=== PATIENT | female | born 1975 | race African-American/Black ===

== ENCOUNTER 2016-11-17 14:30 | Inpatient (IN) | payer OTHER ==
[2016-11-17] VITALS (8 sets, daily range): BP systolic 80–98; BP diastolic 42–55; BMI 27.3
[~2016-11-17] VITALS: Ht 160 cm; Wt 74.8 kg
--- NOTE | ~2016-11-17 | CN ---
PATIENT NAME:SHARON BELTRE MEDICAL RECORD: [id number] : 71 LOCATION:[facility]CV[facility] ADMIT DATE: 11/17/16 ACCOUNT: [id number] CONSULTING PHYSICIAN: TRACIE TROY MD REFERRING PHYSICIAN: RIO SY MD DATE OF CONSULTATION: 11/18/2016 Cardiology Consultation ADMITTING DIAGNOSES: 1. Chest pain. 2. Coronary artery disease. 3. Previous percutaneous transluminal coronary angioplasty stent. 4. Diabetic ketoacidosis. 5. Insulin-dependent diabetes. HISTORY OF PRESENT ILLNESS: Mrs. Beltre presents with diabetic ketoacidosis. She is well having chest pain; however, her chest pain is not like her previous angina. Her chest pain is only present when she coughs. She has no ST-T changes on her EKG. Troponin is mildly elevated at 0.239. Creatinine is normal at 1.1, hemoglobin is mildly depressed at 11.4. She has a history of a recent GI bleed for which she was treated at [facility]. She has not had any further bleeding. PHYSICAL EXAMINATION: GENERAL APPEARANCE: Well-nourished, well-developed, appears stated age. Level of distress, comfortable. PSYCHIATRIC: Mental status, alert, normal affect. Orientation, oriented to time, place and person. EYES: Lids and conjunctiva, noninjected. No discharge, no pallor. ENT: Lips, teeth, gums, normal dentition. Oropharynx, no cyanosis, no pallor. NECK: Carotid arteries, bilateral normal upstroke, no bruits, no thrills. JUGULAR VEINS: No jugular venous pressure or distention. CERVICAL LYMPH NODES: Nontender, nonenlarged. THYROID: Not enlarged. Nontender. No nodules. LUNGS: Respiratory effort, unlabored. CHEST: Normal curvature. No thoracic deformity. No chest wall tenderness. Percussion, resonant. Auscultation, clear. No wheezes, no rales, no rhonchi. CARDIOVASCULAR: Precordial exam, nondisplaced. No heaves or pericardial thrills. Rate and rhythm, regular. Heart sounds, normal S1, normal S2. No S3, no gallop, no rub. Systolic murmur, not heard. Diastolic murmur, not heard. EXTREMITIES: No cyanosis, no edema. Peripheral pulses, full and equal in all extremities, except as noted. No bruits appreciated. ABDOMEN: Soft, nondistended. Normal aorta. No bruit. Nontender. No masses. Liver, nontender, no hepatomegaly. Spleen, nontender, no splenomegaly. MUSCULOSKELETAL: No joint tenderness. No joint swelling. No erythema. NEUROLOGICAL: Normal gait, normal strength, normal tone. SKIN: Warm and dry. OVERALL IMPRESSION: Mildly elevated troponin with chest pain. The chest pain is musculoskeletal in nature. Due to a recent gastrointestinal bleed, we would not undertake repeat coronary angiography or percutaneous coronary intervention. She is stable from the standpoint of bleeding. We would not reintroduce dual antiplatelet therapy at this time. Her EKG is with no ST-T abnormalities. At this time, no other cardiac workup or treatment is necessary. CONSULT REPORT [id number] SHARON BELTRE TRANSINT:[id number] Voice Confirmation ID: [id number] DOCUMENT ID: [id number] TRACIE TROY MD CC: [id number] DICTATION DATE: 11/18/16939 KINDERGARTEN PARAPROFESSIONAL: 11/18/16 1347 ADM IN [place] [id number] [place] [id number]
[2016-11-17 15:49] LABS: BASOPHILS 0.2 % (0-2); EOSINOPHILS 0.9 % (0-7); HEMATOCRIT 35.4 % (36.0-48.0); HEMOGLOBIN 12.1 g/dL (12-16); LYMPHOCYTES 34.6 % (15-50); MCH 27.9 pg (26.0-34.0); MCHC 34.2 g/dL (31.0-37.0); MCV 81.8 fL (80.0-100.0); MEAN PLATELET VOLUME 10.7 fL (7.4-10.4); MONOCYTES 10.6 % (2-11); NEUTROPHILS 53.7 % (40-80); PLATELET COUNT 316 10x3/uL (130-400); RBC 4.33 10x6/uL (4.00-5.40); RDW 14.4 % (11.5-14.5); WBC 5.4 10x3/uL (4.8-10.8)
[2016-11-17 16:26] LABS: ALBUMIN 3.8 g/dL (3.4-5.0); BILIRUBIN - TOTAL 0.44 mg/dL (0.2-1.3); CALCIUM 9.2 mg/dL (8.5-10.1); CARBON DIOXIDE 25.5 mmol/L (21.0-32.0); CREATININE - SERUM 1.4 mg/dL (0.6-1.3); POTASSIUM - SERUM 3.5 mmol/L (3.5-5.1)
[2016-11-17 16:32] LABS: TROPONIN-I 0.404 ng/mL (0.000-0.060)
--- NOTE | 2016-11-17 18:36 | NUR ---
Received patient from ER via stretcher. Patient awoken and was able to slide from stretcher to bed. Patient is lethargic. Oriented to person, place and situation, reoriented to time. ID band, allery band and fall risk band applied, right hand PIV dated. Connected to CM, sinus tach, SBP 90s. Call light within reach.
--- NOTE | 2016-11-17 19:00 | NUR ---
Received patient resting in bed with eyes closed, assessment completed per flowsheet. Patient AO x4, grimacing and complaining of pain in chest and "lump" in abdomen. Eyes PERRLA @ 4mm with brisk response, sclera is white. S1/S2 noted Sinus Tach on telemetry with HR 102, rhythmic and regular. Breathing is even and unlabored on room air with O2 sat 96%, lung sounds clear bilateral upper and mid with diminished lower. Abdomen is soft and flat with bowel sounds active x4, generalized tenderness to palpation. Full ROM all extremities with all pulses weakly palpable, cap refill < 3 sec. 22g PIV noted R hand, NS @ 75ml/hr and Insulin drip @ 5ml/hr initiated. Patient c/o chest pain 9/10, acute sharp aching pain with PRN medication given. No further needs at this time, all VSS and will continue to monitor.
--- NOTE | 2016-11-17 19:24 | NUR ---
Spoke to received orders, informed of patient consult and current condition. Spoke to , ordered for EKG at this time. Informed of patients current condition. Report given to Daron OSWALD.
--- NOTE | 2016-11-17 20:40 | NUR ---
Spoke to Dr Kearns, new orders received. Insulin drip D/C, change to High resistance Humalog scale. 500ml saline bolus given for hypotension. Lovenox 1mg subcutaneous ordered Q12 hrs. Orders read back and confirmed.
--- NOTE | 2016-11-17 23:00 | NUR ---
Reassessment completed per floweet, patient resting in bed with eyes closed. S1/S2 noted Sinus Tach on telemetry with HR 103, rhythmic and regular. Breathing is even and unlabored on room air with O2 sat 96%. All pulses weakly palpable with cap refill < 3 sec. patient states pain 7/10 in chest and abdomen, PRN medication given and will reasses. No further needs at this time, all VSS and will continue to monitor.
--- NOTE | 2016-11-17 23:45 | NUR ---
Patient BS 386, treated per [facility] High Resistance scale. Will recheck in 3 hours per orders.
[2016-11-18] VITALS (21 sets, daily range): BP systolic 95–183; BP diastolic 44–111; Ht 160 cm; Wt 74.8 kg
--- NOTE | 2016-11-18 01:00 | NUR ---
Patient c/o headache, PRN medication provided and BS rechecked. Patient BS 247. Will continue to monitor.
--- NOTE | 2016-11-18 03:00 | NUR ---
Reassessment completed per flowsheet, patient resting in bed with eyes open talking to family on the phone. Patient AO x4, calm and cooperative. States her sugar "so high because she's afraid she'll kill herself, so she hasn't been taking her insulin". Educated patient about insulin usage and checking blood sugar, but more education is needed. S1/S2 noted NSR on telemetry with HR 99, rhythmic and regular. Breathing is even and unlabored on room air with O2 sat 96%, lung sounds clear bilateral upper with crackles noted mid and diminished lower. All pulses palpable with cap refill < 3 sec, skin is warm/dry to touch. Patient c/o "slight headache" and chest discomfort, will provide PRN medication when patient requests. No further needs at this time, all VSS and will continue to monitor.
--- NOTE | 2016-11-18 05:00 | NUR ---
Patient assisted to bathroom, concentrated yellow urine noted. Denies pain or other needs at this time, all VSS and will continue to monitor.
[2016-11-18 06:55] LABS: BASOPHILS 0.1 % (0-2); EOSINOPHILS 0.8 % (0-7); HEMATOCRIT 33.4 % (36.0-48.0); HEMOGLOBIN 11.4 g/dL (12-16); IMMATURE GRANULOCYTES 0.1 % (0-5); LYMPHOCYTES 27.8 % (15-50); MCH 28.2 pg (26.0-34.0); MCHC 34.1 g/dL (31.0-37.0); MCV 82.7 fL (80.0-100.0); MEAN PLATELET VOLUME 10.4 fL (7.4-10.4); MONOCYTES 7.3 % (2-11); NEUTROPHILS 63.9 % (40-80); PLATELET COUNT 265 10x3/uL (130-400); RBC 4.04 10x6/uL (4.00-5.40); RDW 14.7 % (11.5-14.5)
[2016-11-18 07:38] LABS: ANION GAP 11.6 mmol/L (8-16); CALCIUM 8.4 mg/dL (8.5-10.1); CARBON DIOXIDE 26.4 mmol/L (21.0-32.0); CREATININE - SERUM 1.1 mg/dL (0.6-1.3)
[2016-11-18 07:51] LABS: TROPONIN-I 0.239 ng/mL (0.000-0.060)
--- NOTE | 2016-11-18 08:05 | NUR ---
SPOKE WITH PT ABOUT HER HOME INSULIN REGIMEN. STATES SHE TAKES 20 UNITS OF LEVIMIR TWICE DAILY AND A SLIDING SCALE THAT AVERAGES 10-15 UNITS EACH TIME. STATES SHE CHECKS HER FSBS 6-8 TIMES DAILY. C/O OF "CHEST PAIN" IN HER LUNGS WHEN SHE COUGHS. ENCOURAGED COUGHING AND DEEP BREATHING. STATES SHE HAS HAD A "KNOT ON THE LEFT SIDE" OF HER FACE AND HAS "BAD TEETH".
--- NOTE | 2016-11-18 09:02 | NUR ---
C/O OF PAIN. REQUESTING PAIN MEDS. STATES PAIN IS "THE SAME THIS MORNING" AND HURTS WHEN SHE COUGHS. NO CHANGES IN HEAD OF PRECISION TARGETING OR VITAL SIGNS.
--- NOTE | 2016-11-18 09:40 | NUR ---
HOT PACK REQUESTED AND PROVIDED.
--- NOTE | 2016-11-18 10:16 | NUR ---
DELROY DIETITIAN AT BEDSIDE.
[2016-11-18] MEDS ORDERED: HYDROCODONE-APA1 TAB PO (11:39)
[2016-11-18] MEDS ORDERED: NITROQUICK0.4 MG SL (11:39)
[2016-11-18] MEDS ORDERED: LEVEMIR100 U/M1 SC (11:40)
[2016-11-18] MEDS ORDERED: GLUCOPHAGE500 MG PO (11:40)
[2016-11-18] MEDS ORDERED: NEURONTIN 300300 MG PO (11:41)
[2016-11-18] MEDS ORDERED: NORVASC5 MG PO (11:41)
[2016-11-18] MEDS ORDERED: RANEXA500 MG PO (11:41)
[2016-11-18] MEDS ORDERED: BRILINTA90 MG PO (11:41)
[2016-11-18] MEDS ORDERED: LISINOPRIL5 MG PO (11:42)
[2016-11-18] MEDS ORDERED: ISOSORBIDE MON120 M1 PO (11:42)
[2016-11-18] MEDS ORDERED: COREG6.25 MG PO (11:43)
[2016-11-18] MEDS ORDERED: ISOSORBIDE MONO30 M1 PO (11:43)
[2016-11-18] MEDS ORDERED: PROTONIX40 MG PO (11:44)
[2016-11-18] MEDS ORDERED: LIPITOR80 MG PO (11:44)
--- NOTE | 2016-11-18 12:10 | NUR ---
VISITORS AT BEDSIDE. MEDICATIONS PER MAR.
--- NOTE | 2016-11-18 14:55 | NUR ---
CALLED NURSE-STATED CHEST HURT NOT ABLE TO SPECIFY CAUSE -08/17-MORPHINE 1MG IVP GIVEN-N/S AT 30ML/H-FAMILY APPROACHED DESK ASKING WHAT IS GOING ON WITH --RETURNED TO ROOM WITH FAMILY AND OBTAINED PT PERMISSION--PT STATED TO FAMILY BEING TESTED FOR PNUEMONIA-
--- NOTE | 2016-11-18 14:59 | NUR ---
FAMILY AT BEDSIDE. PERMISSION FROM PT TO SPEAK WITH FAMILY GIVEN. ALL QUESTIONS ANSWERED. FAMILY STATES "DID YOU SEE THE DOCTOR WHO YOU GOT KICKED OUT FROM?" PT STATES "YES I SAW HIM TODAY. I SWEAR HE WAS DRUNK". FAMILY APOLOGIZES AND STATES "HE WAS NOT DRUNK. WE ARE SO SORRY SHE SAID THAT" NO FURTHER QUESTIONS OR CONCERNS.
--- NOTE | 2016-11-18 19:00 | NUR ---
RECIEVED REPORT, INITIAL ASSESSMENT COMPLETE, PLEASE SEE FLOW SHEETS FOR DETAILS. A&O X4. C/O PAIN 8/10 IN HEAD AND CHEST, WILL GIVE PAIN MEDS PER ORDERS. MOVES SELF AROUND IN BED. CONCERNED ABOUT RESULTS OF CT THIS EVENING, INFORMED HER IT COULD BE IN THE MORNING THAT SHE GETS HER RESULTS BUT IF THEY CAME IN SOONER I WOULD LET HER KNOW. ASKING FOR A SNACK, WILL GIVE AN APPROPROATE SNACK PER DIET ORDERS. PIV TO RIGHT HAND CDI, NS INFUSING AT 25ML/HR. WILL CPOC.
--- NOTE | 2016-11-18 21:00 | NUR ---
TOLERATED MEDS WELL, ASKED FOR PAIN MED, WILL GIVE PER ORDERS.
--- NOTE | 2016-11-18 21:14 | NUR ---
PROVIDED PAIN MED, PT WAS UP TO RR, WILL CPOC.
--- NOTE | 2016-11-18 21:39 | NUR ---
AFTER PATIENT GOT BACK FROM RR, INFORMED ME THAT HER IV WAS LEAKING, CHECKED ON IV AND WAS ABLE TO FLOAT BACK INTO VEIN ALL THE WAY, IV IS PATENT, NEW DRESSING APPLIED. ALSO PROVIDED PERSONAL HYGIENE SUPPLIES, PT WAS VERY THANKFUL FOR THESE.
--- NOTE | 2016-11-18 22:51 | NUR ---
PT RESTING IN BED, NO S&S OF ACUTE DISTRESS NOTED. BED LOW AND LOCKED, CALL LIGHT IN REACH. WILL CPOC.
--- NOTE | 2016-11-19 01:00 | NUR ---
PROVIDED Chaitanya PEREA AND AYDEN PER PT REQUEST. C/O PAIN, GAVE PAIN MEDS PER ORDERS. BED LOW AND LOCKED, CALL LIGHT IN REACH. WILL CPOC.
[2016-11-19 03:00] VITALS: BP 118/79
--- NOTE | 2016-11-19 03:10 | NUR ---
SLEEPING, NO S&S OF DISTRESS NOTED. WILL CPOC.
[2016-11-19 04:25] LABS: BASOPHILS 0.2 % (0-2); EOSINOPHILS 1.9 % (0-7); HEMATOCRIT 31.5 % (36.0-48.0); HEMOGLOBIN 10.3 g/dL (12-16); MCH 27.7 pg (26.0-34.0); MCHC 32.7 g/dL (31.0-37.0); MEAN PLATELET VOLUME 10.3 fL (7.4-10.4); NEUTROPHILS 49.9 % (40-80); PLATELET COUNT 244 10x3/uL (130-400); RBC 3.72 10x6/uL (4.00-5.40); RDW 14.9 % (11.5-14.5)
[2016-11-19 04:33] LABS: MCV 84.7 fL (80.0-100.0); WBC 5.9 10x3/uL (4.8-10.8)
--- NOTE | 2016-11-19 04:37 | NUR ---
PAGING STOCK REPLENISHER RENAL MD AFTER ALL LABS RECIEVED.
[2016-11-19 04:40] LABS: ANION GAP 10.4 mmol/L (8-16); CALCIUM 8.1 mg/dL (8.5-10.1); CARBON DIOXIDE 26.8 mmol/L (21.0-32.0); CREATININE - SERUM 1.1 mg/dL (0.6-1.3); POTASSIUM - SERUM 3.2 mmol/L (3.5-5.1)
--- NOTE | 2016-11-19 05:00 | NUR ---
RESTING, BED LOW AND LOCKED, CALL LIGHT IN REACH. WILL CPOC.
--- NOTE | 2016-11-19 06:05 | NUR ---
REQUESTED PAIN MEDS, THESE WERE PROVIDED PER ORDERS.
[2016-11-19 07:00] VITALS: BP 141/91
--- NOTE | 2016-11-19 07:53 | NUR ---
PT AWAKE IN BED AT THIS TIME. DENIES ANY NEEDS. NOTED POTASSIUM LEVEL IS 3.2 PT IS ON ELECTROLYTE PROTOCOL, WILL REPLACE POTASSIUM PER ORDERS. NO ACUTE DISTRESS NOTED. WILL CONTINUE PLAN OF CARE.
[2016-11-19] MEDS ORDERED: HYDROCODONE-APA1 TAB PO (08:23)
[2016-11-19] MEDS ORDERED: FLUTICASONE PRO16 GM NASAL (08:25)
[2016-11-19] MEDS ORDERED: INSULINSYR&NEEDLES SC (08:26)
--- NOTE | 2016-11-19 09:22 | NUR ---
LYING IN BED RESTING AT THIS TIME. NO ACUTE DISTRESS NOTED. RESPIRATIONS STEADY AND UNLABORED. PT ABLE TO STATE NEEDS AND AWAKENS EASILY WHEN SPOKEN TO. WILL CONTINUE PLAN OF CARE.
--- NOTE | 2016-11-19 09:34 | NUR ---
NOTED ORDER FOR PT TO BE DISCHARGED HOME. CONTACTING CASE MANAGEMENT TO NOTIFY WELL TO SEE IF CAN GET REFERRAL TO ENDOCRINOLOGY, DR CARIAS. SPOKE WITH CASE MANAGEMENT AND STATED REFERRAL ORDER AND PATIENT INFORMATION WILL BE FAXED TO SE CARIAS'S OFFICE MONDAY AND TO HAVE PT CALL DR CARIAS'S OFFICE. ALSO NOTED FOR PT TO CALL PCP MONDAY TO SET UP APPOINTMENT IN 1 WEEK. WILL ALSO GIVE A COPY OF HIGH RESISTANCE SLIDING SCALE FOR PT TO USE ACHS. PT TO BE ON ADA DIET. PT TO FOLLOW UP WITH CARDIOLOGY PER CARDIOLOGY RECCOMENDATIONS. WILL NOTIFY PT WITH DISCHARGE TEACHINGS. WILL CONTINUE PLAN OF CARE.
--- NOTE | 2016-11-19 10:43 | NUR ---
DISCHARGE PAPERWORK SIGNED BY PT. PT DENIES ANY QUESTIONS OR CONCERNS. PT GIVEN HARD SCRIPTS, INFORMATION REGARDING UPCOMING APPOINTMENTS AND STATES UNDERSTANDING TO CONTACT DR. GAYLE TO MAKE AN APPOINTMENT IN A WEEK AND STATES UNDERSTANDING TO CONTACT DELIVERER FOOD DR CARIAS MONDAY AND THAT CASE MANAGEMENT WILL FAX PT INFORMATION TO OFFICE. PT ALSO GIVEN COPY OF HIGH RESISTANCE SLIDING SCALE INFORMATION PER PHYSICIAN ORDER. PT STATED DR TROY STATED HIS OFFICE WILL CONTACT HER TO MAKE AN APPOINTMENT. PT DENIES ANY QUESTIONS OR CONCERNS. WILL CONTINUE PLAN OF CARE.
[2016-11-19 11:00] VITALS: BP 148/94
--- NOTE | 2016-11-19 11:33 | NUR ---
IV TO RIGHT HAND DC AT THIS TIME, CATHETER TIP INTACT. PTS DAUGHTER HERE AT THIS TIME TO TAKE PT HOME. WILL DISCHARGE SHORTLY.
--- NOTE | 2016-11-19 11:41 | NUR ---
PT DISCHARGED HOME AT THIS TIME. NO ACUTE DISTRESS NOTED. NOTED PT REFUSED ALLOWING STAFF TO CHECK BLOOD SUGAR LEVEL TO TREAT VIA SLIDING SCALE STATING HER BLOOD SUGAR WAS 117 EARLIER WHEN CHECKED AND SHE WAS READY TO GO HOME. PT RECIEVED ALL DISCHARGE PAPERWORK AND DENIES ANY QUESTIONS OR CONCERNS. LEFT WITH ALL PERSONAL ITEMS, DISCHARGE PAPERWORK, HARD SCRIPTS, UPCOMING APPOINTMENT INFORMATION, AND ALL TEACHING INFORMATION. PT DENIES ANY FURTHER QUESTIONS OR CONCERNS AND STATES UNDERSTANDING TO ALL TEACHINGS, INFORMATION REGARDING UPCOMING APPOINTMENTS, WELL DISCHARGE INFORMATION. LEFT VIA PERSONAL VEHICLE WITH DAUGHTER. NO FURTHER ACTIONS.
== END 2016-11-19 11:45 | disposition home or self-care (01) | DRG 313 ==
LOC: D.ER 14:30 → D.CVICU 17:20
PROVIDERS: Emergency Medicine; Internal Medicine Interventional Cardiology; ADMIT Family Medicine
DX: R07.9 Chest pain, unspecified (principal); E10.10 Type 1 diabetes mellitus with ketoacidosis without coma; Z79.4 Long term (current) use of insulin; E11.40 Type 2 diabetes mellitus with diabetic neuropathy, unspecified; I25.10 Atherosclerotic heart disease of native coronary artery without angina pectoris; Z95.1 Presence of aortocoronary bypass graft; Z95.5 Presence of coronary angioplasty implant and graft; R79.89 Other specified abnormal findings of blood chemistry; J32.9 Chronic sinusitis, unspecified

== ENCOUNTER 2018-04-03 03:56 | Inpatient (IN) | payer MEDICAID ==
[2018-04-03] VITALS (27 sets, daily range): BP systolic 109–234; BP diastolic 57–101; BMI 26.9
[~2018-04-03] VITALS: Ht 160 cm; Wt 71.0 kg
--- NOTE | ~2018-04-03 | MORECARE ---
CASE MANAGEMENT DISCHARGE SUMMARY PATIENT: SHARON APONTE UNIT: [id number] ADM DATE: 04/03/18 AGE: 42 : [birth year] SEX: F ROOM/BED: D.CV02 AUTHOR: KRISTOPHER,DOC PHYSICIAN: REFERRING PHYSICIAN: LAURIE RIVERO MD DATE OF SERVICE: 04/05/18 Discharge Plan Patient Name: SHARON APONTE Facility: [facility]:[place] : 1975 Planned Disposition: Home Anticipated Discharge Date: Discharge Date: Expected LOS: Initial Reviewer: [email or web address] Initial Review Date: 04/05/2018 Generated: 04/05/18 2:17 pm Comments DCP- Discharge Planning Updated by [email or web address]: Neelam Henley on 04/05/18 12:[address] Patient Name: SHARON APONTE Admission Status: ER Accout number: [id number] Admission Date: 04-03-2018 : 1975 Admission Diagnosis: Attending: LAURIE HERNANDEZ Current LOS: 2 Anticipated DC Date: Planned Disposition: Home Primary Insurance: MEDICAID [place] Discharge Planning Comments: CM met with patient at bedside. Patient plans to return home with her daughter. She states her daughter will transfer her home upon discharge via private vehicle. Patient denies any discharge needs. Patient requested information on cardiac rehab. CM called and left message with Denise at [facility]. CM will continue to follow and assist with discharge planning / needs. Slps: Neelam Henley DCPIA - Discharge Planning Initial Assessment Updated by [email or web address]: Neelam Henley on 04/05/18 1:06 pm * Is the patient Alert and Oriented? Yes * How many steps to enter\exit or inside your home? 10 * PCP [facility] * Pharmacy [facility] * Preadmission Environment Home with Family * ADLs Independent * Equipment Cane * List name and contact numbers for known caregivers / representatives who currently or will assist patient after discharge: CORINA APONTE -DAUGHTER - [phone] * Verbal permission to speak to the caregivers and representatives has been obtained from the patient. N/A * Community resources currently utilized None * Additional services required to return to the preadmission environment? No * Can the patient safely return to the preadmission environment? Yes * Has this patient been hospitalized within the prior 30 days at any hospital? No Last DP export: 04/05/18 12:10 Patient Name: SHARON APONTE Page 39837 at 1317 All edits/amendments must be made on the electronic document DICTATION DATE: 04/05/181315 SAMPLE TAILOR: EMILY 04/05/181315 RPT#: [id number] DC DATE: STATUS: ADM IN [facility] [address] [place] [address] END OF REPORT
--- NOTE | ~2018-04-03 | MORECARE ---
CASE MANAGEMENT DISCHARGE SUMMARY PATIENT: SHARON APONTE UNIT: [id number] ADM DATE: 04/03/18 AGE: 42 : 71 SEX: F ROOM/BED: D.CV02 AUTHOR: KRISTOPHER,DOC PHYSICIAN: REFERRING PHYSICIAN: LAURIE RIVERO MD DATE OF SERVICE: 04/06/18 Discharge Plan Patient Name: SHARON APONTE Facility: [facility]:[place] : 1975 Planned Disposition: Home Anticipated Discharge Date: Discharge Date: 04/05/2018 Expected LOS: Initial Reviewer: [email or web address] Initial Review Date: 04/05/2018 Generated: 04/06/18 7:51 pm Comments DCP- Discharge Planning Updated by [email or web address]: Neelam Henley on 04/05/18 12:[address] Patient Name: SHARON APONTE Admission Status: ER Accout number: [id number] Admission Date: 04-03-2018 : 1975 Admission Diagnosis: Attending: LAURIE HERNANDEZ Current LOS: 2 Anticipated DC Date: Planned Disposition: Home Primary Insurance: MEDICAID [place] Discharge Planning Comments: CM met with patient at bedside. Patient plans to return home with her daughter. She states her daughter will transfer her home upon discharge via private vehicle. Patient denies any discharge needs. Patient requested information on cardiac rehab. CM called and left message with Denise at [facility]. CM will continue to follow and assist with discharge planning / needs. Freelance [address] Stenographer: Neelam Henley DCPIA - Discharge Planning Initial Assessment Updated by [email or web address]: Neelam Henley on 04/05/18 1:06 pm * Is the patient Alert and Oriented? Yes * How many steps to enter\exit or inside your home? 10 * PCP [facility] * Pharmacy [facility] * Preadmission Environment Home with Family * ADLs Independent * Equipment Cane * List name and contact numbers for known caregivers / representatives who currently or will assist patient after discharge: CORINA APONTE -DAUGHTER - [phone] * Verbal permission to speak to the caregivers and representatives has been obtained from the patient. N/A * Community resources currently utilized None * Additional services required to return to the preadmission environment? No * Can the patient safely return to the preadmission environment? Yes * Has this patient been hospitalized within the prior 30 days at any hospital? No Last DP export: 04/05/18 12:17 Patient Name: SHARON APONTE Page 26601 at 1851 All edits/amendments must be made on the electronic document DICTATION DATE: 04/06/181849 TURKEY PINNER: EMILY 04/06/181849 RPT#: [id number] DC DATE:04/05/18 STATUS: DIS IN [facility] [address] [place] [address] END OF REPORT
--- NOTE | ~2018-04-03 | HEMODYNAMI ---
PATIENT:SHARON APONTE MEDICAL RECORD: [id number] : 71 LOCATION:[facility] D.CV02 ADMISSION DATE: 04/03/18 Generatedon:04/05/20188:16 Patient name: SHARON APONTE Patient #: [id number] SSN: : 1975 Date of study: 04/05/2018 Page: Of Hemodynamic Procedure Report Patient Data Patient Demographics Procedure consent was obtained First Name: SHARON Gender: Female Last Name: FADI : 1975 Patient #: [id number] Age: 42 year(s) Race: Black Additional ID: [id number] Contact details Address: [address] [place] [address] State: [place] City: [place] Zip code: [address] Admission Admission Data Admission Date: 04/03/2018 Admission Time: 7:12 Room #: [facility] Procedure Procedure Types Cath Procedure Diagnostic Procedure LHC LHC w/Coronaries w/Grafts Procedure Description Procedure Date Procedure Date: 04/05/2018 Procedure Start Time: 7:36 Procedure End Time: 8:12 Procedure Staff Name Function Erlin Carlos MD Performing Physician Mau Martínez RT Monitor Houston Davis RT Monitor Cathy Valdes RN Nurse Pastora Rebolledo RT Scrub Procedure Data Cath Procedure Fluoroscopy Diagnostic fluoroscopy Total fluoroscopy Time: 5.7 time: 5.7 min min Diagnostic fluoroscopy Total fluoroscopy dose: 507 dose: 507 mGy mGy Contrast Material Contrast Material Type Amount (ml) Visipaque 270 0 Isovue 300 88 Entry Location Entry Primary Successful Side Size Upsize Upsize Entry Closure Succes sful Closure Location (Fr) 1 (Fr) 2 (Fr) Remarks Device Remarks Femoral Right 5 Fr Exoseal artery Diagnostic catheters Device Type Used For End Catheter Placement MULTIPACK JL 4.0 5Fr Procedure catheter DIAGNOSTIC AR MOD 5Fr Right Coronary Catheter ([id number]) Angiography DIAGNOSTIC LCB 5Fr SVG Angiography catheter ([id number]) DIAGNOSTIC IM 5Fr SVG Angiography catheter ([id number]) MULTIPACK Pigtail 5 Fr Procedure catheter Procedure Complications No complications Procedure Medications Medication Administration Route Dosage 0.9% NaCl I.V. 100 ml/hr Oxygen etCO2 Nasal cannula 2 l/min Lidocaine 2% added to field 20 Heparin Flush Bag added to field 2 bags (1000units/500ml NS) Versed I.V. 2 mg Fentanyl I.V. 100 mcg Versed I.V. 2 mg Fentanyl I.V. 50 mcg Versed I.V. 2 mg Fentanyl I.V. 50 mcg Hemodynamics Rest Heart Rate: 85 (bpm) Pressure Samples Time Site Value (mmHg) Purpose Heart Use Rate(bpm) 7:59 AO 89/68(78) Snapshot 98 8:03 LV 128/3,12 Snapshot 101 8:07 AO 116/66(85) Pullback 98 8:07 LV 114/-2,7 Pullback 98 Gradients Valve Time Site 1 Site 2 Mean SEP/DFP Peak To Heart Use (mmHg) (sec/min) Peak Rate (mmHg) (bpm) Aortic 8:03 LV AO 99 Aortic 8:07 LV AO 0 9 0 98 114/-2,7 116/66(85) Calculations Valve P-P Mean Valve Index Valve Source Name Gradient Area Flow (cm2) Aortic 0 0 0 0 Snapshots Pre Cath Intra NCS Post Cath Vital Signs Time Heart Resp SPO2 etCO2 NIBP (mmHg) Rhythm Pain Sedation Rate (ipm) (%) (mmHg) Status Level (bpm) 7:24:10 68 19 96 33.5 221/113(160) NSR 0 (11) 10(A) , No pain 7:28:34 93 13 97 36.4 143/95(119) NSR 0 (11) 10(A) , No pain 7:32:47 90 12 98 35.6 118/78(95) NSR 0 (11) 10(A) , No pain 7:36:54 96 12 99 41.6 122/78(86) NSR 0 (11) 10(A) , No pain 7:40:58 98 16 98 44.6 105/78(102) NSR 0 (11) 10(A) , No pain 7:45:02 102 14 97 23.7 95/78(91) NSR 0 (11) 9(A) , No pain 7:49:05 103 12 96 14.1 109/67(85) NSR 0 (11) 9(A) , No pain 7:53:15 102 14 98 30.4 127/64(85) NSR 0 (11) 9(A) , No pain 7:57:25 104 13 97 11.1 104/67(101) NSR 0 (11) 9(A) , No pain 7:59:44 103 13 96 11.8 111/69(108) NSR 0 (11) 9(A) , No pain 8:03:52 96 13 98 28.1 111/65(85) NSR 0 (11) 9(A) , No pain 8:07:58 97 13 98 30 101/66(94) NSR 0 (11) 10(A) , No pain 8:12:43 100 3 97 31.1 94/65(88) NSR 0 (11) 10(A) , No pain Medications Time Medication Route Dose Verified Delivered Reason Notes Effe ctiveness by by 7:23:35 0.9% NaCl I.V. 100 Erlin Cathy used for ml/hr Terrance Valdes creative specialist 7:23:42 Oxygen etCO2 2 Erlin Cathy used for Nasal l/min Terrance Valdes procedure cannula RN 7:23:49 Lidocaine 2% added 20ml Erlin Erlin for local to vial Terrance Carlos MD anesthetic field 7:23:53 Heparin Flush added 2 Erlin Erlin used for Bag to bags Terrance Carlos MD procedure (1000units/500ml field NS) 7:31:38 Versed I.V. 2 mg Erlin Cathy for Terrance Valdes sedation RN 7:31:44 Fentanyl I.V. 100 Erlin Cathy for mcg Terrance Valdes sedation RN 7:36:41 Versed I.V. 2 mg Erlin Cathy for Terrance Valdes sedation RN 7:36:56 Fentanyl I.V. 50 Erlin Cathy for mcg Terrance Valdes sedation RN 7:40:36 Versed I.V. 2 mg Erlin Cathy for Terrance Valdes sedation RN 7:40:40 Fentanyl I.V. 50 Erlin Cathy for mcg Terrance Valdes sedation computer information systems instructor Log Time Note 7:00:58 Cathy Valdes RN sent for patient. Start room use. 7:16:06 Time tracking: Regular hours (M-F 7:00 - 5:00) 7:16:10 Plan of Care:Hemodynamics will remain stable., Cardiac rhythm will remain stable., Comfort level will be maintained., Respiratory function will remain adequate., Patient/ family verbilizes understanding of procedure., Procedure tolerated without complication., Recovers from procedure without complications.. 7:16:32 Patient received from CVICU to CCL 1 Alert and oriented. Tansferred to table in Supine position. 7:16:34 Warm blankets applied, and chanel hugger turned on for patient comfort. 7:16:34 Correct patient and procedure confirmed by team. 7:16:36 Signed procedure consent form obtained from patient. 7:16:43 ECG and BP/O2 sat monitors applied to patient. 7:21:42 Vital chart was started 7:23:35 0.9% NaCl 100 ml/hr I.V. was administered by Cathy Valdes RN; used for procedure; 7:23:42 Oxygen 2 l/min etCO2 Nasal cannula was administered by Cathy Valdes RN; used for procedure; 7:23:49 Lidocaine 2% 20ml vial added to field was administered by Erlin Carlos MD; for local anesthetic; 7:23:53 Heparin Flush Bag (1000units/500ml NS) 2 bags added to field was administered by Erlin Carlos MD; used for procedure; 7:28:54 Baseline sample Acquired. 7:29:57 Rhythm: sinus rhythm 7:29:58 Full Disclosure recording started 7:30:03 H&P Date Dictated: 04/05/2018 Within 30 days and on chart.. 7:30:04 Pre-procedure instructions explained to patient. 7:30:05 Pre-op teaching completed and patient verbalized understanding. 7:30:08 Family unavailable. 7:30:09 Patient NPO since Midnight. 7:30:10 Is the patient allergic to Iodine/contrast media? Yes. 7:30:12 Was the patient premedicated? Yes 7:30:12 Is patient on blood thinner?No 7:30:15 Patient diabetic? Yes. 7:30:16 If diabetic: On Metformin? Yes 7:30:27 Last dose unkown. 7:30:32 Previous problem with sedation/anesthesia? No ? 7:30:35 Snore? No 7:30:36 Sleep apnea? No 7:30:38 Deviated septum? No 7:30:39 Opens mouth fully? Yes 7:30:40 Sticks out tongue? Yes 7:30:47 Airway obstruction? Yes Asthma, COPD 7:30:51 Dentures? No ? 7:30:53 Pre procedure: right dorsailis pedis pulse 1+ Palpable, but thready & weak; easily obliterated 7:30:55 Patient pain scale 0/10 ?. 7:31:01 IV patent on arrival in right wrist with 0.9% NaCl at O. 7:31:04 Lab results completed and on chart. 7:31:08 Right groin area was prepped with chlora-prep and draped in sterile fashion 7:31:10 Alarms reviewed by R. N. 7:31:10 Sharps counted by scrub and verified by R.N. 7:31:12 --------ALL STOP TIME OUT------ 7:31:14 Final Timeout: patient, procedure, and site verified with staff and physician. All members of the team are in agreement. 7:31:17 Right groin site verified by team. 7:31:20 Physical assessment completed. ASA score P 2 - A patient with mild systemic disease as per Erlin Carlos MD. 7:31:24 Sedation plan: IV Moderate Sedation Medication:Versed, Fentanyl 7:31:38 Versed 2 mg I.V. was administered by Cathy Valdes RN; for sedation; 7:31:44 Fentanyl 100 mcg I.V. was administered by Cathy Valdes RN; for sedation; 7:33:05 Use device set Femoral Dx 7:33:06 ACIST Syringe (09177) opened to sterile field. 7:33:07 Bag Decanter (2002) opened to sterile field. 7:33:07 Medline Cath Pack ([id number]) opened to sterile field. 7:33:07 DIAGNOSTIC WIRE .035 260cm J wire (747126) opened to sterile field. 7:33:09 ACIST Hand Control (29935) opened to sterile field. 7:33:09 ACIST Manifold (99619) opened to sterile field. 7:33:10 DIAGNOSTIC Multipack 5Fr catheter set (UV9205) opened to sterile field. 7:33:11 Tegaderm 4 x 4 (1626W) opened to sterile field. 7:33:13 SHEATH 5FR [place] (ILL563) opened to sterile field. 7:33:16 Procedure started. 7:33:23 Zero performed for pressure channel P1 7:36:41 Versed 2 mg I.V. was administered by Cathy Valdes RN; for sedation; 7:36:46 Local anesthetic to right femoral artery with Lidocaine 2% by Erlin Carlos MD.INITIAL ACCESS ONLY 7:36:55 Access obtained with 4Fr micropunture. 7:36:56 Fentanyl 50 mcg I.V. was administered by Cathy Valdes RN; for sedation; 7:40:36 Versed 2 mg I.V. was administered by Cathy Valdes RN; for sedation; 7:40:40 Fentanyl 50 mcg I.V. was administered by Cathy Valdes RN; for sedation; 7:41:31 MICROPUNCTURE 4FR Cook ([id number]) opened to sterile field. 7:47:06 A MULTIPACK JL 4.0 5Fr catheter was advanced over the wire and used for Procedure. 7:47:53 A 5 Fr sheath was inserted into the Right Femoral artery 7:48:39 LCA angiography performed. 7:49:39 Catheter exchanged over wire. 7:50:35 A DIAGNOSTIC AR MOD 5Fr Catheter ([id number]) was advanced over the wire and used for Right Coronary Angiography. 7:50:49 RCA angiography performed. 7:52:49 SVG to RCA angiography performed. 7:53:47 Catheter exchanged over wire. 7:55:21 A DIAGNOSTIC LCB 5Fr catheter ([id number]) was advanced over the wire and used for SVG Angiography. 7:55:33 SVG to Circ angiography performed. 7:57:44 Catheter exchanged over wire. 7:58:16 A DIAGNOSTIC IM 5Fr catheter (480263M) was advanced over the wire and used for SVG Angiography. 8:02:07 ZARAGOZA to LAD angiography performed. 8:02:37 Catheter exchanged over wire. 8:02:42 A MULTIPACK Pigtail 5 Fr catheter was advanced over the wire and used for Procedure. 8:03:22 LV angiography performed. 8:04:08 LV gram done using SALVADOR 8:04:14 EF : 55 % 8:04:41 LV hemodynamics recorded. 8:04:45 Injector settings: Ml/sec: 10, Volume: 20, 8:07:21 Catheter exchanged over wire. 8:08:19 Sheath removed intact; hemostasis achieved with Exoseal to the Right Femoral artery. 8:08:21 Procedure ended.(Physican Out) 8:08:38 Fluoroscopy time 05.70 minutes. 8:08:48 Fluoroscopy dose: 507 mGy 8:08:48 Flurop Dose total: 507 8:09:56 Contrast amount:Visipaque 270 0ml. 8:09:58 Contrast amount:Isovue 300 88ml. 8:10:00 Sharps counted by scrub and verified by R.N. 8:10:01 Insertion/operative site no bleeding no hematoma. 8:10:04 Post-op/insertion site Right Femoral artery dressed using a 4 x 4 and Tegaderm. 8:10:07 Post right femoral artery:stable 8:10:35 Post Procedure Pulses reassessed and unchanged 8:10:38 Post procedure: right dorsailis pedis pulse 1+ Palpable, but thready & weak; easily obliterated. 8:10:41 Post procedure rhythm: sinus rhythm 8:10:43 Post procedure instruction explained to patient.Patient verbalizes understanding. 8:10:59 Procedure type changed to Cath procedure, Diagnostic procedure, LHC, LHC w/Coronaries w/Grafts 8:11:03 Procedure and supply charges have been captured, reviewed, submitted and are correct. 8:11:15 EXOSEAL 5Fr (EX500) opened to sterile field. 8:11:50 Procedure Complication : No complications 8:11:54 Vital chart was stopped 8:11:55 See physician's report for complete and final results. 8:11:57 Report given to CVICU. 8:12:01 Patient transfered to CVICU with Bed. 8:12:06 Procedure ended. 8:12:06 Full Disclosure recording stopped 8:12:13 End room use (Document Last) Device Usage Item Name Manufacture Quantity Catalog Number Hospital Part Current Min imal Lot# / Charge Number Stock Stock Serial# Code ACIST Syringe Acist 1 99618 614186 731081 104272 20 (17258) Wiziva Inc Bag Decanter Microtek 1 148951 88673 133912 5 () Medical Inc. Medline Cath Medline 1 [id number] 964956 66668 157468 5 Pack ([id number]) DIAGNOSTIC [facility] [place] 1 351431 644417 826503 468126 30 WIRE .035 260cm J wire (580757) ACIST Hand Acist 1 40260 079429 731967 479777 5 Control Medical (84003) Systems Inc ACIST Acist 1 69244 021257 478191 108028 5 Manifold Medical (00576) Systems Inc DIAGNOSTIC Cardinal 1 [id number] 763951 81218 433123 30 Multipack 5Fr Health catheter set (AE2117) Tegaderm 4 x 3M 1 1626W 945631 726802 491443 5 4 (1626W) SHEATH 5FR Terumo 1 YWK191 768352 102697 832773 5 [place] (NHZ956) DIAGNOSTIC [place] 1 [id number] 606394 370958 72968 5 IMT 5Fr Scientific Catheter ([id number]) MICROPUNCTURE [facility] 1 U14887 965022 270366 216553 5 4FR Cook ([id number]) MULTIPACK JL Cardinal 1 868031 5 4.0 5Fr Health catheter DIAGNOSTIC AR Cardinal 1 [id number] 850870 049415 702107 15 MOD 5Fr Health Catheter (363107T) DIAGNOSTIC Cardinal 1 [id number] 887122 479136 121444 5 LCB 5Fr Health catheter (800726H) DIAGNOSTIC IM Cardinal 1 [id number] 581971 079413 895595 5 5Fr catheter Health (511007M) MULTIPACK Cardinal 1 794879 5 Pigtail 5 Fr Health catheter EXOSEAL 5Fr Cardinal 1 EX500 955073 997916 067934 10 (EX500) Health Signature Audit [place] Stage Time Signature Unsigned Intra-Procedure 04/05/2018 Mau Martínez RT(R) 8:15:58 AM Signatures Monitor : Mau Martínez RT Signature : Date : Time : Monitor : Houston Davis RT Signature : Date : Time : [address] [address]
--- NOTE | ~2018-04-03 | MORECARE ---
CASE MANAGEMENT DISCHARGE SUMMARY PATIENT: SHARON APONTE UNIT: [id number] ADM DATE: 04/03/18 AGE: 42 : [birth year] SEX: F ROOM/BED: D.[facility] AUTHOR: MARISA SUMMERS PHYSICIAN: REFERRING PHYSICIAN: LAURIE RIVERO MD DATE OF SERVICE: 04/05/18 Discharge Plan Patient Name: SHARON APONTE [facility] [facility] 1975 Planned Disposition: Home Anticipated Discharge Date: Discharge Date: Expected LOS: Initial Reviewer: [email or web address] Initial Review Date: 04/05/2018 Generated: 04/05/18 2:02 pm Patient Name: SHARON APONTE Page 15138 at 1302 All edits/amendments must be made on the electronic document DICTATION DATE: 04/05/18 1301 PROGRAM DEVELOPMENT SPECIALIST: EMILY 04/05/18 1301 RPT#: [id number] DC DATE: STATUS: ADM IN [facility] [address] [place] [address] END OF REPORT
--- NOTE | ~2018-04-03 | MORECARE ---
CASE MANAGEMENT DISCHARGE SUMMARY PATIENT: SHARON APONTE UNIT: [id number] ADM DATE: 04/03/18 AGE: 42 : 71 SEX: F ROOM/BED: D[facility] AUTHOR: MARISA SUMMERS PHYSICIAN: REFERRING PHYSICIAN: LAURIE RIVERO MD DATE OF SERVICE: 04/05/18 Discharge Plan Patient Name: SHARON APONTE [facility] [facility] 1975 Planned Disposition: Home Anticipated Discharge Date: Discharge Date: Expected LOS: Initial Reviewer: [email or web address] Initial Review Date: 04/05/2018 Generated: 04/05/18 2:10 pm DCPIA - Discharge Planning Initial Assessment Updated by [email or web address]: Neelam Henley on 04/05/18 1:06 pm * Is the patient Alert and Oriented? Yes * How many steps to enter\exit or inside your home? 10 * PCP MARY MCNAIR APN [facility] * Pharmacy [facility] * Preadmission Environment Home with Family * ADLs Independent * Equipment Cane * List name and contact numbers for known caregivers / representatives who currently or will assist patient after discharge: CORINA APONTE -DAUGHTER - [phone] * Verbal permission to speak to the caregivers and representatives has been obtained from the patient. N/A * Community resources currently utilized None * Additional services required to return to the preadmission environment? No * Can the patient safely return to the preadmission environment? Yes * Has this patient been hospitalized within the prior 30 days at any hospital? No Last DP export: 04/05/18 12:02 Patient Name: SHARON APONTE Page 86214 at 1310 All edits/amendments must be made on the electronic document DICTATION DATE: 04/05/18 1309 MOTOR VEHICLE TECHNICIAN: EMILY 04/05/18 1309 RPT#: [id number] DC DATE: STATUS: ADM IN [facility] [address] [place] [address] END OF REPORT
[~2018-04-03 03:56] MED LIST: BRILINTA90 MG PO; COREG6.25 MG PO; FLUTICASONE PRO16 GM NASAL; GLUCOPHAGE500 MG PO; HYDROCODONE-APA1 TAB PO; INSULINSYR&NEEDLES SC; ISOSORBIDE MON120 M1 PO; ISOSORBIDE MONO30 M1 PO; LEVEMIR100 U/M1 SC; LIPITOR80 MG PO; LISINOPRIL5 MG PO; NEURONTIN 300300 MG PO; NITROQUICK0.4 MG SL; NORVASC5 MG PO; PROTONIX40 MG PO; RANEXA500 MG PO
[2018-04-03 04:41] LABS: HEMATOCRIT 34.5 % (36.0-48.0); HEMOGLOBIN 11.2 g/dL (12-16); MCH 26.5 pg (26.0-34.0); MCHC 32.5 g/dL (31.0-37.0); MCV 81.8 fL (80.0-100.0); RBC 4.22 10x6/uL (4.00-5.40); WBC 5.4 10x3/uL (4.8-10.8)
[2018-04-03 04:42] LABS: PLATELET COUNT 308 10x3/uL (130-400)
[2018-04-03 04:51] LABS: APTT 25.8 SECONDS (22.8-39.4); INR 1.01 (0.85-1.17); PROTIME 12.8 SECONDS (11.6-15.0)
[2018-04-03 04:52] LABS: D-DIMER-QUANTITATIVE 1.28 ug/mLFEU (0.20-0.54)
[2018-04-03 04:56] LABS: ANION GAP 13.6 mmol/L (8-16); BILIRUBIN - TOTAL 0.15 mg/dL (0.2-1.3); CALCIUM 8.6 mg/dL (8.5-10.1); CARBON DIOXIDE 24.9 mmol/L (21.0-32.0); CREATININE - SERUM 0.9 mg/dL (0.6-1.3); POTASSIUM - SERUM 3.5 mmol/L (3.5-5.1); PROTEIN - SERUM 7.3 g/dL (6.4-8.2)
[2018-04-03 05:08] LABS: EOSINOPHILS 2 % (0-7); LYMPHOCYTES 49 % (15-50); MONOCYTES 3 % (2-11); NEUTROPHILS 46 % (40-80); PLATELET ESTIMATE NORMAL
[2018-04-03 05:10] LABS: MAGNESIUM - SERUM 1.5 mg/dL (1.8-2.4)
[2018-04-03 05:19] LABS: TROPONIN-I 2.819 ng/mL (0.000-0.060)
[2018-04-03 06:14] LABS: UDS - AMPHET NEGATIVE QUAL (NEGATIVE); UDS - BARB POSITIVE QUAL (NEGATIVE); UDS - BENZO NEGATIVE QUAL (NEGATIVE); UDS - COCAINE NEGATIVE QUAL (NEGATIVE); UDS - OPIATE POSITIVE QUAL (NEGATIVE); UDS - PCP NEGATIVE QUAL (NEGATIVE); UDS - THC POSITIVE QUAL (NEGATIVE)
[2018-04-03 06:16] LABS: APPEARANCE HAZY (CLEAR); BILIRUBIN NEGATIVE (NEGATIVE); COLOR YELLOW (YELLOW); GLUCOSE 1000 mg/dL (NEGATIVE); KETONE NEGATIVE (NEGATIVE); NITRITE NEGATIVE (NEGATIVE); PROTEIN NEGATIVE (NEGATIVE); SPECIFIC GRAVITY 1.015 (1.005-1.020); UROBILINOGEN NORMAL (NORMAL)
[2018-04-03 06:17] LABS: EPITHELIAL CELLS 0-5 /hpf (0-5); WHITE CELLS - URINE 0-5 /hpf (0-5)
[2018-04-03 08:05] LABS: CKMB 2.3 U/L (0.0-3.6); CREATINE KINASE 127 UL (21-215); TROPONIN-I 3.486 ng/mL (0.000-0.060)
[2018-04-03 10:26] LABS: HEMATOCRIT 34.3 % (36.0-48.0); HEMOGLOBIN 11.2 g/dL (12-16); MCH 26.7 pg (26.0-34.0); MCHC 32.7 g/dL (31.0-37.0); MCV 81.9 fL (80.0-100.0); MEAN PLATELET VOLUME 9.8 fL (7.4-10.4); RBC 4.19 10x6/uL (4.00-5.40); RDW 13.9 % (11.5-14.5); WBC 5.5 10x3/uL (4.8-10.8)
[2018-04-03] MEDS ORDERED: PLAVIX75 MG PO (10:28)
[2018-04-03 10:47] LABS: APTT 27.3 SECONDS (22.8-39.4); INR 1.04 (0.85-1.17); PROTIME 13.1 SECONDS (11.6-15.0)
[2018-04-03 11:38] LABS: BASOPHILS 0.4 % (0-2); EOSINOPHILS 1.8 % (0-7); HEMATOCRIT 34.2 % (36.0-48.0); HEMOGLOBIN 11.2 g/dL (12-16); LYMPHOCYTES 51.3 % (15-50); MCHC 32.7 g/dL (31.0-37.0); MCV 82.4 fL (80.0-100.0); MEAN PLATELET VOLUME 10.5 fL (7.4-10.4); MONOCYTES 8.6 % (2-11); NEUTROPHILS 37.9 % (40-80); PLATELET COUNT 353 10x3/uL (130-400); RBC 4.15 10x6/uL (4.00-5.40); RDW 14.1 % (11.5-14.5); WBC 5.6 10x3/uL (4.8-10.8)
[2018-04-03 11:42] LABS: ANION GAP 15.3 mmol/L (8-16); CALCIUM 9.1 mg/dL (8.5-10.1); CARBON DIOXIDE 26.3 mmol/L (21.0-32.0); CREATININE - SERUM 1.1 mg/dL (0.6-1.3); POTASSIUM - SERUM 3.6 mmol/L (3.5-5.1)
[2018-04-03 14:39] LABS: CREATINE KINASE 108 UL (21-215)
[2018-04-03 14:41] LABS: TROPONIN-I 2.928 ng/mL (0.000-0.060)
[2018-04-03 19:22] LABS: CKMB 2.2 U/L (0.0-3.6); CREATINE KINASE 129 UL (21-215)
[2018-04-03 19:27] LABS: TROPONIN-I 2.861 ng/mL (0.000-0.060)
[2018-04-04] VITALS (23 sets, daily range): BP systolic 93–159; BP diastolic 61–91; Ht 160 cm; Wt 71.0 kg
[2018-04-04 00:11] LABS: HEMATOCRIT 35.5 % (36.0-48.0); HEMOGLOBIN 11.8 g/dL (12-16); MCH 27.2 pg (26.0-34.0); MCHC 33.2 g/dL (31.0-37.0); MCV 81.8 fL (80.0-100.0); MEAN PLATELET VOLUME 9.9 fL (7.4-10.4); RBC 4.34 10x6/uL (4.00-5.40); RDW 13.2 % (11.5-14.5); WBC 6.2 10x3/uL (4.8-10.8)
[2018-04-04 06:09] LABS: BASOPHILS 0.2 % (0-2); EOSINOPHILS 1.8 % (0-7); HEMATOCRIT 37.6 % (36.0-48.0); HEMOGLOBIN 12.2 g/dL (12-16); IMMATURE GRANULOCYTES 0.3 % (0-5); LYMPHOCYTES 48.3 % (15-50); MCHC 32.4 g/dL (31.0-37.0); MCV 83.2 fL (80.0-100.0); MEAN PLATELET VOLUME 9.9 fL (7.4-10.4); MONOCYTES 7.1 % (2-11); NEUTROPHILS 42.3 % (40-80); PLATELET COUNT 322 10x3/uL (130-400); RBC 4.52 10x6/uL (4.00-5.40); WBC 6.1 10x3/uL (4.8-10.8)
[2018-04-04 07:45] LABS: ANION GAP 15.6 mmol/L (8-16); CALCIUM 8.9 mg/dL (8.5-10.1); CARBON DIOXIDE 26.9 mmol/L (21.0-32.0); MAGNESIUM - SERUM 1.6 mg/dL (1.8-2.4); POTASSIUM - SERUM 3.5 mmol/L (3.5-5.1)
[2018-04-04 15:16] LABS: APPEARANCE CLOUDY (CLEAR); COLOR YELLOW (YELLOW); NITRITE NEGATIVE (NEGATIVE); PROTEIN TRACE mg/dL (NEGATIVE)
[2018-04-04 15:17] LABS: BILIRUBIN NEGATIVE (NEGATIVE); GLUCOSE 250 mg/dL (NEGATIVE); KETONE NEGATIVE (NEGATIVE); UROBILINOGEN NORMAL (NORMAL)
[2018-04-04 15:18] LABS: AMORPHOUS SEDIMENT <1+ /lpf (NONE SEEN); BACTERIA MANY /hpf (NONE SEEN); EPITHELIAL CELLS 0-5 /hpf (0-5); HYALINE CAST 0-5 /lpf (NONE SEEN); MUCUS <1+ /lpf (NONE SEEN); RED CELLS - URINE 25-50 /hpf (0-5)
[2018-04-05] VITALS (11 sets, daily range): BP systolic 88–154; BP diastolic 63–91
[2018-04-05 00:42] LABS: HEMATOCRIT 34.5 % (36.0-48.0); HEMOGLOBIN 11.4 g/dL (12-16); MCH 26.8 pg (26.0-34.0); MCV 81.2 fL (80.0-100.0); MEAN PLATELET VOLUME 10.2 fL (7.4-10.4); RBC 4.25 10x6/uL (4.00-5.40); RDW 13.7 % (11.5-14.5); WBC 5.8 10x3/uL (4.8-10.8)
[2018-04-05 04:40] LABS: BASOPHILS 0 % (0-2); EOSINOPHILS 0 % (0-7); HEMATOCRIT 35.1 % (36.0-48.0); HEMOGLOBIN 11.8 g/dL (12-16); IMMATURE GRANULOCYTES 0.1 % (0-5); LYMPHOCYTES 18.5 % (15-50); MCH 27.1 pg (26.0-34.0); MCHC 33.6 g/dL (31.0-37.0); MCV 80.7 fL (80.0-100.0); MEAN PLATELET VOLUME 10.6 fL (7.4-10.4); NEUTROPHILS 80.4 % (40-80); PLATELET COUNT 337 10x3/uL (130-400); RBC 4.35 10x6/uL (4.00-5.40); RDW 13.6 % (11.5-14.5); WBC 6.8 10x3/uL (4.8-10.8)
[2018-04-05 04:53] LABS: ANION GAP 14.1 mmol/L (8-16); CALCIUM 9.3 mg/dL (8.5-10.1); CARBON DIOXIDE 26.7 mmol/L (21.0-32.0); CREATININE - SERUM 1.1 mg/dL (0.6-1.3); POTASSIUM - SERUM 3.8 mmol/L (3.5-5.1)
[2018-04-05] MEDS ORDERED: LEVAQUIN250 MG PO (10:36)
== END 2018-04-05 13:53 | disposition home or self-care (01) | DRG 281 ==
LOC: D.ER 03:56 → D.CVICU 07:12 → D.EDHOLD 07:12 → D.CVICU 08:13
PROVIDERS: Family Medicine; Internal Medicine Cardiovascular Disease
PROC: B2131ZZ Fluoroscopy of Multiple Coronary Artery Bypass Grafts using Low Osmolar Contrast (ICD-10-PCS; principal; 2018-04-05 07:00)
PROC: B2151ZZ Fluoroscopy of Left Heart using Low Osmolar Contrast (ICD-10-PCS; 2018-04-05 07:00)
DX: I97.190 Other postprocedural cardiac functional disturbances following cardiac surgery (principal); I21.4 Non-ST elevation (NSTEMI) myocardial infarction; N39.0 Urinary tract infection, site not specified; I16.9 Hypertensive crisis, unspecified; T82.857A Stenosis of other cardiac prosthetic devices, implants and grafts, initial encounter; E10.65 Type 1 diabetes mellitus with hyperglycemia; G89.29 Other chronic pain; R31.9 Hematuria, unspecified; Z95.1 Presence of aortocoronary bypass graft; I10 Essential (primary) hypertension; J45.909 Unspecified asthma, uncomplicated; I25.10 Atherosclerotic heart disease of native coronary artery without angina pectoris

== ENCOUNTER → 2018-05-01 16:44 | Outpatient (CLI) | payer MEDICAID ==
[2018-04-04 12:16] VITALS: BMI 26.9
[~2018-05-01 16:44] MED LIST changes: +KEPPRA250 MG PO; +LEVAQUIN250 MG PO; +LEVAQUIN750 MG PO; +PLAVIX75 MG PO; +TAMIFLU75 MG PO; +ZITHROMAX250 MG PO
== END | disposition home or self-care (01) ==
LOC: D.MAMMO 14:30
DX: Z12.31 Encounter for screening mammogram for malignant neoplasm of breast (principal)

== ENCOUNTER 2018-05-08 05:50 | Inpatient (IN) | payer MEDICAID ==
[~2018-05-08] VITALS: Ht 160 cm; Wt 66.2 kg
[~2018-05-08 05:50] MED LIST changes: -KEPPRA250 MG PO; -LEVAQUIN750 MG PO; -TAMIFLU75 MG PO; -ZITHROMAX250 MG PO
[2018-05-08 07:00] VITALS: BP 126/66
[2018-05-08 07:03] LABS: ALBUMIN 3.1 g/dL (3.4-5.0); ALKALINE PHOSPHATASE 106 U/L (46-116); ALT (SGPT) 15 U/L (10-68); BILIRUBIN - TOTAL 0.22 mg/dL (0.2-1.3); CALC OSMOLALITY 275 mosm/kg (275-300); CALCIUM 8.6 mg/dL (8.5-10.1); CARBON DIOXIDE 25.8 mmol/L (21.0-32.0); CHLORIDE - SERUM 100 mmol/L (98-107); CREATININE - SERUM 1.1 mg/dL (0.6-1.3); GLUCOSE 197 mg/dL (74-106); POTASSIUM - SERUM 3.5 mmol/L (3.5-5.1); PROTEIN - SERUM 7.2 g/dL (6.4-8.2); SODIUM 136 mmol/L (136-145); UREA NITROGEN 10 mg/dL (7-18); eGFR NON AFRICAN AMERICAN 57 mL/min (90-120)
[2018-05-08 07:14] LABS: CREATINE KINASE 52 UL (21-215); PRO BNP 4187 pg/mL (0-125); TROPONIN-I < 0.017 ng/mL (0.000-0.060)
--- NOTE | 2018-05-08 07:21 | NUR ---
REPORT GIVEN TO DAREK HERRING
[2018-05-08 07:48] LABS: BASOPHILS 0.2 % (0-2); EOSINOPHILS 0.8 % (0-7); HEMOGLOBIN 10.1 g/dL (12-16); IMMATURE GRANULOCYTES 0.2 % (0-5); LYMPHOCYTES 11.9 % (15-50); MCH 26.4 pg (26.0-34.0); MCHC 31.6 g/dL (31.0-37.0); MCV 83.8 fL (80.0-100.0); MEAN PLATELET VOLUME 9.6 fL (7.4-10.4); MONOCYTES 11.1 % (2-11); NEUTROPHILS 75.8 % (40-80); PLATELET COUNT 243 10x3/uL (130-400); RBC 3.82 10x6/uL (4.00-5.40); RDW 13.9 % (11.5-14.5); WBC 5.2 10x3/uL (4.8-10.8)
[2018-05-08 09:18] LABS: APPEARANCE SL CLDY (CLEAR); BACTERIA FEW /hpf (NONE SEEN); BILIRUBIN NEGATIVE (NEGATIVE); COLOR YELLOW (YELLOW); EPITHELIAL CELLS 0-5 /hpf (0-5); GLUCOSE 50 mg/dL (NEGATIVE); KETONE NEGATIVE (NEGATIVE); NITRITE NEGATIVE (NEGATIVE); PROTEIN TRACE mg/dL (NEGATIVE); RED CELLS - URINE 0-5 /hpf (0-5); UROBILINOGEN NORMAL (NORMAL); WHITE CELLS - URINE 25-50 /hpf (0-5)
[2018-05-08 09:19] LABS: GRANULAR CAST RARE /lpf (NONE SEEN)
[2018-05-08 10:00] VITALS: BP 97/41
--- NOTE | 2018-05-08 10:14 | NUR ---
PT STABLE, RESTING IN ROOM, PT REQUESTING PAIN MEDICATION. RATES PAIN 8/10. DENIES OTHER NEEDS, WILL CONTINUE TO MONITOR.
--- NOTE | 2018-05-08 10:54 | NUR ---
NEW IV START AT THIS TIME. 20 GA LEFT UPPER ARM. MEDICATIONS RESTARTED AT THIS TIME.
--- NOTE | 2018-05-08 12:11 | NUR ---
PT STABLE, CALL LIGHT WITHIN REACH, LUNCH TRAY PROVIDED, DENIES NEEDS, WILL CONTINUE TO MONITOR.
[2018-05-08 12:12] VITALS: BP 100/61
--- NOTE | 2018-05-08 13:27 | NUR ---
FSBS [address] FOR SCAN AT THIS TIME.
[2018-05-08 13:31] VITALS: BP 137/86
[2018-05-08 13:52] LABS: % SATURATION 6 % (15-55); IRON 19 ug/dl (35-150); TOTAL IRON BIND CAPACITY 290 ug/dl (260-445); UNSAT IRON BIND CAPACITY 271 ug/dl (150-375)
--- NOTE | 2018-05-08 15:20 | NUR ---
ARRIVE TO ROOM VIA STRETCHER FROM ER. ALERT AND ORIENTED X4. AMBULATES TO BED FROM STRETCHER. GAIT STEADY. LT UPPER ARM IV INFUSING LEVAQUIN. UNABLE TO PROVIDE PCP INFORMATION OTHER THAN "IT'S A NEW CLINIC IN [place]." REFUSE SCDs. MED REC COMPLETE. PATIENT STATES, "I THINK THERE IS MORE BUT I'M NOT SURE. I DON'T HAVE A LIST." DENIES ANY NEEDS. CONTINUE ADMISSION PROCESS. SINUS RHYTHM ON TELEMETRY.
[2018-05-08] MEDS ORDERED: KEPPRA250 MG PO (15:35)
[2018-05-08 15:52] VITALS: BP 119/74; BMI 23.0
[2018-05-08 16:02] LABS: UDS - AMPHET NEGATIVE QUAL (NEGATIVE); UDS - BARB NEGATIVE QUAL (NEGATIVE); UDS - BENZO NEGATIVE QUAL (NEGATIVE); UDS - COCAINE NEGATIVE QUAL (NEGATIVE); UDS - OPIATE POSITIVE QUAL (NEGATIVE); UDS - PCP NEGATIVE QUAL (NEGATIVE); UDS - THC POSITIVE QUAL (NEGATIVE)
--- NOTE | 2018-05-08 19:49 | NUR ---
RESUMING PATIENT CARE. PATIENT IS ALERT AND ORIENTED, RESTING COMFORTABLY IN BED. RESPIRATIONS ARE EVEN AND UNLABORED. NO S/S OF DISTRESS. NO C/O PAIN. CALL LIGHT WITHIN REACH. WILL CPOC.
[2018-05-08 21:03] VITALS: BP 100/50
[2018-05-09 00:31] VITALS: BP 107/57
[2018-05-09 06:10] LABS: HEMATOCRIT 32.7 % (36.0-48.0); HEMOGLOBIN 10.4 g/dL (12-16); MCH 26.4 pg (26.0-34.0); MCHC 31.8 g/dL (31.0-37.0); MEAN PLATELET VOLUME 10.2 fL (7.4-10.4); PLATELET COUNT 232 10x3/uL (130-400); RBC 3.94 10x6/uL (4.00-5.40); RDW 13.9 % (11.5-14.5)
[2018-05-09 06:17] VITALS: BP 92/50
[2018-05-09 06:19] LABS: ANION GAP 12.7 mmol/L (8-16); CALCIUM 8.1 mg/dL (8.5-10.1); CARBON DIOXIDE 27.6 mmol/L (21.0-32.0); CREATININE - SERUM 1.3 mg/dL (0.6-1.3); POTASSIUM - SERUM 3.3 mmol/L (3.5-5.1)
[2018-05-09 06:34] LABS: WBC 2.3 10x3/uL (4.8-10.8)
--- NOTE | 2018-05-09 07:54 | NUR ---
ROUNDING DONE WITH PATIENT BEING IN DROPLET ISOLATION FOR FLU. NIGHT NURSE WAS UNABLE TO GET IV ACCESS. I CALLED AND SPOKE WITH KAROL GALEAS RN VASCULAR ACCESS NURSE AND SHE WILL ATTEMPT. ON HEART MONITOR SHOWING SR, HR 84. ON EP, K+ IS 3.3. IN REPORT, PATIENT DOES NOT WANT TO TAKE ORAL K+.
[2018-05-09 08:01] LABS: ANISOCYTOSIS OCC; EOSINOPHILS 3 % (0-7); HYPOCHROMASIA OCC; LYMPHOCYTES 25 % (15-50); MONOCYTES 16 % (2-11); NEUTROPHILS 55 % (40-80); PLATELET ESTIMATE NORMAL
--- NOTE | 2018-05-09 08:27 | NUR ---
IV TO RIGHT HAND PER KAROL GALEAS RN WITH 22 G. IV FLUIDS RESTARTED AT 25 CC/HR. PATIENT IS COMPLAINING THAT IT HURTS. SHE REFUSES TO HAVE ANY FLUIDS THAN THOUGH THERE AND SO I TOLD HER THAT SHE NEEDED TO DRINK PLENTY OF FLUIDS TODAY. WILL CALL THE DOCTOR TO SEE IF WE CAN SWITCH TO ORAL MEDS.
[2018-05-09 08:35] VITALS: BP 102/60
[2018-05-09 09:19] LABS: FOLATE (FOLIC ACID) - SERUM 12.4 ng/mL (>3.0)
--- NOTE | 2018-05-09 09:31 | NUR ---
I CALLED AND TALKED TO PARUL STATON APN TO SEE ABOUT SWITCHING HER IV ANTI. TO ORAL. I CALLED MARLI IN PHARMACY TO LET HIM KNOW THE CHANGE.
--- NOTE | 2018-05-09 10:26 | NUR ---
PER PARUL STATON APN MAKING ROUNDS, PATIENT HAS FLU LIKE SYMPTOMS, NOT THE FLU SO SHE CAN BE OUT OF ISOLATION.
--- NOTE | 2018-05-09 10:48 | NUR ---
ZOFRAN GIVEN FOR NAUSEA DISCOMFORT. PATIENT IS WANTING PAIN MEDICATION BUT IT IS NOT TIME FOR IT. WILL CONTINUE TO MONITOR.
--- NOTE | 2018-05-09 10:57 | NUR ---
TO NM VIA WHEELCHIAR.
--- NOTE | 2018-05-09 12:23 | NUR ---
PATIENT TO STATE THAT SHE IS HAVING CHEST PAIN. VSS 110/68, SR 75 ON MONITOR. NO CHANGES. THERE IS NO NITRO IN OMNICELL. I TALKED TO ALISSON IN PHARMACY.
--- NOTE | 2018-05-09 12:38 | NUR ---
PATIENT TO STATE THAT PATIENT IS FEELING MUCH BETTER NOW FROM THE CHEST PAIN.
--- NOTE | 2018-05-09 13:42 | NUR ---
7514-UX-RROT OF POTASSIUM IS 3.8.
[2018-05-09 13:57] VITALS: Ht 160 cm; Wt 66.2 kg
[2018-05-09 15:51] VITALS: BP 107/62
[2018-05-09] MEDS ORDERED: LEVAQUIN750 MG PO (16:13)
[2018-05-09] MEDS ORDERED: ZITHROMAX250 MG PO (16:13)
[2018-05-09] MEDS ORDERED: TAMIFLU75 MG PO (16:13)
--- NOTE | 2018-05-09 17:00 | NUR ---
PATIENT HAS HER SLOTS FILLED ALREADY UNTIL THE FIRST OF THE MONTH. SHE IS GOING TO HAVE TO SPEND THE NIGHT PER ASHKAN WITH CM. THIS IS RELAYED TO THE PATIENT.
--- NOTE | 2018-05-09 18:01 | MORECARE ---
CASE MANAGEMENT DISCHARGE SUMMARY PATIENT: SHARON BELTRE UNIT: [id number] ADM DATE: 05/08/18 AGE: 42 : 71 SEX: F ROOM/BED: D.2130 AUTHOR: MARISA SUMMERS PHYSICIAN: REFERRING PHYSICIAN: HARSHA ROSENBAUM MD DATE OF SERVICE: 05/09/18 Discharge Plan Patient Name: SHARON BELTRE [facility] [facility] 1975 Planned Disposition: Home Anticipated Discharge Date: 05/10/18 Discharge Date: Expected LOS: 2 Initial Reviewer: [email or web address] Initial Review Date: 05/09/2018 Generated: 05/09/18 7:00 pm DCPIA - Discharge Planning Initial Assessment Updated by [email or web address]: Elo Delgado on 05/09/18 6:01 pm * Is the patient Alert and Oriented? Yes * How many steps to enter\exit or inside your home? 10 * PCP Betzaida Mendez * Pharmacy [facility] * Preadmission Environment Home with Family * ADLs Independent * Equipment Cane Glucometer * List name and contact numbers for known caregivers / representatives who currently or will assist patient after discharge: Angelica Beltre, daughter, * Verbal permission to speak to the caregivers and representatives has been obtained from the patient. N/A * Community resources currently utilized None * Additional services required to return to the preadmission environment? No * Can the patient safely return to the preadmission environment? Yes * Has this patient been hospitalized within the prior 30 days at any hospital? Yes Patient Name: SHARON BELTRE Page 03267 at 1801 All edits/amendments must be made on the electronic document DICTATION DATE: 05/09/18 1800 PROOFREADER: EMILY 05/09/18 1800 RPT#: [id number] DC DATE: STATUS: ADM IN [facility] [address] [place] [address] END OF REPORT
--- NOTE | 2018-05-09 18:20 | MORECARE ---
CASE MANAGEMENT DISCHARGE SUMMARY PATIENT: SHARON BELTRE UNIT: [id number] ADM DATE: 05/08/18 AGE: 42 : 71 SEX: F ROOM/BED: D.2130 AUTHOR: KRISTOPHERDOC PHYSICIAN: REFERRING PHYSICIAN: HARSHA COTO MD DATE OF SERVICE: 05/09/18 Discharge Plan Patient Name: SHARON BELTRE [facility] [facility] 1975 Planned Disposition: Home Anticipated Discharge Date: 05/10/18 Discharge Date: Expected LOS: 2 Initial Reviewer: [email or web address] Initial Review Date: 05/09/2018 Generated: 05/09/18 7:20 pm Comments DCP- Discharge Planning Updated by [email or web address]: Elo Delgado on 05/09/18 5:[address] Patient Name: SHARON BELTRE Admission Status: ER Accout number: [id number] Admission Date: 05-08-2018 : 1975 Admission Diagnosis: Attending: HARSHA COTO Current LOS: 1 Anticipated DC Date: 05-10-2018 Planned Disposition: Home Primary Insurance: MEDICAID [place] Discharge Planning Comments: CM notified that patient is ready for discharge. CM met with patient about discharge plans / needs. Patient states she can not afford her new medications. States she has 18 home meds and only 6 Medicaid slots. States she was recently approved for disability and will be able to get her medications filled through her Medicare ([employer]?). CM was not able to procure antibiotics through the community pharmacy at this late hour because the pharmacy is closed. Informed patient of this, but patient states she has already called her daughter to come pick her up and doesn't know if her daughter will be able to pick her up tomorrow. CM obtained written prescriptions from Dr. Coto for Tamiflu, Zithromax, and Levaquin. Instructed patient that if her family could take the written prescriptions to [facility] tomorrow, CM will have arranged for those medications to be charged to the hospital. Patient verbalized understanding. Patient requested CM to obtain more Nitro tablets for her. CM explained that pharmacy is showing that patient has already gotten 180 nitro tablets filled this month. Patient's nurse present in room during interview asked patient why she takes Nitro so often. Patient states she takes it for shortness of breath. CM and nurse explained to patient that is not the indicated reason to take Nitro. Patient verbalized understanding. CM informed Dr. Coto of this. CM will continue to follow and assist as needed with discharge planning / needs. Land Surveying Survey Worker: Elo Delgado DCPIA - Discharge Planning Initial Assessment Updated by [email or web address]: Elo Delgado on 05/09/18 6:01 pm * Is the patient Alert and Oriented? Yes * How many steps to enter\exit or inside your home? 10 * PCP Betzaida Mendez * Pharmacy [facility] * Preadmission Environment Home with Family * ADLs Independent * Equipment Cane Glucometer * List name and contact numbers for known caregivers / representatives who currently or will assist patient after discharge: Angelica Beltre, daughter, * Verbal permission to speak to the caregivers and representatives has been obtained from the patient. N/A * Community resources currently utilized None * Additional services required to return to the preadmission environment? No * Can the patient safely return to the preadmission environment? Yes * Has this patient been hospitalized within the prior 30 days at any hospital? Yes Last DP export: 05/09/18 5:00 p Patient Name: SHARON BELTRE Page [id number] at 1820 All edits/amendments must be made on the electronic document DICTATION DATE: 05/09/181819 STATE EPIDEMIOLOGIST: EMILY 05/09/181819 RPT#: [id number] DC DATE: STATUS: ADM IN [facility] [address] [place] [address] END OF REPORT
--- NOTE | 2018-05-09 18:41 | NUR ---
VERBAL AND WRITTEN DISCHARGE INSTRCUTIONS GIVEN TO PATIENT. PER PRINCESS WILLOUGHBY RN I AM TO GIVE ANOTHER TAMIFLU NOW UPON DISCHARGE. PATIENT ASKED IF ANYTHING ELSE WAS DUE, I.E. INSULIN. I TOLD HER THAT I HAD ALREADY GIVEN IT TO HER. SALINE LOCK REMOVED WITH CATH TIP INTACT. DISCHARGED HOME WITH WRITTEN SCRIPTS FOR ZITHROMAX, TAMIFLU, AND LEVAQUIN.
--- NOTE | 2018-05-10 08:09 | MORECARE ---
CASE MANAGEMENT DISCHARGE SUMMARY PATIENT: SHARON BELTRE UNIT: [id number] ADM DATE: 05/08/18 AGE: 42 : 71 SEX: F ROOM/BED: D.2130 AUTHOR: KRISTOPHER,DOC PHYSICIAN: REFERRING PHYSICIAN: HARSHA COTO MD DATE OF SERVICE: 05/10/18 Discharge Plan Patient Name: SHARON BELTRE Facility[facility] : 1975 Planned Disposition: Home Anticipated Discharge Date: 05/10/18 Discharge Date: 05/09/2018 Expected LOS: 2 Initial Reviewer: [email or web address] Initial Review Date: 05/09/2018 Generated: 05/10/18 9:09 am Comments DCP- Discharge Planning Updated by [email or web address]: Elo Delgado on 05/09/18 5:[address] Patient Name: SHARON BELTRE Admission Status: ER Accout number: [id number] Admission Date: 05-08-2018 : 1975 Admission Diagnosis: Attending: HARSHA COTO Current LOS: 1 Anticipated DC Date: 05-10-2018 Planned Disposition: Home Primary Insurance: MEDICAID [place] Discharge Planning Comments: CM notified that patient is ready for discharge. CM met with patient about discharge plans / needs. Patient states she can not afford her new medications. States she has 18 home meds and only 6 Medicaid slots. States she was recently approved for disability and will be able to get her medications filled through her Medicare ([employer]?). CM was not able to procure antibiotics through the community pharmacy at this late hour because the pharmacy is closed. Informed patient of this, but patient states she has already called her daughter to come pick her up and doesn't know if her daughter will be able to pick her up tomorrow. CM obtained written prescriptions from Dr. Coto for Tamiflu, Zithromax, and Levaquin. Instructed patient that if her family could take the written prescriptions to [facility] tomorrow, CM will have arranged for those medications to be charged to the hospital. Patient verbalized understanding. Patient requested CM to obtain more Nitro tablets for her. CM explained that pharmacy is showing that patient has already gotten 180 nitro tablets filled this month. Patient's nurse present in room during interview asked patient why she takes Nitro so often. Patient states she takes it for shortness of breath. CM and nurse explained to patient that is not the indicated reason to take Nitro. Patient verbalized understanding. CM informed Dr. Coto of this. CM will continue to follow and assist as needed with discharge planning / needs. Industrial Analyst: Elo Delgado DCPIA - Discharge Planning Initial Assessment Updated by [email or web address]: Elo Delgado on 05/09/18 6:01 pm * Is the patient Alert and Oriented? Yes * How many steps to enter\exit or inside your home? 10 * PCP Betzaida Mendez * Pharmacy [facility] * Preadmission Environment Home with Family * ADLs Independent * Equipment Cane Glucometer * List name and contact numbers for known caregivers / representatives who currently or will assist patient after discharge: Angelica Beltre, daughter, * Verbal permission to speak to the caregivers and representatives has been obtained from the patient. N/A * Community resources currently utilized None * Additional services required to return to the preadmission environment? No * Can the patient safely return to the preadmission environment? Yes * Has this patient been hospitalized within the prior 30 days at any hospital? Yes Last DP export: 05/09/18 5:20 p Patient Name: SHARON BELTRE Page 61614 at 0809 All edits/amendments must be made on the electronic document DICTATION DATE: 05/10/18807 RACE AND SPORTS BOOK WRITER: EMILY 05/10/18807 RPT#: [id number] DC DATE:05/09/18 STATUS: DIS IN [facility] [address] [place] [address] END OF REPORT
--- NOTE | 2018-05-11 12:11 | EC ---
PATIENT:SHARON APONTE DATE OF SERVICE: 05/08/18 SEX: F MEDICAL RECORD: [id number] DATE OF : [birth year] LOCATION:D. D.213 AGE OF PATIENT: 42 ADMISSION DATE: 05/08/18 REFERRING PHYSICIAN: INTERPRETING PHYSICIAN: TRACIE ELLINGTON MD ECHOCARDIOGRAM REPORT ECHO CHARGES 5 ECHO LIMITED Date: 05/08/18 1 DOPPLER ECHO COLOR FLOW CLINICAL DIAGNOSIS: CHF ECHOCARDIOGRAPHIC MEASUREMENTS (adult normal given) AC root (d.<3.7cm) cm LV Septum d (<1.2 cm> cm Valve Excursion cm LV Septum (systole) cm Left Atria (s.<4.0cm> cm LVPW d(<1.2cm) cm RV (d.<2.3cm) cm LVPW (sytole) cm LV diastole(<5.6CM) cm MV E-F(>70mm/sec) cm LV systole cm LVOT Diameter cm MV exc.(>10mm) cm Est.ejection fraction (50-75%) % DOPPLER: LVIT cm/sec A cm/sec E cm/sec LA cm/sec RVSP 32.0 mmHg LVOT cm/sec AOP1/2T m/s Asc. Ao cm/sec RVOT cm/sec RA cm/sec PA cm/sec AV Gradient Peak mmHg AV Mean mmHg AV Area cm MV Gradient Peak mmHg MV Mean mmHg MV Area cm COMMENTS: Leaf Conditioner Helper: Bonilla NOE Residential Energy Auditor: Vikki Ellington TAPE# PACS Pericardial Effusion N DATE OF SERVICE: 05/09/2018 ECHOCARDIOGRAM DATE OF SERVICE: 05/09/2018 FINDINGS: 1. Left ventricular chamber size is within normal limits. Left ventricular systolic function is normal. Overall ejection fraction estimated at 55% to 60%. 2. Left atrium, right atrium, and right ventricle chamber sizes are within ECHOCARDIOGRAM REPORT [id number] SHARON APONTE normal limits. 3. Valvular structures have normal structure and motion. 4. Doppler interrogation reveals only mild tricuspid regurgitation, no other valvular insufficiency or stenosis. 5. No evidence of pericardial effusion or left ventricular thrombus. TRANSINT:[id number] Voice Confirmation ID: [id number] DOCUMENT ID: [id number] TRACIE ELLINGTON MD at 1211 CC: [id number] DICTATION DATE: 05/09/18 1149 TRENCH DIGGING MACHINE OPERATOR: 05/09/18 1217 DIS IN 05/09/18 [facility] [address] [place] [address]
== END 2018-05-09 18:42 | disposition home or self-care (01) | DRG 865 ==
LOC: D.ER 05:50 → D.EDHOLD 09:02 → D.M2 09:02
PROVIDERS: Emergency Medicine; Family Medicine; ADMIT Internal Medicine Nephrology
DX: B34.9 Viral infection, unspecified (principal); I50.31 Acute diastolic (congestive) heart failure; J44.1 Chronic obstructive pulmonary disease with (acute) exacerbation; I25.110 Atherosclerotic heart disease of native coronary artery with unstable angina pectoris; A59.9 Trichomoniasis, unspecified; D50.9 Iron deficiency anemia, unspecified; E11.9 Type 2 diabetes mellitus without complications; I25.10 Atherosclerotic heart disease of native coronary artery without angina pectoris; G40.909 Epilepsy, unspecified, not intractable, without status epilepticus; F41.9 Anxiety disorder, unspecified; F32.9 Major depressive disorder, single episode, unspecified; E78.5 Hyperlipidemia, unspecified; A59.01 Trichomonal vulvovaginitis; Z86.73 Personal history of transient ischemic attack (TIA), and cerebral infarction without residual deficits; Z87.891 Personal history of nicotine dependence; I11.0 Hypertensive heart disease with heart failure

== ENCOUNTER 2018-12-04 21:03 | Inpatient (IN) | payer MEDICAID ==
[~2018-12-04] VITALS: Ht 160 cm; Wt 69.1 kg
--- NOTE | ~2018-12-04 | HEMODYNAMI ---
PATIENT:SHARON APONTE MEDICAL RECORD: [id number] : 71 LOCATION:[place] [address] ADMISSION DATE: 12/04/18 Generatedon:12/05/201811:53 Patient name: SHARON APONTE Patient #: [id number] SSN: [id number] : 1975 Date of study: 12/05/2018 Page: Of Hemodynamic Procedure Report Patient Data Patient Demographics Procedure consent was obtained First Name: SHARON Gender: Female Last Name: FADI : 1975 Patient #: [id number] Age: 42 year(s) Race: Black SSN: [id number] Additional ID: [id number] Contact details Address: [place] [address] State: [place] City: [place] Zip code: [address] Past Medical History Allergies Allergen Reaction Date Comments Reported Other allergy 12/05/2018 CONTRAST- ORAL AND IV. PCN Admission Admission Data Admission Date: 12/04/2018 Admission Time: 23:14 Room #: .[facility] Insurance Payor: Medicaid [facility] #: [id number] Height (in.): 62.99 BSA: 1.74 (m2) Height (cm.): 160 BMI: 27.73 (kg/m2) Weight (lbs.): 156.53 Weight (kg.): 71 Lab Results Lab Result Date: 12/05/2018 Lab Result Time: 0:00 Biochemistry Name Units Result Min Max BUN mg/dl 14 --(--*-)-- 7 18 Creatinine mg/dl 1.3 --(---*)-- 0.6 1.3 eGFR ml/min 57 *-(----)-- 90 120 AM CBC Name Units Result Min Max Hematocrit % 30.8 *-(----)-- 42 54 Hemoglobin g/dl 9.8 *-(----)-- 13.5 17.5 Procedure Procedure Types Cath Procedure Diagnostic Procedure LHC LHC w/Coronaries w/Grafts Sedation Charges Moderate Sedation up to 30 minutes PCI Procedure Coronary Stent Coronary Stent Initial Peripheral Cath Diagnostic Procedure Mail Machine Operator Peripheral Procedures Hkurl-Ynykivo-Scp-Off Peripheral vascular Intervention Stent Stent Iliac w/plasty Initial Stent w/plasty-Iliac Additional Procedure Description Procedure Date Procedure Date: 12/05/2018 Procedure Start Time: 10:57 Procedure End Time: 11:48 Procedure Staff Name Function Rickey Ellington MD Performing Physician Pastora Rebolledo RT Monitor Haydee Mello RT Scrub [place] Davis RT Scrub Rj Dahl RN Nurse Procedure Data Cath Procedure Fluoroscopy Diagnostic fluoroscopy Total fluoroscopy Time: time: 15.6 min 15.6 min Diagnostic fluoroscopy Total fluoroscopy dose: 533 dose: 533 mGy mGy Contrast Material Contrast Material Type Amount (ml) Isovue 300 266 Entry Location Entry Primary Successful Side Size Upsize Upsize Entry Closure Succes sful Closure Location (Fr) 1 (Fr) 2 (Fr) Remarks Device Remarks Femoral Right 5 Fr 6 Fr Exoseal artery Long Femoral Left 6 Fr Exoseal artery Long Estimated blood loss: 10 ml Diagnostic catheters Device Type Used For End Catheter Placement MULTIPACK Pigtail 5 Fr Procedure catheter MULTIPACK JL 4.0 5Fr Procedure catheter MULTIPACK 3DRC 5Fr Procedure catheter DIAGNOSTIC AR2 MOD 5 Fr Procedure catheter ([id number]) Procedure Complications No complications Procedure Medications Medication Administration Route Dosage 0.9% NaCl I.V. 100 ml/hr Oxygen etCO2 Nasal cannula 2 l/min Heparin Flush Bag added to field 2 bags (1000units/500ml NS) Lidocaine 2% added to field 20 Versed I.V. 0.5 mg Fentanyl I.V. 25 mcg Versed I.V. 1 mg Fentanyl I.V. 25 mcg Versed I.V. 1 mg Fentanyl I.V. 50 mcg Versed I.V. 1 mg Fentanyl I.V. 50 mcg Fentanyl I.V. 50 mcg Versed I.V. 1 mg Heparin Bolus I.V. 5000 units Plavix P.O. 600 mg Hemodynamics Rest BSA: 1.74 (m2) HGB: 9.8 (g/dl) O2 Consumption: Estimated: 175.3 (ml/min) O2 Cons umption indexed: Estimated:100.75 (ml/min/m) Heart Rate: 72 (bpm) Snapshots Pre Cath Intra NCS Post Cath Vital Signs Time Heart Resp SPO2 etCO2 NIBP (mmHg) Rhythm Pain Sedation Rate (ipm) (%) (mmHg) Status Level (bpm) 10:33:03 65 15 99 0 182/110(164) NSR 0 (11) 10(A) , No pain 10:37:23 59 18 99 41.4 169/100(144) NSR 0 (11) 10(A) , No pain 10:41:39 68 18 99 44.4 163/97(136) NSR 0 (11) 10(A) , No pain 10:45:53 69 15 97 42.9 149/94(127) NSR 0 (11) 10(A) , No pain 10:50:03 71 15 98 44.4 148/91(114) NSR 0 (11) 10(A) , No pain 10:54:13 69 15 98 46.6 165/91(129) NSR 0 (11) 10(A) , No pain 10:58:27 71 16 100 38.4 168/99(146) NSR 0 (11) 10(A) , No pain 11:02:43 75 11 98 39.1 181/119(165) NSR 0 (11) 10(A) , No pain 11:06:57 83 12 94 42.1 123/96(117) NSR 0 (11) 9(A) , No pain 11:10:56 88 12 90 42.1 135/96(117) NSR 0 (11) 9(A) , No pain 11:15:00 94 17 94 41.4 135/92(103) NSR 0 (11) 9(A) , No pain 11:19:08 86 17 96 46.6 123/80(103) NSR 0 (11) 9(A) , No pain 11:23:12 83 16 96 45.1 126/81(99) NSR 0 (11) 9(A) , No pain 11:27:18 84 16 96 47.4 125/77(107) NSR 0 (11) 9(A) , No pain 11:31:21 79 16 97 46.6 135/84(98) NSR 0 (11) 9(A) , No pain 11:35:25 82 17 98 46.6 130/91(113) NSR 0 (11) 9(A) , No pain 11:39:26 80 18 97 46.6 148/95(128) NSR 0 (11) 9(A) , No pain 11:43:34 94 16 98 47.4 158/101(126) NSR 0 (11) 9(A) , No pain 11:47:46 80 13 97 45.8 143/92(128) NSR 0 (11) 10(A) , No pain Medications Time Medication Route Dose Verified Delivered Reason Notes Effectiveness by by 10:38:58 0.9% NaCl I.V. 100 Rj Rj Per physician ml/hr Hesham Dahl RN RN 10:39:23 Oxygen etCO2 2 Rj Rj for low 02 sats Nasal l/min Hesham Dahl cannula RN RN 10:39:34 Heparin Flush added 2 Rj Rj used for Bag to bags Hesham Dahl procedure (1000units/500ml RN RN NS) 10:39:46 Lidocaine 2% added 20ml Rj Rj for local to vial Hesham Dahl anesthetic RN RN 10:51:54 Versed I.V. 0.5 Rj Rj for sedation mg Hesham Dahl RN RN 10:52:04 Fentanyl I.V. 25 Rj Rj for sedation mcg Hesham Dahl RN RN 10:58:29 Versed I.V. 1 mg Rj Rj for sedation Hesham Dahl RN RN 10:58:35 Fentanyl I.V. 25 Rj Rj for sedation mcg Hesham Dahl RN RN 10:59:37 Versed I.V. 1 mg Rj Rj for sedation Hesham Dahl RN RN 10:59:45 Fentanyl I.V. 50 Rj Rj for sedation mcg Hesham Dahl RN RN 11:02:06 Versed I.V. 1 mg Rj Rj for sedation Hesham Dahl RN RN 11:02:11 Fentanyl I.V. 50 Rj Rj for sedation mcg Hesham Dahl RN RN 11:02:39 Fentanyl I.V. 50 Rj Rj for sedation mcg Hesham Dahl RN RN 11:14:44 Versed I.V. 1 mg Rj Rj for sedation Hesham Dahl RN RN 11:14:56 Heparin Bolus I.V. 5000 Rj Rj for units Hesham Dahl anticoagulation RN RN 11:49:48 Plavix P.O. 600 Rj De La Rosa for mg Hesham Dahl antiplatelet RN RN therapy Procedure Log Time Note 9:53:51 Signed procedure consent form obtained from patient. 9:53:54 Procedure Status Urgent Heart Cath (IP). 9:53:55 Time tracking: Regular hours (M-F 7:00 - 5:00) 9:53:59 Plan of Care:Hemodynamics will remain stable., Cardiac rhythm will remain stable., Comfort level will be maintained., Respiratory function will remain adequate., Patient/ family verbilizes understanding of procedure., Procedure tolerated without complication., Recovers from procedure without complications.. 9:55:12 Lab Result : BUN 14 mg/dl 9:55:12 Lab Result : Creatinine 1.3 mg/dl 9:55:12 Lab Result : eGFR AM 57 ml/min 9:55:12 Lab Result : Hemoglobin 9.8 g/dl 9:55:12 Lab Result : Hematocrit 30.8 % 9:55:21 Patient Weight : 156.53 lbs 9:55:25 Patient Height : 62.99 inches 9:55:47 Insurance Payor : Medicaid 10:11:48 Rj Dahl RN sent for patient. Start room use. 10:23:44 Patient received from Med II to CCL 3 Alert and oriented. Tansferred to table in Supine position. 10:23:45 Warm blankets applied, and chanel hugger turned on for patient comfort. 10:23:45 Correct patient and procedure confirmed by team. 10:23:46 ECG and BP/O2 sat monitors applied to patient. 10:31:56 Vital chart was started 10:31:59 Baseline sample Acquired. 10:32:03 Rhythm: sinus rhythm 10:32:05 Full Disclosure recording started 10:32:06 Pre-procedure instructions explained to patient. 10:32:06 Pre-op teaching completed and patient verbalized understanding. 10:32:08 Family in patients room. 10:32:09 Patient NPO since Midnight. 10:32:27 Patient allergic to Other allergyCONTRAST- ORAL AND IV. PCN 10:32:29 Is patient on blood thinner?Yes 10:32:39 UNKNOWN LAST DOSE 10:32:41 Patient diabetic? Yes. 10:32:42 If diabetic: On Metformin? Yes 10:32:45 If on Metformin: Last Dose? 12/04/2018 10:32:49 Previous problem with sedation/anesthesia? No ? 10:32:49 Snore? Yes 10:32:50 Sleep apnea? No 10:32:51 Deviated septum? Yes 10:32:52 Opens mouth fully? Yes 10:32:53 Sticks out tongue? Yes 10:32:56 Airway obstruction? No ? 10:32:58 Dentures? No ? 10:33:00 Pre procedure: right dorsailis pedis pulse 1+ Palpable, but thready & weak; easily obliterated 10:33:10 IV patent on arrival in left IJ with 0.9% NaCl at [facility]. 10:33:13 Lab results completed and on chart. 10:33:17 Right groin area was prepped with chlora-prep and draped in sterile fashion 10:33:19 Alarms reviewed by R. N. 10:33:19 Sharps counted by scrub and verified by R.N. 10:33:26 Is the patient allergic to Iodine/contrast media? Yes. 10:33:27 Was the patient premedicated? Yes 10:38:58 0.9% NaCl 100 ml/hr I.V. was administered by Rj Dahl RN; Per physician; 10:39:23 Oxygen 2 l/min etCO2 Nasal cannula was administered by Rj Dahl RN; for low 02 sats; 10:39:34 Heparin Flush Bag (1000units/500ml NS) 2 bags added to field was administered by Rj Dahl RN; used for procedure; 10:39:46 Lidocaine 2% 20ml vial added to field was administered by Rj Dahl RN; for local anesthetic; 10:39:47 Use device set Femoral Dx 10:39:48 ACIST Syringe (32977) opened to sterile field. 10:39:48 Bag Decanter (2001S) opened to sterile field. 10:39:49 ACIST Hand Control (10236) opened to sterile field. 10:39:50 ACIST Manifold (36913) opened to sterile field. 10:39:51 Tegaderm 4 x 4 (1626W) opened to sterile field. 10:39:53 Medline Cath Pack ([id number]) opened to sterile field. 10:39:54 DIAGNOSTIC Multipack 5Fr catheter set (SU4420) opened to sterile field. 10:39:54 SHEATH 5FR [place] (MDR396) opened to sterile field. 10:39:55 EMERALD Guide Wire (384-844) opened to sterile field. 10:48:34 --------ALL STOP TIME OUT------ 10:48:35 Final Timeout: patient, procedure, and site verified with staff and physician. All members of the team are in agreement. 10:48:36 Right groin site verified by team. 10:48:39 Fire Safety Assessment: A--An alcohol-based skin anteseptic being used preoperatively., C--Open oxygen or nitrous oxide is being used., D--An ESU, laser, or fiber-optic light is being used. 10:48:51 3a) 45-59 Moderately reduced kidney function. 10:49:04 Maximum allowable contrast dose (3.7 X eGFR X 0.75)150 ml. 10:49:06 Physical assessment completed. ASA score P 3 - A patient with severe systemic disease as per Rickey Ellington MD. 10:49:09 Sedation plan: IV Moderate Sedation Medication:Versed, Fentanyl 10:49:15 Timer 1 started at 10:36 AM, stopped at 10:49 AM, duration 00:12:48 sec. 10:49:42 Zero performed for pressure channel P1 10:51:54 Versed 0.5 mg I.V. was administered by Rj Dahl RN; for sedation; 10:52:04 Fentanyl 25 mcg I.V. was administered by jR Dahl RN; for sedation; 10:57:25 Procedure started. 10:57:41 Local anesthetic to right femoral artery with Lidocaine 2% by Rickey Ellington MD.INITIAL ACCESS ONLY 10:58:29 Versed 1 mg I.V. was administered by Rj Dahl RN; for sedation; 10:58:35 Fentanyl 25 mcg I.V. was administered by Rj Dahl RN; for sedation; 10:59:37 Versed 1 mg I.V. was administered by Rj Dahl RN; for sedation; 10:59:45 Fentanyl 50 mcg I.V. was administered by Rj Dahl RN; for sedation; 11:02:06 Versed 1 mg I.V. was administered by Rj Dahl RN; for sedation; 11:02:11 Fentanyl 50 mcg I.V. was administered by Rj Dahl RN; for sedation; 11:02:39 Fentanyl 50 mcg I.V. was administered by Rj Dahl RN; for sedation; 11:04:05 A 5 Fr sheath was inserted into the Right Femoral artery 11:04:20 A MULTIPACK Pigtail 5 Fr catheter was advanced over the wire and used for Procedure. 11:05:48 GLIDE WIRE MERIT Angled 260cm ([id number]) opened to sterile field. 11:06:05 GLIDE WIRE USED TO ADVANCED CATHETER 11:06:45 LV gram done using SALVADOR 11:06:47 Injector settings: Ml/sec: 10, Volume: 20, 11:07:04 EF : 55 % 11:09:14 Abdominal angiogram w/ runoff was performed. 11:09:48 Left leg runoff performed. 11:10:09 Right leg runoff performed. 11:12:39 Catheter exchanged over wire. 11:13:14 SHEATH 6FR Brite Tip 35cm ([id number]) opened to sterile field. 11:13:18 INFLATOR Merit BasixCompak (VW2221) opened to sterile field. 11:13:23 SHEATH 6FR [place] (JRI820) opened to sterile field. 11:14:44 Versed 1 mg I.V. was administered by Rj Dahl RN; for sedation; 11:14:56 Heparin Bolus 5000 units I.V. was administered by Rj Dahl RN; for anticoagulation; 11:16:34 SHEATH 6FR Brite Tip 35cm ([id number]) opened to sterile field. 11:16:42 EMERALD Guide Wire (890-163) opened to sterile field. 11:16:55 Local anesthetic to left femerol artery with Lidocaine 2% by Rickey Ellington MD.ADDITIONAL ACCESS 11:18:03 A 6 Fr Long sheath was inserted into the Left Femoral artery 11:18:10 SHEATH 6FR [place] (CCV637) opened to sterile field. 11:19:10 Sheath upsized to a 6 Fr Long. 11:20:32 Procedure type changed to Cath procedure, Diagnostic procedure, LHC, LHC w/Coronaries w/Grafts, Sedation Charges, Moderate Sedation up to 30 minutes, PCI procedure, Coronary Stent, Coronary Stent Initial, Peripheral Cath Diagnostic Procedure, Mail Machine Operator Peripheral Procedures, Yrgvc-Oooeqwt-Nxq-Off, Peripheral vascular Intervention, Stent, Stent Iliac w/plasty Initial, Stent w/plasty-Iliac Additional 11:21:11 Place stent Inflation Number: 1 A SHEELA 6 x 18 x 135 stent ([id number]) was prepped and advanced across the Proximal Common Iliac, Right . The stent was deployed at 11 MARY for 0:00 (min:sec) . 11:21:51 Place stent Inflation Number: 1 A SHEELA 6 x 18 x 135 stent ([id number]) was prepped and advanced across the Proximal Common Iliac, Left . The stent was deployed at 11 MARY for 0:00 (min:sec) . 11:22:47 Inflation number: 2 The stent balloon was then re-inflated across the Proximal Common Iliac, Right to 15 MARY for 0:10 (min:sec) . 11:23:33 RIGHT Stent catheter was removed intact over wire. 11:23:37 LEFT Stent catheter was removed intact over wire. 11:24:59 LONG SHEATH ON THE RIGHT EXCHANGED FOR A SHORT 6F SHEATH 11:25:41 A MULTIPACK JL 4.0 5Fr catheter was advanced over the wire and used for Procedure. 11:26:22 LCA angiography performed. 11:27:07 Catheter exchanged over wire. 11:27:44 A MULTIPACK 3DRC 5Fr catheter was advanced over the wire and used for Procedure. 11:28:22 ZARAGOZA to LAD angiography performed. 11:29:03 Catheter exchanged over wire. 11:29:08 A DIAGNOSTIC AR2 MOD 5 Fr catheter ([id number]) was advanced over the wire and used for Procedure. 11:29:52 SVG to Circ occluded. 11:30:54 RCA angiography performed. 11:32:39 SVG to RCA angiography performed. 11:32:42 Catheter exchanged over wire. 11:33:01 CHOICE PT Extra Support 182cm wire ([id number]) opened to sterile field. 11:33:30 GUIDE 6FR AR 2.0 SH catheter ([id number]) opened to sterile field. 11:33:36 6 Fr AR 2 SH guide catheter was inserted over the wire 11:34:00 CHOICE ES 182 wire advanced. 11:34:17 Pre PCI Site: [place] [facility] has 90% stenosis. 11:36:38 WIRE REMOVED 11:36:43 Guide catheter removed. 11:36:54 GUIDE 6FR AR 1.0 catheter (LN8TH79) opened to sterile field. 11:37:03 6 Fr AR 1 guide catheter was inserted over the wire 11:39:07 Guide Catheter removed. unable to cannulate vessel. 11:39:28 GUIDE 6FR HS I catheter (LA6HSI) opened to sterile field. 11:39:41 6 Fr HS 1 guide catheter was inserted over the wire 11:40:57 ACT drawn and resulted at 281 seconds. (normal therapeutic range 180-240 seconds). 11:41:21 CHOICE ES 182 wire advanced. 11:41:38 Wire advanced across lesion. 11:42:37 Place stent Inflation Number: 1 A MAXI RX 2.5 x 15 stent ([id number]) was prepped and advanced across the 1st RPL 90. The stent was deployed at 13 MARY for 0:00 (min:sec) 0. 11:42:55 Stent catheter was removed intact over wire. 11:42:55 Wire removed. 11:42:56 Guide catheter removed. 11:43:28 LONG SHEATH ON THE LEFT EXCHANGED FOR A SHORT 6F 11:43:49 EXOSEAL 6Fr (EX600) opened to sterile field. 11:43:50 EXOSEAL 6Fr (EX600) opened to sterile field. 11:44:43 Sheath removed intact; hemostasis achieved with Exoseal to the Right Femoral artery. 11:44:50 Sheath removed intact; hemostasis achieved with Exoseal to the Left Femoral artery. 11:44:54 Procedure ended.(Physican Out) 11:46:04 Contrast amount:Isovue 300 266ml. 11:46:06 Maximum allowable dose exceeded? Yes. 11:46:10 Fluoroscopy time 15.60 minutes. 11:46:23 Fluoroscopy dose: 533 mGy 11:46:23 Flurop Dose total: 533 11:46:44 Post-op/insertion site Right Femoral artery dressed using a 4 x 4 and Tegaderm. 11:46:47 Post-op/insertion site Left Femoral artery dressed using a 4 x 4 and Tegaderm. 11:46:50 Post-procedure physical assessment completed. ASA score P 3 - A patient with severe systemic disease as per Rickey Ellington MD. 11:46:52 Post procedure rhythm: sinus rhythm 11:46:55 Estimated blood loss: 10 ml 11:46:56 Post procedure instruction explained to patient.Patient verbalizes understanding. 11:46:56 Patient needs reinforcement of post procedure teaching. 11:48:13 Procedure and supply charges have been captured, reviewed, submitted and are correct. 11:48:15 Procedure Complication : No complications 11:48:17 Vital chart was stopped 11:48:17 See physician's report for complete and final results. 11:48:20 Report given to PCU. 11:48:22 Patient transfered to PCU with Bed. 11:48:24 Procedure ended. 11:48:24 Full Disclosure recording stopped 11:48:30 End room use (Document Last) 11:49:48 Plavix 600 mg P.O. was administered by Rj Dahl RN; for antiplatelet therapy; Intervention Summary Intervention Notes Time ActionType Lesion and Equipment Used Action# Pressure Duration Attributes 11:21:11 Place stent Proximal SHEELA 6 x 18 1 11 00:00 Common x 135 stent Iliac, ([id number]) Right 11:21:51 Place stent Proximal SHEELA 6 x 18 1 11 00:00 Common x 135 stent Iliac, Left ([id number]) 11:22:47 Reinflate Proximal SHEELA 6 x 18 2 15 00:10 stent Common x 135 stent balloon Iliac, ([id number]) Right 11:42:37 Place stent 1st RPL MAXI RX 2.5 x 1 13 00:00 15 stent ([id number]) Device Usage Item Name Manufacture Quantity Catalog Number Hospital Part Current Minimal Lot# / Charge Number Stock Stock Serial# Code ACIST Syringe Acist 1 89498 771257 775093 [id number] 20 (19847) Medical [employer] Inc Bag Decanter Microtek 1 2001S 804430 58364 601699 5 (2001S) Medical Inc. ACIST Hand Acist 1 05400 155209 092042 894750 5 Control (73929) [employer] Systems Inc ACIST Manifold Acist 1 81498 002273 656434 592774 5 (09471) Medical Systems Inc Tegaderm 4 x 4 3M 1 1626W 781602 521232 792246 5 (1626W) Medline Cath Medline 1 [id number] 997157 68992 476310 5 Pack ([id number]) DIAGNOSTIC Cardinal 1 VJ0110 387307 88249 400059 30 Multipack 5Fr Health catheter set (NH2537) SHEATH 5FR Terumo 1 BYK515 679518 683087 359068 5 [place] (UHO668) EMERALD Guide Cardinal 2 502-455 014210 751722 870409 5 Wire (502-455) Health MULTIPACK Cardinal 1 026034 5 Pigtail 5 Fr Health catheter GLIDE WIRE Merit 1 [id number] 753331 787692 478235 5 MERIT Angled Medical 260cm ([id number]) SHEATH 6FR Cardinal 2 [id number] 671935 705218 545772 1 Brite Tip 35cm Health (037225X) INFLATOR Merit Merit 1 LS2518 962470 118745 022609 15 BasixCompak Medical (EI3755) SHEATH 6FR Terumo 2 KBZ850 841669 280928 944433 40 [place] (BXP859) SHEELA 6 x 18 Cardinal 2 [id number] 700597 34050 072640 5 x 135 stent [facility] ([id number]) MULTIPACK JL Cardinal 1 431710 5 4.0 5Fr Health catheter MULTIPACK 3DRC Cardinal 1 316406 5 5Fr catheter [facility] DIAGNOSTIC AR2 Cardinal 1 [id number] 935478 231686 520050 20 MOD 5 Fr Health catheter (648265Q) CHOICE PT Extra Currie 1 [id number] 716565 017697 235393 5 Support 182cm Scientific wire ([id number]) GUIDE 6FR AR Medtronic 1 [id number] 049148 41066 374446 1 2.0 SH catheter ([id number]) GUIDE 6FR AR Medtronic 1 [id number] 973118 92630 926344 1 1.0 catheter (XL7UG99) GUIDE 6FR HS I Medtronic 1 LA6HSI 237087 13079 783293 1 catheter (LA6HSI) MAXI RX 2.5 x Medtronic 1 [id number] 541576 1634173 129872 5 [id number] 15 stent ([id number]) EXOSEAL 6Fr Cardinal 2 EX600 431992 278754 681317 10 (EX600) Health Signature Audit [facility] Stage Time Signature Unsigned Intra-Procedure 12/05/2018 Pastora Rebolledo 11:52:56 AM RT(R) Signatures Performing Physician : Signature : Rickey Tauth MD Date : Time : Monitor : Pastora Reoblledo RT Signature : Date : Time : Nurse : Rj Lorigan RN Signature : Date : Time : [place] [address] [place] [address]
[2018-12-04 20:00] VITALS: BP 114/63
[~2018-12-04 21:03] MED LIST changes: +KEPPRA250 MG PO; +LEVAQUIN750 MG PO; +TAMIFLU75 MG PO; +ZITHROMAX250 MG PO
[2018-12-04 21:45] LABS: BASOPHILS 0.3 % (0-2); EOSINOPHILS 1.9 % (0-7); HEMATOCRIT 30.9 % (36.0-48.0); HEMOGLOBIN 10.1 g/dL (12-16); IMMATURE GRANULOCYTES 0.3 % (0-5); LYMPHOCYTES 40.2 % (15-50); MCH 26.6 pg (26.0-34.0); MCHC 32.7 g/dL (31.0-37.0); MCV 81.5 fL (80.0-100.0); MONOCYTES 12.8 % (2-11); NEUTROPHILS 44.5 % (40-80); PLATELET COUNT 204 10x3/uL (130-400); RBC 3.79 10x6/uL (4.00-5.40); RDW 14.9 % (11.5-14.5); WBC 3.8 10x3/uL (4.8-10.8)
[2018-12-04 21:56] VITALS: BP 197/102
[2018-12-04 22:03] LABS: APTT 25.2 SECONDS (22.8-39.4); INR 0.96 (0.85-1.17); PROTIME 12.3 SECONDS (11.6-15.0)
[2018-12-04 22:12] LABS: ALBUMIN 3.1 g/dL (3.4-5.0); ALKALINE PHOSPHATASE 125 U/L (46-116); ALT (SGPT) 22 U/L (10-68); BILIRUBIN - TOTAL 0.17 mg/dL (0.2-1.3); CALC OSMOLALITY 287 mosm/kg (275-300); CALCIUM 8.6 mg/dL (8.5-10.1); CARBON DIOXIDE 27.7 mmol/L (21.0-32.0); CHLORIDE - SERUM 103 mmol/L (98-107); CREATININE - SERUM 1.4 mg/dL (0.6-1.3); GLUCOSE 273 mg/dL (74-106); POTASSIUM - SERUM 3.9 mmol/L (3.5-5.1); SODIUM 139 mmol/L (136-145); UREA NITROGEN 13 mg/dL (7-18); eGFR NON AFRICAN AMERICAN 43 mL/min (90-120)
[2018-12-04 22:21] LABS: CKMB 0.2 U/L (0.0-3.6); CREATINE KINASE 72 UL (21-215); MAGNESIUM - SERUM 1.6 mg/dL (1.8-2.4)
[2018-12-04 22:23] LABS: TROPONIN-I < 0.017 ng/mL (0.000-0.060)
[2018-12-04 22:36] VITALS: BP 155/77
[2018-12-04 23:42] VITALS: BP 140/77
[2018-12-05 02:47] VITALS: BP 132/66; BMI 27.8
[2018-12-05 04:00] VITALS: BP 132/66
[2018-12-05 06:28] LABS: BASOPHILS 0.5 % (0-2); EOSINOPHILS 2.6 % (0-7); HEMATOCRIT 30.8 % (36.0-48.0); HEMOGLOBIN 9.8 g/dL (12-16); IMMATURE GRANULOCYTES 0.2 % (0-5); LYMPHOCYTES 47.5 % (15-50); MCH 26.1 pg (26.0-34.0); MCHC 31.8 g/dL (31.0-37.0); MCV 82.1 fL (80.0-100.0); MEAN PLATELET VOLUME 10.5 fL (7.4-10.4); MONOCYTES 11.1 % (2-11); NEUTROPHILS 38.1 % (40-80); PLATELET COUNT 215 10x3/uL (130-400); RBC 3.75 10x6/uL (4.00-5.40); RDW 15.1 % (11.5-14.5); WBC 4.3 10x3/uL (4.8-10.8)
[2018-12-05 06:56] LABS: ALBUMIN 2.9 g/dL (3.4-5.0); ALKALINE PHOSPHATASE 120 U/L (46-116); ALT (SGPT) 23 U/L (10-68); BILIRUBIN - TOTAL 0.19 mg/dL (0.2-1.3); CALC OSMOLALITY 286 mosm/kg (275-300); CALCIUM 8.5 mg/dL (8.5-10.1); CARBON DIOXIDE 29.6 mmol/L (21.0-32.0); CHLORIDE - SERUM 105 mmol/L (98-107); CKMB 0.4 U/L (0.0-3.6); CREATINE KINASE 59 UL (21-215); CREATININE - SERUM 1.3 mg/dL (0.6-1.3); POTASSIUM - SERUM 4.3 mmol/L (3.5-5.1); PROTEIN - SERUM 6.9 g/dL (6.4-8.2); SODIUM 141 mmol/L (136-145); TROPONIN-I < 0.017 ng/mL (0.000-0.060); UREA NITROGEN 14 mg/dL (7-18); eGFR NON AFRICAN AMERICAN 47 mL/min (90-120)
[2018-12-05 06:58] LABS: GLUCOSE 187 mg/dL (74-106)
[2018-12-05 08:47] VITALS: BP 134/85
[2018-12-05 08:53] VITALS: BP 129/73
[2018-12-05 14:18] VITALS: Ht 160 cm; Wt 69.1 kg
[2018-12-05 16:27] VITALS: BP 172/96
[2018-12-05 22:41] VITALS: BP 205/126
[2018-12-06] VITALS: BP 184/89
[2018-12-06 04:00] VITALS: BP 113/50
--- NOTE | 2018-12-06 08:22 | HP ---
PATIENT: SHARON BELTRE MEDICAL RECORD: [id number] ACCOUNT: [id number] LOCATION:[address] : 71 ADMISSION DATE: 12/05/18 PCP: No PCP HISTORY AND PHYSICAL EXAMINATION DIAGNOSES: 1. Unstable angina. 2. Coronary artery disease. 3. Previous percutaneous transluminal coronary angioplasty stent. 4. Diabetes. 5. Hypertension. 6. Hyperlipidemia. 7. Family history of premature coronary artery disease. 8. Smoking history. HISTORY OF PRESENT ILLNESS: Mrs. Beltre presents with 1-month of increasing anginal discomfort; however, over the past week this has developed into class IV unstable anginal symptomatology. She has a history of coronary artery disease. She has a cardiac catheterization in [address] [facility]. She had 3-vessel coronary artery disease. She states she only had 1-vessel stented. It is unclear why the other vessels were not addressed at that time, she did not ever have total resolution of her anginal symptomatology. She has had a dramatic worsening of that as above just recently. She does have hypertension, on multiple medications; hyperlipidemia; non-insulin dependent diabetes. Her heart rates in the 70s. Her systolic blood pressures in the 110-120 range. She is on a calcium channel bib, nitrate, DEJAH inhibitor and beta bib and continues to have progression of her angina class IV symptomatology. PHYSICAL EXAMINATION: CONSTITUTIONAL/GENERAL APPEARANCE: Well nourished, well developed, appears stated age. EYES: Lids and conjunctivae noninjected. No discharge. No pallor. ENT: Lips within normal limit. No cyanosis. No pallor. NECK: Carotid arteries, bilateral normal upstroke. No bruits. No thrills. No jugular venous pressure or distention. CERVICAL LYMPH NODES: Nontender. Nonenlarged. THYROID: Not enlarged. No nodules. CARDIOVASCULAR: Precordial exam, nondisplaced. No heaves or pericardial thrills. Rate and rhythm, regular. Heart sounds, normal S1, normal S2. No S3, no gallop, no rub. Systolic murmur, not heard. Diastolic murmur, not heard. RESPIRATORY: Respiratory effort, unlabored. Normal curvature. No thoracic deformity. No chest wall tenderness. Percussion, resonant. Auscultation, clear. No wheezes, no rales, no rhonchi. ABDOMEN: Soft, nondistended, nontender. No abdominal pain, no vomiting and normal appetite. MUSCULOSKELETAL: No joint tenderness, normal gait, normal tone. SKIN: Warm and dry. OVERALL IMPRESSION: Unstable angina class IV despite maximal medical therapy. At this time, most likely she has hemodynamically significant coronary artery disease. We will proceed with coronary angiography. She initially stated that SHE HAS AN ALLERGY TO IODINATED CONTRAST. It is the stressor that was used for the chemical stress test. It is not IV contrast. She had no problem with cardiac catheterization, only had problems with the stress test, most likely this is a Lexiscan that she had a reaction to. HISTORY AND PHYSICAL [id number] SHARON BELTRE TRANSINT:[id number] Voice Confirmation ID: [id number] DOCUMENT ID: [id number] TRACIE TROY MD at 0822 CC: [id number] DICTATION DATE: 12/05/18928 CASKET ASSEMBLER: 12/05/18 0943 ADM IN [place] [id number] [place] [address]
[2018-12-06 09:55] VITALS: BP 129/82
--- NOTE | 2018-12-06 17:25 | MORECARE ---
CASE MANAGEMENT DISCHARGE SUMMARY PATIENT: SHARON APONTE UNIT: [id number] ADM DATE: 12/05/18 AGE: 42 : 71 SEX: F ROOM/BED: D.5232 AUTHOR: MARISA SUMMERS PHYSICIAN: REFERRING PHYSICIAN: TRACIE TROY MD DATE OF SERVICE: 12/06/18 Discharge Plan Patient Name: SHARON APONTE [facility] : 1975 Planned Disposition: Home Anticipated Discharge Date: 12/06/18 Discharge Date: 12/06/2018 Expected LOS: 1 Initial Reviewer: [email or web address] Initial Review Date: 12/06/2018 Generated: 12/06/18 6:25 pm Patient Name: SHARON APONTE Page 57345 at 2806 All edits/amendments must be made on the electronic document DICTATION DATE: 12/06/181724 AEROBICS INSTRUCTOR: EMILY 12/06/181724 RPT#: [id number] DC DATE:12/06/18 STATUS: DIS IN [facility] [address] [place] [address] END OF REPORT
--- NOTE | 2018-12-06 17:32 | MORECARE ---
CASE MANAGEMENT DISCHARGE SUMMARY PATIENT: SHARON APONTE UNIT: [id number] ADM DATE: 12/05/18 AGE: 42 : 71 SEX: F ROOM/BED: D.7972 AUTHOR: KRISOTPHER,DOC PHYSICIAN: REFERRING PHYSICIAN: TRACIE TROY MD DATE OF SERVICE: 12/06/18 Discharge Plan Patient Name: SHARON APONTE Facility: [facility]:[place] : 1975 Planned Disposition: Home Anticipated Discharge Date: 12/06/18 Discharge Date: 12/06/2018 Expected LOS: 1 Initial Reviewer: [email or web address] Initial Review Date: 12/06/2018 Generated: 12/06/18 6:32 pm Comments DCP- Discharge Planning Updated by [email or web address]: Kuldeep Duke on 12/06/18 4:[address] Patient Name: SHARON APONTE Admission Status: ER Accout number: [id number] Admission Date: 12-05-2018 : 1975 Admission Diagnosis: Attending: RASHID TROY Current LOS: 1 Anticipated DC Date: 12-06-2018 Planned Disposition: Home Primary Insurance: MEDICAID [place] Discharge Planning Comments: CM MET WITH PT IN ROOM TO DISCUSS DISCHARGE PLANNING AND NEEDS. PT REPORTS LIVING AT HOME INDEPENDENTLY WITH HER ADULT DAUGHTER. PT CURRENTLY HAS NO HOME OF HER OWN BUT HAS ASSITANCE OF FAMILY. PT HAS CANE AND GLUCOMETER WITH NO MEDICAL EQUIPMENT PROVIDER PREFERENCE. PT HAS NO OUTSIDE SERVICES ASSISTING IN THE HOME. CM DISCUSSED AVAILABILITY OF HOME HEALTH, REHAB SERVICES AND MEDICAL EQUIPMENT. PT DENIES DISCHARGE NEEDS, REPORTS HER DAUGHTER WILL PICK HER UP FOR DISCHARGE TO HER DAUGHTER'S HOME IN [place]. Continuous Mining Machine Coal Miner: Kuldeep Duke DCPIA - Discharge Planning Initial Assessment Updated by [email or web address]: Kuldeep Duke on 12/06/18 5:28 pm * Is the patient Alert and Oriented? Yes * How many steps to enter\exit or inside your home? 10 * PCP MARKIE COOK IN [place] * Pharmacy [facility] * Preadmission Environment Home with Family * ADLs Independent * Equipment Cane Glucometer * Other Equipment NO MEDICAL EQUIPMENT PROVIDER PREFERENCE * List name and contact numbers for known caregivers / representatives who currently or will assist patient after discharge: CORINA APONTE DTR, * Verbal permission to speak to the caregivers and representatives has been obtained from the patient. N/A * Community resources currently utilized None * Please name any agencies selected above. NONE * Additional services required to return to the preadmission environment? No * Can the patient safely return to the preadmission environment? Yes * Has this patient been hospitalized within the prior 30 days at any hospital? No Last DP export: 12/06/18 4:25 p Patient Name: SHARON APONTE Page 68234 at 1732 All edits/amendments must be made on the electronic document DICTATION DATE: 12/06/181730 STAMPS OR COINS SALESPERSON: EMILY 12/06/181730 RPT#: [id number] PA DATE:12/06/18 STATUS: DIS IN [facility] [address] [place] [address] END OF REPORT
--- NOTE | 2018-12-07 10:47 | OP ---
PATIENT NAME: SHARON APONTE MEDICAL RECORD: [id number] :71 LOCATION:D.M2 D.2122 ADMISSION DATE:12/05/18 SURGEON: TRACIE TROY MD DATE OF OPERATION: 12/05/2018 PROCEDURES: 1. PTCA stent LAD. 2. Left heart catheterization. 3. Selective coronary angiography. 4. ZARAGOZA angiography. 5. Vein graft angiography. 6. Left ventriculogram. INDICATION: Unstable angina. PROCEDURE IN DETAIL: After informed consent was obtained and after a detailed description of risks, benefits as well as alternative therapies, the patient elected to proceed with angiogram and angioplasty. The right femoral area had a preexisting sheath from peripheral intervention. All catheters exchanged through this sheath. FINDINGS: Left ventriculogram was performed in standard 30-degree SALVADOR view, reveals preserved cardiac wall motion, ejection fraction 50%. SELECTIVE CORONARY ANGIOGRAPHY: 1. Left main showed no significant angiographic disease. 2. Left anterior descending has total occlusion in the proximal vessel. 3. Left circumflex has total occlusion in the proximal vessel. 4. The right coronary has multiple areas of high-grade stenosis throughout the mid vessel. There is a relatively large PLV system that has 90% to 95% stenosis at the ostium. This is nongrafted. 5. Vein graft to the PDA is patent. The distal PDA is patent. 6. ZARAGOZA to the LAD is patent. Distal LAD is widely patent. 7. Closed vein graft most likely to the circumflex is present. PTCA STENT OF THE RCA PLV: Stent used was a 2.5 x 15 mm [place]. Result was 0% residual stenosis. OVERALL IMPRESSION: Successful PTCA stent of the RCA PLV that is nongrafted going from 90% to 95% initial stenosis to 0% residual. TRANSINT:[id number] Voice Confirmation ID: [id number] DOCUMENT ID: [id number] TRACIE TROY MD at 1047 CC: [id number] DICTATION DATE: 12/05/18 1225 DISH MAKER: 12/05/18 1243 DIS IN 12/06/18 [place] [address]
--- NOTE | 2018-12-07 10:47 | OP ---
PATIENT NAME: SHARON APONTE MEDICAL RECORD: [id number] :71 LOCATION:D.M2 D.2122 ADMISSION DATE:12/05/18 SURGEON: TRACIE TROY MD DATE OF OPERATION: 12/05/2018 PROCEDURES: 1. HEMMER CHAINSTITCH stent, bilateral iliacs. 2. Aortofemoral runoff. 3. Abdominal aortography. INDICATION: Peripheral vascular disease, inability to gain access for coronary intervention. PROCEDURE IN DETAIL: After informed consent was obtained and after a detailed description of risks, benefits as well as alternative therapies, the patient elected to proceed with angiogram and angioplasty. Both femoral areas were prepped and draped in normal sterile fashion. Both femoral arteries were cannulated via modified Seldinger technique with placement of 6-Belizean sheath. All catheters exchanged through this sheath. FINDINGS: Abdominal aortography was performed. The catheter was pulled down for aortofemoral runoff. Abdominal aortography reveals no significant abdominal aortic disease, no dissection or aneurysm formation. RIGHT LEG: A. Iliac: The common iliac has a 90+ percent stenosis at the ostium. The remainder of the iliac system has kknf-hn-hmhdbdqk irregularities. B. Femoral system: The common superficial and deep femoral have moderate irregularities, but no flow-limiting stenosis. C. Popliteal and infrapopliteal vessels are widely patent with good 3-vessel runoff to the foot. LEFT LEG: A. Iliac: The common iliac has a 90+ percent stenosis at the ostium. The remainder of the iliac system has afgk-no-zylfsdtf irregularities. B. Femoral system: The common superficial and deep femoral have moderate irregularities, but no flow-limiting stenosis. C. Popliteal and infrapopliteal vessels are widely patent with good 3-vessel runoff to the foot. HEMMER CHAINSTITCH STENT OF BOTH ILIACS: We were able to traverse this area of stenosis with a 6 x 18 Cordis Lucinda stent bilaterally with inflations to 15 atmospheres bilaterally. Result was 0% residual stenosis. OVERALL IMPRESSION: Successful percutaneous transluminal angioplasty stent of both iliacs going from 90+ percent initial stenosis to 0% residual. TRANSINT:[id number] Voice Confirmation ID: [id number] DOCUMENT ID: [id number] OPERATIVE REPORT [id number] SHARON APONTE TRACIE TROY MD at 1047 CC: [id number] DICTATION DATE: 12/05/18 1225 CUFF STITCHER: 12/05/18 1238 DIS IN 12/06/18 [facility] [address] [place], [facility]
--- NOTE | 2018-12-25 10:37 | DS ---
PATIENT:SHARON BELTRE :71 MEDICAL RECORD: [id number] DISCHARGE SUMMARY ADMISSION DATE: 12/05/18 DISCHARGE DATE: 12/06/18 DISCHARGE DIAGNOSES: 1. Unstable angina. 2. Coronary artery disease. 3. Status post coronary artery bypass graft surgery. 4. Status post previous percutaneous transluminal coronary angioplasty stent. 5. Insulin-dependent diabetes. 6. Hypertension. HOSPITAL COURSE: Mrs. Beltre presents with unstable anginal symptomatology, found to have significant disease of the RCA to a non-grafted PLV, underwent successful PTCA stent of this territory, marked improvement in her anginal symptomatology. Discharged home with the addition of Plavix to her medical regimen. She will follow up with [facility] in 3[facility]4 weeks. TRANSINT:[id number] Voice Confirmation ID: [id number] DOCUMENT ID: [id number] TRACIE TROY MD at 1037 CC: [id number] DICTATION DATE: 12/06/18829 COOK 3 PASTRY: 12/07/18 0005 DIS IN 12/06/18 [place] [address] [place] [address]
== END 2018-12-06 11:47 | disposition home or self-care (01) | DRG 247 ==
LOC: D.ER 21:03 → D.M2 23:14 → OBSVTIME 23:14 → D.M2 23:14
PROVIDERS: Family Medicine; ADMIT Internal Medicine Interventional Cardiology; ATTEND Internal Medicine Interventional Cardiology
PROC: 047L3ZZ Dilation of Left Femoral Artery, Percutaneous Approach (ICD-10-PCS; 2018-12-05)
PROC: 047K3ZZ Dilation of Right Femoral Artery, Percutaneous Approach (ICD-10-PCS; 2018-12-05)
PROC: 047N3ZZ Dilation of Left Popliteal Artery, Percutaneous Approach (ICD-10-PCS; 2018-12-05)
PROC: 047M3ZZ Dilation of Right Popliteal Artery, Percutaneous Approach (ICD-10-PCS; 2018-12-05)
PROC: 4A023N7 Measurement of Cardiac Sampling and Pressure, Left Heart, Percutaneous Approach (ICD-10-PCS; 2018-12-05)
PROC: B2111ZZ Fluoroscopy of Multiple Coronary Arteries using Low Osmolar Contrast (ICD-10-PCS; 2018-12-05)
PROC: B2151ZZ Fluoroscopy of Left Heart using Low Osmolar Contrast (ICD-10-PCS; 2018-12-05)
PROC: B2181ZZ Fluoroscopy of Left Internal Mammary Bypass Graft using Low Osmolar Contrast (ICD-10-PCS; 2018-12-05)
PROC: B2121ZZ Fluoroscopy of Single Coronary Artery Bypass Graft using Low Osmolar Contrast (ICD-10-PCS; 2018-12-05)
PROC: 027034Z Dilation of Coronary Artery, One Artery with Drug-eluting Intraluminal Device, Percutaneous Approach (ICD-10-PCS; principal; 2018-12-05 10:11)
PROC: 047D3ZZ Dilation of Left Common Iliac Artery, Percutaneous Approach (ICD-10-PCS; 2018-12-05 10:11)
PROC: 047C3ZZ Dilation of Right Common Iliac Artery, Percutaneous Approach (ICD-10-PCS; 2018-12-05 10:11)
DX: I25.110 Atherosclerotic heart disease of native coronary artery with unstable angina pectoris (principal); I10 Essential (primary) hypertension; E78.5 Hyperlipidemia, unspecified; E11.51 Type 2 diabetes mellitus with diabetic peripheral angiopathy without gangrene; Z87.891 Personal history of nicotine dependence

== ENCOUNTER 2018-12-06 13:08 | Emergency (ER) | payer MEDICAID ==
[~2018-12-06] VITALS: Ht 160 cm; Wt 70.0 kg
[2018-12-06 13:16] VITALS: Ht 160 cm; Wt 70.0 kg
[2018-12-06 14:09] LABS: APTT 23.6 SECONDS (22.8-39.4); INR 0.99 (0.85-1.17); PROTIME 12.6 SECONDS (11.6-15.0)
[2018-12-06 14:13] LABS: ALBUMIN 3.4 g/dL (3.4-5.0); ALKALINE PHOSPHATASE 128 U/L (46-116); ALT (SGPT) 34 U/L (10-68); CALC OSMOLALITY 283 mosm/kg (275-300); CALCIUM 8.9 mg/dL (8.5-10.1); CARBON DIOXIDE 26.2 mmol/L (21.0-32.0); CHLORIDE - SERUM 98 mmol/L (98-107); CREATININE - SERUM 1.4 mg/dL (0.6-1.3); GLUCOSE 304 mg/dL (74-106); POTASSIUM - SERUM 4.1 mmol/L (3.5-5.1); SODIUM 135 mmol/L (136-145); UREA NITROGEN 21 mg/dL (7-18); eGFR NON AFRICAN AMERICAN 43 mL/min (90-120)
[2018-12-06 14:14] LABS: BASOPHILS 0.1 % (0-2); EOSINOPHILS 0 % (0-7); HEMATOCRIT 29.7 % (36.0-48.0); IMMATURE GRANULOCYTES 0.1 % (0-5); LYMPHOCYTES 25.7 % (15-50); MCH 27.2 pg (26.0-34.0); MCHC 33.7 g/dL (31.0-37.0); MCV 80.7 fL (80.0-100.0); MEAN PLATELET VOLUME 10.4 fL (7.4-10.4); MONOCYTES 8.6 % (2-11); NEUTROPHILS 65.5 % (40-80); PLATELET COUNT 227 10x3/uL (130-400); RBC 3.68 10x6/uL (4.00-5.40); RDW 14.6 % (11.5-14.5)
[2018-12-06 14:25] LABS: CREATINE KINASE 94 UL (21-215); MAGNESIUM - SERUM 1.7 mg/dL (1.8-2.4); TROPONIN-I < 0.017 ng/mL (0.000-0.060)
[2018-12-06 14:34] VITALS: BP 150/86
[2018-12-06 14:37] LABS: WBC 7.1 10x3/uL (4.8-10.8)
== END 2018-12-06 15:12 | disposition home or self-care (01) ==
LOC: D.ER 13:08
PROVIDERS: Family Medicine
DX: I10 Essential (primary) hypertension (principal); R07.9 Chest pain, unspecified

== ENCOUNTER 2019-02-25 06:45 | Inpatient (IN) | payer MEDICAID ==
[~2019-02-25] VITALS: Ht 160 cm; Wt 64.9 kg
--- NOTE | 2019-02-25 07:10 | NUR ---
BEDSIDE GLUCOSE = 375MG/DL
--- NOTE | 2019-02-25 07:50 | NUR ---
RCVD TC FROM LAB, CRITICAL TROPONIN 5.128 DR BOWER NOTIFIED
[2019-02-25 08:15] LABS: BASOPHILS 0.2 % (0-2); EOSINOPHILS 1.5 % (0-7); HEMATOCRIT 33.6 % (36.0-48.0); LYMPHOCYTES 43.5 % (15-50); MCHC 32.7 g/dL (31.0-37.0); MCV 85.5 fL (80.0-100.0); MEAN PLATELET VOLUME 10.5 fL (7.4-10.4); MONOCYTES 7.9 % (2-11); NEUTROPHILS 46.9 % (40-80); PLATELET COUNT 244 10x3/uL (130-400); RBC 3.93 10x6/uL (4.00-5.40); RDW 13.4 % (11.5-14.5); WBC 6.2 10x3/uL (4.8-10.8)
[2019-02-25 08:22] LABS: CALC OSMOLALITY 289 mosm/kg (275-300); CALCIUM 8.5 mg/dL (8.5-10.1); CARBON DIOXIDE 32.4 mmol/L (21.0-32.0); CHLORIDE - SERUM 101 mmol/L (98-107); CREATININE - SERUM 1.3 mg/dL (0.6-1.3); GLUCOSE 366 mg/dL (74-106); POTASSIUM - SERUM 3.5 mmol/L (3.5-5.1); SODIUM 137 mmol/L (136-145); UREA NITROGEN 16 mg/dL (7-18); eGFR NON AFRICAN AMERICAN 47 mL/min (90-120)
[2019-02-25 08:39] LABS: ALBUMIN 3.1 g/dL (3.4-5.0); ALKALINE PHOSPHATASE 137 U/L (46-116); ALT (SGPT) 23 U/L (10-68); AMYLASE - SERUM 55 U/L (25-115); BILIRUBIN - TOTAL 0.18 mg/dL (0.2-1.3); CKMB 1.4 U/L (0.0-3.6); CREATINE KINASE 92 UL (21-215); LIPASE 253 U/L (73-393); MAGNESIUM - SERUM 1.5 mg/dL (1.8-2.4); TROPONIN-I 0.034 ng/mL (0.000-0.060)
[2019-02-25] MEDS ORDERED: NITROSTAT0.6 MG (09:30)
[2019-02-25 09:37] VITALS: BP 128/76; BMI 25.3
--- NOTE | 2019-02-25 09:45 | NUR ---
NEW PATIENT ADMIT FROM ER VIA WC AND ACCOMPANIED BY ER STAFF. PATIENT TRANSFERRED TO BED. PATIENT IS AWAKE, ALERT AND ORIENTED X 4. PATIENT IS VERY SLEEPY AND LETHARGIC. PATIENT DENIES ANY NEEDS OR PAIN. ASSESSMENT COMPLETED. PATIENT ORIENTED TO ROOM AND CALL LIGHT . TELEMETRY APPLIED. WILL CONTINUE WITH PLAN OF CARE. SR UP X 2 BED IN LOW POSITION AND CALL LIGHT IN REACH.
--- NOTE | 2019-02-25 14:27 | NUR ---
PATIENT IS STABLE AND VSS. PATIENT LAYING IN BED ON RT SIDE WITH EYES CLOSED AND BREATHING EVENLY. WILL CONTINUE TO MONITOR. SR UP X 2 BED IN LOW POSITION AND CALL LIGHT IN REACH.
[2019-02-25 14:57] VITALS: BP 166/93
[2019-02-25 17:33] VITALS: BP 197/111
[2019-02-25 18:09] LABS: APTT 24.5 SECONDS (22.8-39.4); INR 1.01 (0.85-1.17); PROTIME 12.8 SECONDS (11.6-15.0)
[2019-02-25 18:10] LABS: D-DIMER-QUANTITATIVE 0.86 ug/mLFEU (0.20-0.54)
[2019-02-25 20:34] VITALS: BP 155/82
[2019-02-26 01:10] VITALS: BP 154/85
[2019-02-26 05:31] LABS: ANION GAP 11.7 mmol/L (8-16); BASOPHILS 0.2 % (0-2); CALCIUM 8.2 mg/dL (8.5-10.1); CARBON DIOXIDE 27.6 mmol/L (21.0-32.0); CREATININE - SERUM 1.1 mg/dL (0.6-1.3); EOSINOPHILS 3.3 % (0-7); HEMATOCRIT 33.6 % (36.0-48.0); HEMOGLOBIN 10.7 g/dL (12-16); IMMATURE GRANULOCYTES 0.2 % (0-5); LYMPHOCYTES 39.4 % (15-50); MAGNESIUM - SERUM 1.2 mg/dL (1.8-2.4); MCH 27.3 pg (26.0-34.0); MCHC 31.8 g/dL (31.0-37.0); MCV 85.7 fL (80.0-100.0); MEAN PLATELET VOLUME 10.7 fL (7.4-10.4); MONOCYTES 8.1 % (2-11); NEUTROPHILS 48.8 % (40-80); PLATELET COUNT 238 10x3/uL (130-400); POTASSIUM - SERUM 3.3 mmol/L (3.5-5.1); RBC 3.92 10x6/uL (4.00-5.40); RDW 13.4 % (11.5-14.5); WBC 5.2 10x3/uL (4.8-10.8)
[2019-02-26 05:58] VITALS: BP 137/76
--- NOTE | 2019-02-26 06:00 | NUR ---
I have reviewed this patient and I concur with the Shift Assessment completed by the Licensed Practical Nurse today this shift.
--- NOTE | 2019-02-26 07:10 | NUR ---
REPORT RECEIVED FROM MANAGER NC AND PATIENT CARE ASSUMED. PATIENT LAYING IN BED ON BACK WITH EYES CLOSED AND BREATHING EVENLY. VSS. WILL CONTINUE WITH PLAN OF CARE. SR UP X 2 BED IN LOW POSITION AND CALL LIGHT IN REACH.
--- NOTE | 2019-02-26 08:45 | NUR ---
PATIENT NPO. ABD USG PERFROMED BY COMMODITY SUPERVISOR. PATIENT IS STABLE AND VSS.
[2019-02-26 09:31] VITALS: BP 133/84
[2019-02-26 12:00] VITALS: BP 100/65
[2019-02-26 15:04] VITALS: Ht 160 cm; Wt 64.9 kg
--- NOTE | 2019-02-26 15:39 | NUR ---
PATIENT UP TO BR. PATIENT IS GROGGY BUT STEADY ON HER FEET. PATIENT DENIES ANY NEEDS OR PAIN. WILL CONTINUE WITH PLAN OF CARE. SR UP X 2 BED IN LOW POSITION AND CALL LIGHT IN REACH.
[2019-02-26 16:00] VITALS: BP 124/70
--- NOTE | 2019-02-26 19:30 | NUR ---
PT GUARD CHIEF LIGHT, ENTERED ROOM, PT STATED THAT SHE IS "LONG OVER DUE FOR HER PAIN MEDS" EXPLAINED TO PT THAT I HAD JUST GOTTEN HERE BUT WILL BE MORE THAN HAPPY TO LOOK AND SEE WHEN HER PAIN MEDS ARE DUE.
--- NOTE | 2019-02-26 19:32 | NUR ---
FAXED [facility] TO [facility] TO [facility]PATIENT STATUS.
--- NOTE | 2019-02-26 19:40 | NUR ---
HS MEDS GIVEN WITH FRESH ICE WATER. MORPHINE 4 MG AND ZOFRAN 4 MG GIVEN AT PT REQUEST. EXPLAINED TO PT THAT DR ALVAREZ HAS ORDERED A PIPIDA SCAN TO CHECK THE FUNCTION OF HER GALLBLADDER AND THAT SHE CANT HAVE PAIN MEDS OR EAT OR DRINK ANY THING AFTER MN. PT STATED UNDERSTANING. INFORMED PT THAT I WILL BE ABLE TO GIVEN HER ONE MORE DOSE OF MORPHINE AND A SNACK RIGHT BEFORE MN.
[2019-02-26 20:00] VITALS: BP 146/76
--- NOTE | 2019-02-26 23:46 | NUR ---
MORPHINE 4 MG AND ZOFRAN 4 MG GIVEN AT PT REQUEST, REMINDED PT THAT SHE CANT HAVE ANY MORE PAIN MEDS OR EAT OR DRINK ANYTHING AFTER MN BECAUSE OF PIPIDA SCAN.
[2019-02-27] VITALS: BP 191/78
--- NOTE | 2019-02-27 02:47 | NUR ---
PT SITTING UP ON SIDE OF BED ASKING FOR NITRO, STATING THAT SHE IS HAVING CHEST PAIN. PT 78 SR ON TELEMETRY, PLACED ON O2 AT 2 LITERS, BP 123/62, INFORMED PT THAT WE WERE UNSURE OF NITROS EFFECT ON A PIPIDA SCAN. PT INSISTED THAT SHE HAVE THE NITRO.
--- NOTE | 2019-02-27 03:18 | NUR ---
I have reviewed this patient and I concur with the Shift Assessment completed by the Licensed Practical Nurse today this shift.
--- NOTE | 2019-02-27 03:38 | NUR ---
SECOND NITRO GIVEN DUE TO CHEST PAIN.
[2019-02-27 04:00] VITALS: BP 150/68
--- NOTE | 2019-02-27 04:23 | NUR ---
PT VISUAL DEVELOPER LIGHT, ASKING FOR ANOTHER NITRO, 1 NITRO 0.4 MG GIVEN SUB LING. PT STATED THAT SHE KNOWS THAT SHE CANT HAVE PAIN MEDS AND HOPES THAT THIS NITRO WILL TAKE AWAY HER CHEST PAIN, PT HOLDING UPPER QUADRANT OF ABD WHILE STATING CHEST PAIN.
--- NOTE | 2019-02-27 05:35 | NUR ---
PT UP AT NURSES DESK YELLING THAT IF SHE DOESNT GET SOMETHING FOR PAIN THAT SHE IS GOING TO THE ER, PT STATES THAT SHE HASNT RECIEVED ANY THING FOR PAIN ALL NIGHT EXCEPT THE NITRO 0.4 AND THAT SHE NEEDS NITRO 0.6. PT STATING THAT SHE CANT BREATH HOW EVER IS YELLING WITH OUT PAUSE AND O2 SATS ARE 99% ON RA. VITALS STABLE AND PT HAS REMAINED SR ON TELEMETRY. WHEN PT WAS INFORMED OF HER VITALS AND RUNNING SR ON TELEMETRY, SHE STATED THAT THIS NURSE IS LYING BECAUSE HER MONITOR HAS BEEN OFF ALL NIGHT, I THEN ASKED THE CONCRETE SPREADER WHAT PT WAS RUNNING AND BLAZE STATED PT HAD JUST NOW COME OFF OF THE MONITOR. PT AGAIN STATED THAT WE WERE LYING. I TOLD PT THAT SHE HAD MORPHINE ORDERED BUT SHE COULDNT GET HER PIPIDA SCAN DONE, I THEN ASKED PT IF SHE WAS WILLING TO REFUSE THE PIPIDA SCAN, SHE THEN STATED THAT SHE IS GOING TO THE ER. I THEN WALKED TO THE BACK OF UNIT TO CALL THE PCP JAVA SWING DEVELOPER, AND CHARGE NURSE THEN CAME TO THE FRONT OF THE DESK TO SPEAK WITH PT.
--- NOTE | 2019-02-27 05:42 | NUR ---
SPOKE WITH JUAN MANUEL PERRY APN PREMIUM REPRESENTATIVE FOR DR MODI, EXPLAINED PTS BEHAVIOR AND EXPLAINED THAT PT HAS HAD NITRO 0.4 MG SL X3 DOSES AND IS INSISTING MORE. ORDERS GIVEN TO ADMINISTER MORPHINE 2 MG NOW FOR C/O PAIN.
--- NOTE | 2019-02-27 05:43 | NUR ---
PT C/O CHEST PAIN ASSESED. PT VITAL SIGNED AND EKG PERFOMED. PT'S NURSE TALKING TO PT'S PROVIDER AT THIS TIME.
--- NOTE | 2019-02-27 07:45 | NUR ---
REPORT RECEIVED FROM WEB OPERATIONS MANAGER AND PATIENT CARE ASSUMED. PATIENT SITTING UP IN BS CHAIR SPONGE BATHING AND CHANGING CLOTHES. PATIENT IS ALERT AND ORIENTED X 4. PATIENT DENIES ANY NEEDS OR PAIN. INFORMED PATIENT THAT SINCE SHE HAD MORPHINE AT 0524 THAT HER PIPIDA SCAN MAY BE CX OR DELAYED. INFORMED THAT SHE NEEDS TO REMAIN NPO AND THAT I WILL CHECK WITH NUC MED AND WILL LET PATIENT KNOW ABOUT TEST STATUS. PATIENT VERBALIZED UNDERSTANDING. CALLLIGHT IN REACH.
[2019-02-27 08:24] LABS: BASOPHILS 0.3 % (0-2); EOSINOPHILS 3.2 % (0-7); HEMATOCRIT 36.1 % (36.0-48.0); HEMOGLOBIN 11.8 g/dL (12-16); IMMATURE GRANULOCYTES 0.3 % (0-5); LYMPHOCYTES 33.8 % (15-50); MCH 28.2 pg (26.0-34.0); MCHC 32.7 g/dL (31.0-37.0); MCV 86.4 fL (80.0-100.0); MEAN PLATELET VOLUME 10.4 fL (7.4-10.4); MONOCYTES 5.5 % (2-11); NEUTROPHILS 56.9 % (40-80); PLATELET COUNT 244 10x3/uL (130-400); RBC 4.18 10x6/uL (4.00-5.40); RDW 13.4 % (11.5-14.5); WBC 6.2 10x3/uL (4.8-10.8)
[2019-02-27 08:27] LABS: ANION GAP 8.2 mmol/L (8-16); CALCIUM 8.6 mg/dL (8.5-10.1); CARBON DIOXIDE 29.5 mmol/L (21.0-32.0); CREATININE - SERUM 1.1 mg/dL (0.6-1.3); MAGNESIUM - SERUM 1.5 mg/dL (1.8-2.4); POTASSIUM - SERUM 3.7 mmol/L (3.5-5.1)
[2019-02-27 09:55] VITALS: BP 202/111
--- NOTE | 2019-02-27 10:33 | NUR ---
PATIENT LAYING IN BED ON LT SIDE WITH EYES CLOSED AND BREATHING EVENLY. WILL CONTINUE TO MONITOR. SR UP X 2 BED IN LOW POSITION AND CALL LIGHT IN REACH.
[2019-02-27 13:34] VITALS: BP 105/85
--- NOTE | 2019-02-27 14:15 | NUR ---
PATIENT TO NUC MED VIA WC AND NUC MED PERSONNEL. PATIENT IS STABLE AND VSS. PATIENT DENIES ANY NEEDS OR PAIN.
--- NOTE | 2019-02-27 14:47 | MORECARE ---
CASE MANAGEMENT DISCHARGE SUMMARY PATIENT: SHARON BELTRE UNIT: [id number] ADM DATE: 02/26/19 AGE: 43 : 71 SEX: F ROOM/BED: D.7625 AUTHOR: KRISTOPHER,DOC PHYSICIAN: REFERRING PHYSICIAN: GIULIA RODRIGUEZ MD DATE OF SERVICE: 02/27/19 Discharge Plan Patient Name: SHARON BELTRE Facility: [facility]:[place] : 1975 Planned Disposition: Home Anticipated Discharge Date: 02/28/19 Discharge Date: Expected LOS: 2 Initial Reviewer: [email or web address] Initial Review Date: 02/25/2019 Generated: 02/27/19 3:47 pm Comments DCP- Discharge Planning Updated by [email or web address]: Marta Isidro on 02/27/19 1:[address] DC PLAN: Return home independently. ANTICIPATED DC NEEDS: Would like HH for PT at in. Not sure she will qualify. CM met with patient to complete initial dc planning assessment. CM educated patient on the CM role and verbal consent given by patient to complete assessment. CM verified patient's address, phone number, and emergency contact phone numbers. Patient lives at home with her adult daughter. At discharge patient plans to return home and feels this is a safe discharge. CM discussed availability of home health, rehab services, and medical equipment. Patient stated she would like HH at in for PT. JESSE signed for [facility] HH if needed or md feels skilled need. Signed form placed in chart and signed form left with patient. Patient reports her daughter will transport her home at time of discharge. CM will continue to follow and will assist as needed with dc plans/needs. Marta Isidro RN, [facility] DCPIA - Discharge Planning Initial Assessment Updated by [email or web address]: Marta Isidro on 02/27/19 2:44 pm * Is the patient Alert and Oriented? Yes * PCP Dr. Martin at [facility] in [place] * Pharmacy [facility] * Preadmission Environment Home with Family * ADLs Independent * Equipment Cane Glucometer * List name and contact numbers for known caregivers / representatives who currently or will assist patient after discharge: Angelica Beltre - dtr - [phone] * Verbal permission to speak to the caregivers and representatives has been obtained from the patient. Yes * Community resources currently utilized None * Additional services required to return to the preadmission environment? No * Can the patient safely return to the preadmission environment? Yes * Has this patient been hospitalized within the prior 30 days at any hospital? No Patient Name: SHARON BELTRE Page [phone] at 1447 All edits/amendments must be made on the electronic document DICTATION DATE: 02/27/191445 CAGE SUPERVISOR: EMILY 02/27/191445 RPT#: [id number] DC DATE: STATUS: ADM IN [facility] [address] [place] [address] END OF REPORT
[2019-02-27 17:30] VITALS: BP 131/60
--- NOTE | 2019-02-27 18:14 | NUR ---
PATIENT LAYING IN BED VISITING WITH FRIEND AND EATING SUPPER. PATIENT DENIES ANY NEEDS OR PAIN. WILL CONTINUE TO MONITOR. SR UP X 2 BED IN LOW POSITION AND CALL LIGHT IN REACH.
--- NOTE | 2019-02-27 19:23 | NUR ---
EVENING ROUNDS COMPLETED. VSS, AAOX4, FRIEND AT BEDSIDE. PT C/O PAIN IN HER LOWER BACK. WILL ADMINISTER PAIN MED WHEN DUE. PT DENIES ANY FURTHER NEEDS AT THIS TIME WILL CPOC.
[2019-02-27 20:00] VITALS: BP 134/79
[2019-02-28 04:00] VITALS: BP 142/79
[2019-02-28 05:53] LABS: BASOPHILS 0 % (0-2); EOSINOPHILS 3.7 % (0-7); HEMATOCRIT 33.6 % (36.0-48.0); HEMOGLOBIN 10.9 g/dL (12-16); IMMATURE GRANULOCYTES 0.2 % (0-5); LYMPHOCYTES 38.1 % (15-50); MCH 28.2 pg (26.0-34.0); MCHC 32.4 g/dL (31.0-37.0); MEAN PLATELET VOLUME 10.9 fL (7.4-10.4); MONOCYTES 8.9 % (2-11); NEUTROPHILS 49.1 % (40-80); PLATELET COUNT 254 10x3/uL (130-400); RBC 3.86 10x6/uL (4.00-5.40); RDW 13.4 % (11.5-14.5); WBC 6.3 10x3/uL (4.8-10.8)
[2019-02-28 06:22] LABS: ANION GAP 13.6 mmol/L (8-16); CALCIUM 8.3 mg/dL (8.5-10.1); CARBON DIOXIDE 26.4 mmol/L (21.0-32.0); CREATININE - SERUM 1.3 mg/dL (0.6-1.3); MAGNESIUM - SERUM 1.3 mg/dL (1.8-2.4)
--- NOTE | 2019-02-28 07:45 | NUR ---
REPORT RECEIVED. WILL CONTINUE WITH POC. PT CURRENTLY LYING SUPINE. CALL LIGHT W/I REACH. RR EVEN AND UNLABORED ON 2L 02. NS INFUSING @125ML/HR VIA L.FOR PIV. NO S/S OF DISTRESS NOTED. PT REQUESTING PAIN MEDICATIONS UPON ENTERING THE ROOM. WILL CTM.
[2019-02-28 08:00] VITALS: BP 200/104
--- NOTE | 2019-02-28 08:42 | NUR ---
AM SYS BP IN 200S AND PT VERBALIZES PAIN SCALE AT 10/10. ADMININSTERED ORDERED AM MEDICATIONS. PT SCREAMING OUT IN PAIN. ADMININSTERED ORDERED DOSE OF PAIN MEDICATION. WILL CTM.
[2019-02-28 12:00] VITALS: BP 112/64
[2019-02-28] MEDS ORDERED: ISOSORBIDE MONO30 M1 PO (12:28)
--- NOTE | 2019-02-28 13:15 | NUR ---
PATIENT TO REFUSE FLU SHOT WHEN ASKED IF SHE WOULD LIKE ONE BEFORE DISCHARGE.
--- NOTE | 2019-02-28 13:21 | NUR ---
Nutrition Follow-up: Reports eating small amt of breakfast this AM; eating lunch at time of visit. Denies vomiting today. Noted plans to d/c. Diet: Diabetic No new wt Last BM: 02/23 per pt Labs noted: Glu 376, Mg 1.3 Meds noted: Humalog, MagOx, NS @ 200 -Continue current diet as tolerated. -RD following.
--- NOTE | 2019-02-28 14:36 | NUR ---
I have reviewed this patient and I concur with the Shift Assessment completed by the Licensed Practical Nurse today this shift.
[2019-02-28] MEDS ORDERED: PROTONIX40 MG PO (16:24)
--- NOTE | 2019-02-28 16:44 | NUR ---
PT DISCHARGED HOME VIA WHEELCHAIR WITH FAMILY. PIV REMOVED WITH CATHETER TIP FULLY INTACT. PT SIGNED PROPER DISCHARGE INSTRUCTIONS AND REMOVED ALL VALUABLES FROM THE ROOM.
--- NOTE | 2019-03-01 09:49 | MORECARE ---
CASE MANAGEMENT DISCHARGE SUMMARY PATIENT: SHARON BELTRE UNIT: [id number] ADM DATE: 02/26/19 AGE: 43 : 71 SEX: F ROOM/BED: D.4759 AUTHOR: KRISTOPHER,DOC PHYSICIAN: REFERRING PHYSICIAN: GIULIA RODRIGUEZ MD DATE OF SERVICE: 03/01/19 Discharge Plan Patient Name: SHARON BELTRE Facility: [facility]:[place] : 1975 Planned Disposition: Home Anticipated Discharge Date: 02/28/19 Discharge Date: 02/28/2019 Expected LOS: 2 Initial Reviewer: [email or web address] Initial Review Date: 02/25/2019 Generated: 03/01/19 10:48 am DCP- Discharge Planning Updated by [email or web address]: Marta Isidro on 02/27/19 1:[address] DC PLAN: Return home independently. ANTICIPATED DC NEEDS: [place] Not sure she will qualify. CM met with patient to complete initial dc planning assessment. CM educated patient on the CM role and verbal consent given by patient to complete assessment. CM verified patient's address, phone number, and emergency contact phone numbers. Patient lives at home with her adult daughter. At discharge patient plans to return home and feels this is a safe discharge. CM discussed availability of home health, rehab services, and medical equipment. Patient stated she [place] like [place]. JESSE signed for [facility] HH if needed or md feels skilled need. Signed form placed in chart and signed form left with patient. Patient reports her daughter will transport her home at time of discharge. CM will continue to follow and will assist as needed with dc plans/needs. Marta Isidro RN, [facility] DCPIA - Discharge Planning Initial Assessment Updated by [email or web address]: Marta Isidro on 02/27/19 2:44 pm * Is the patient Alert and Oriented? Yes * PCP Dr. Martin at [facility] in [place] * Pharmacy [facility] * Preadmission Environment Home with Family * ADLs Independent * Equipment Cane Glucometer * List name and contact numbers for known caregivers / representatives who currently or will assist patient after discharge: Angelica Beltre dtr - [phone] * Verbal permission to speak to the caregivers and representatives has been obtained from the patient. Yes * Community resources currently utilized None * Additional services required to return to the preadmission environment? No * Can the patient safely return to the preadmission environment? Yes * Has this patient been hospitalized within the prior 30 days at any hospital? No Last DP export: 02/27/19 1:47 Patient Name: SHARON BLETRE Page [phone] at 0949 All edits/amendments must be made on the electronic document DICTATION DATE: 03/01/19947 FORMING ROLL OPERATOR: EMILY 03/01/19947 RPT#: [id number] DC DATE:02/28/19 STATUS: DIS IN [facility] [address] [place] [address] END OF REPORT
--- NOTE | 2019-03-04 17:02 | CN ---
PATIENT NAME:SHARNO BELTRE MEDICAL RECORD: [id number] : 71 LOCATION:. D.2128 ADMIT DATE: 02/26/19 ACCOUNT: [id number] CONSULTING PHYSICIAN: TRACIE TROY MD REFERRING PHYSICIAN: GIULIA RODRIGUEZ MD DATE OF CONSULTATION: 02/25/2019 ADMITTING DIAGNOSES: 1. Chest pain. 2. Abdominal pain. 3. Coronary artery disease. 4. Previous cardiac stenting. 5. Previous coronary artery bypass graft surgery. 6. Hypertension. 7. Hyperlipidemia. 8. Insulin-dependent diabetes. 9. Peripheral vascular disease. HISTORY OF PRESENT ILLNESS: Mrs. Beltre presents with chest pain as well as abdominal pain. There are some components that are like her previous angina. There are some components that are different and more abdominal. She has a pain that definitely starts in the right upper quadrant that then radiates to the chest. It seems like she gets anxious with this uncomfortable, then she has her typical anginal pain, which is a dull aching heavy sensation centered in the anterior chest around the left side, which is her normal cardiac pain. She has been having this with increasing episodes. She has not had a GI workup in the past. Her EKG is with nonspecific ST-T abnormalities. Her troponin is still within normal limits, but slightly elevated. Repeat troponin will be pending. PHYSICAL EXAMINATION: CONSTITUTIONAL/GENERAL APPEARANCE: Well nourished, well developed, appears stated age. EYES: Lids and conjunctivae noninjected. No discharge. No pallor. ENT: Lips within normal limit. No cyanosis. No pallor. NECK: Carotid arteries, bilateral normal upstroke. No bruits. No thrills. No jugular venous pressure or distention. CERVICAL LYMPH NODES: Nontender. Nonenlarged. THYROID: Not enlarged. No nodules. CARDIOVASCULAR: Precordial exam, nondisplaced. No heaves or pericardial thrills. Rate and rhythm, regular. Heart sounds, normal S1, normal S2. No S3, no gallop, no rub. Systolic murmur, not heard. Diastolic murmur, not heard. RESPIRATORY: Respiratory effort, unlabored. Normal curvature. No thoracic deformity. No chest wall tenderness. Percussion, resonant. Auscultation, clear. No wheezes, no rales, no rhonchi. ABDOMEN: Soft, nondistended, nontender. No abdominal pain, no vomiting and normal appetite. MUSCULOSKELETAL: No joint tenderness, normal gait, normal tone. SKIN: Warm and dry. OVERALL IMPRESSION: Chest pain, some typical components for angina, some atypical components. We will repeat her troponin. If this increases, we would consider repeat coronary angiography. Otherwise, continue medical management of the coronary artery disease and cardiac risk factors and proceed with GI workup. TRANSINT:[id number] Voice Confirmation ID: [id number] DOCUMENT ID: [id number] CONSULT REPORT [id number] SHARON BELTRE, TRACIE AREVALO at 1702 CC: [id number] DICTATION DATE: 02/25/19 1217 CREATIVE TECHNOLOGIST: 02/25/19 1224 DIS IN 02/28/19 [address] [id number] [place] [address]
--- NOTE | 2019-03-04 17:02 | EC ---
PATIENT:SHARON APONTE DATE OF SERVICE: 02/25/19 SEX: F MEDICAL RECORD: [id number] DATE OF : 71 LOCATION:D. D.212 AGE OF PATIENT: 43 ADMISSION DATE: 02/26/19 REFERRING PHYSICIAN: INTERPRETING PHYSICIAN: TRACIE ELLINGTON MD ECHOCARDIOGRAM REPORT ECHO CHARGES 4 ECHO COMPLETE Date: 02/25/19 CLINICAL DIAGNOSIS: SOB/ ANGINA ECHOCARDIOGRAPHIC MEASUREMENTS (adult normal given) AC root (d.<3.7cm) 2.4 cm LV Septum d (<1.2 cm> 1.3 cm Valve Excursion 1.5 cm LV Septum (systole) 2.1 cm Left Atria (s.<4.0cm> 3.4 cm LVPW d(<1.2cm) 1.1 cm RV (d.<2.3cm) 2.7 cm LVPW (sytole) 1.3 cm LV diastole(<5.6CM) 4.3 cm MV E-F(>70mm/sec) cm LV systole 3.3 cm LVOT Diameter 1.7 cm MV exc.(>10mm) cm Est.ejection fraction (50-75%) % DOPPLER: LVIT cm/sec A 110 cm/sec E 92 cm/sec LA cm/sec RVSP 37.5 mmHg LVOT 105 cm/sec AOP1/2T m/s Asc. 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 Waxer: 1 Dr. Ellington TAPE# PACS Pericardial Effusion N DATE OF SERVICE: 02/25/2019 ECHOCARDIOGRAM FINDINGS: 1. Left ventricular chamber size is within normal limits. Left ventricular systolic function is normal. Overall ejection fraction estimated at 55%. 2. Left atrium, right atrium, and right ventricular chamber sizes are within normal limits. 3. Valvular structures have normal structure and motion. ECHOCARDIOGRAM REPORT [id number] SHARON APONTE 4. Doppler interrogation reveals mild mitral regurgitation, mild tricuspid regurgitation, no other valvular insufficiency or stenosis. Pulmonary systolic pressure estimated 37 mmHg. 5. No evidence of pericardial effusion or left ventricular thrombus. TRANSINT:[id number] Voice Confirmation ID: [id number] DOCUMENT ID: [id number] TRACIE ELLINGTON MD at 1702 CC: [id number] DICTATION DATE: 02/25/191654 TERRITORY SALES EXECUTIVE: 02/25/19 175 DIS IN 02/28/19 [place] [id number] [place] [id number]
[2019-03-11] MEDS ORDERED: NOVOLOG100 UNIT/1 SC (15:39)
== END 2019-02-28 16:44 | disposition home or self-care (01) | DRG 392 ==
LOC: D.ER 06:45 → D.M2 07:43 → OBSVTIME 09:02 → D.M2 02-26 19:21
PROVIDERS: Family Medicine; Family Medicine Adult Medicine; ADMIT Family Medicine; ATTEND Family Medicine
DX: R10.11 Right upper quadrant pain (principal); I25.110 Atherosclerotic heart disease of native coronary artery with unstable angina pectoris; J44.9 Chronic obstructive pulmonary disease, unspecified; G40.909 Epilepsy, unspecified, not intractable, without status epilepticus; E11.65 Type 2 diabetes mellitus with hyperglycemia; R10.13 Epigastric pain

== ENCOUNTER 2019-03-11 16:23 | Outpatient (CLI) | payer MEDICAID ==
[~2019-03-11] VITALS: Ht 160 cm; Wt 65.9 kg
--- NOTE | ~2019-03-11 | HEMODYNAMI ---
PATIENT:SHARON APONTE MEDICAL RECORD: [id number] : 71 LOCATION:[facility] D.212RUSTT# [id number] ADMISSION DATE: 03/11/19 Generatedon:03/12/201911:30 Patient name: SHARON APONTE Patient #: [id number] SSN: [id number] : 1975 Date of study: 03/12/2019 Page: Of Hemodynamic Procedure Report Patient Data Patient Demographics Procedure consent was obtained First Name: SHARON Gender: Female Last Name: FADI : 1975 Patient #: [id number] Age: 43 year(s) Race: Black SSN: [id number] Additional ID: [id number] Contact details Address: [place] [address] State: [place] City: [place] Zip code: [address] Past Medical History Performed procedures and imaging results Date Procedure Procedure Results Comments 12/05/2018 Diagnostic cath stent lt and rt procedure iliac Allergies Allergen Reaction Date Comments Reported Other allergy 12/05/2018 CONTRAST- ORAL AND IV. PCN Other allergy 03/12/2019 Iodinated Contrast-Coded Penicillin-Coded Codeine Admission Admission Data Admission Date: 03/11/2019 Admission Time: 16:23 Arrival Date: 03/12/2019 Arrival Time: 0:00 Admit Source: Other Insurance Payor: Medicaid Room #: D.2121 [facility] #: [id number] Height (in.): 63 BSA: 1.69 (m2) Height (cm.): 160.02 BMI: 25.74 (kg/m2) Weight (lbs.): 145.29 Weight (kg.): 65.9 Lab Results Lab Result Date: 03/12/2019 Lab Result Time: 0:00 Biochemistry Name Units Result Min Max BUN mg/dl 9 --(*---)-- 7 18 Creatinine mg/dl 1.2 --(---*)-- 0.6 1.3 eGFR ml/min 51 *-(----)-- 90 120 NONAFRICAN Troponin l ng/ml 0.017 --(-*--)-- 0 0.06 CBC Name Units Result Min Max Hematocrit % 36.1 *-(----)-- 42 54 Hemoglobin g/dl 11.7 *-(----)-- 13.5 17.5 Procedure Procedure Types Cath Procedure Diagnostic Procedure LHC LHC w/Coronaries w/Grafts Sedation Charges Moderate Sedation up to 15 minutes PCI Procedure Coronary Stent Coronary Stent Initial Hemochron ACT Test Procedure Description Procedure Date Procedure Date: 03/12/2019 Procedure Start Time: 11:05 Procedure End Time: 11:29 Procedure Staff Name Function Rickey Ellington MD Performing Physician Pastora Rebolledo RT Monitor Haydee Mello RT Monitor Rj Dahl RN Nurse Leonela Don RT Scrub [place] Davis RT Scrub Indication Unstable angina Procedure Data Cath Procedure Fluoroscopy Diagnostic fluoroscopy Total fluoroscopy Time: 5.9 time: 5.9 min min Diagnostic fluoroscopy Total fluoroscopy dose: 316 dose: 316 mGy mGy Contrast Material Contrast Material Type Amount (ml) Isovue 370 106 Entry Location Entry Primary Successful Side Size Upsize Upsize Entry Closure Succes sful Closure Location (Fr) 1 (Fr) 2 (Fr) Remarks Device Remarks Femoral Right 5 Fr Exoseal artery Estimated blood loss: 10 ml Diagnostic catheters Device Type Used For End Catheter Placement DIAGNOSTIC AR2 MOD 5 Fr Procedure catheter ([id number]) MULTIPACK Pigtail 5 Fr Procedure catheter MULTIPACK JL 4.0 5Fr Procedure catheter MULTIPACK 3DRC 5Fr Procedure catheter DIAGNOSTIC AR2 MOD 5 Fr Procedure catheter ([id number]) Procedure Complications No complications Procedure Medications Medication Administration Route Dosage 0.9% NaCl I.V. 100 ml/hr Oxygen etCO2 Nasal cannula 2 l/min Heparin Flush Bag added to field 2 bags (1000units/500ml NS) Lidocaine 2% added to field 20 Versed I.V. 2 mg Fentanyl I.V. 100 mcg Versed I.V. 1 mg Fentanyl I.V. 50 mcg Heparin Bolus I.V. 4000 units Hemodynamics Rest BSA: 1.69 (m2) HGB: 11.7 (g/dl) O2 Consumption: Estimated: 175.23 (ml/min) O2 Co nsumption indexed: Estimated:103.69 (ml/min/m) Heart Rate: 81 (bpm) Snapshots Pre Cath Intra NCS Post Cath Vital Signs Time Heart Resp SPO2 etCO2 NIBP (mmHg) Rhythm Pain Sedation Rate (ipm) (%) (mmHg) Status Level (bpm) 10:57:34 84 11 98 0 145/95(107) NSR 0 (11) 10(A) , No pain 11:01:42 89 17 100 44.8 123/83(119) NSR 0 (11) 10(A) , No pain 11:07:59 98 14 99 54.6 109/78(108) NSR 0 (11) 10(A) , No pain 11:12:01 102 18 96 54.6 117/89(114) NSR 0 (11) 9(A) , No pain 11:16:56 102 16 98 49.3 116/79(112) NSR 0 (11) 9(A) , No pain 11:21:04 97 13 99 50.8 109/65(82) NSR 0 (11) 9(A) , No pain 11:25:13 97 14 100 50.9 109/61(78) NSR 0 (11) 9(A) , No pain 11:29:21 94 6 100 40.4 116/64(81) NSR 0 (11) 9(A) , No pain Medications Time Medication Route Dose Verified Delivered Reason Notes Effectiveness by by 10:58:26 0.9% NaCl I.V. 100 Rj Rj Per physician ml/hr Hesham Dahl RN RN 10:58:45 Oxygen etCO2 2 Rj Rj for low 02 sats Nasal l/min Hesham Dahl cannula RN RN 10:58:57 Heparin Flush added 2 Rj Rj used for Bag to bags Hesham Dahl procedure (1000units/500ml field OSWALD RN NS) 10:59:10 Lidocaine 2% added 20ml Rj Rj for local to vial Hesham Dahl anesthetic field DAREK OSWALD 11:06:52 Versed I.V. 2 mg Rj Rj for sedation Hesham Dahl RN RN 11:07:00 Fentanyl I.V. 100 Rj Rj for sedation mcg Hesham Dahl RN, RN 11:08:16 Versed I.V. 1 mg Rj Rj for sedation Hesham Dahl RN, RN 11:08:22 Fentanyl I.V. 50 Rj Rj for sedation mcg Lorigan Lorigan RN RN 11:16:27 Heparin Bolus I.V. 4000 Rj De La Rosa for units Hesham Dahl anticoagulation RN family health nurse practitioner Log Time Note 10:35:05 Procedure Status Urgent Heart Cath (IP). 10:35:20 Pastora Rebolledo RT(R) sent for patient. Start room use. 10:35:22 Time tracking: Regular hours (M-F 7:00 - 5:00) 10:35:27 Plan of Care:Hemodynamics will remain stable., Cardiac rhythm will remain stable., Comfort level will be maintained., Respiratory function will remain adequate., Patient/ family verbilizes understanding of procedure., Procedure tolerated without complication., Recovers from procedure without complications.. 10:35:34 Admit Source: Other 10:37:00 Lab Result : BUN 9 mg/dl 10:37:00 Lab Result : Creatinine 1.2 mg/dl 10:37:00 Lab Result : Troponin l 0.017 ng/ml 10:37:00 Lab Result : Hemoglobin 11.7 g/dl 10:37:00 Lab Result : eGFR NONAFRICAN 51 ml/min 10:37:00 Lab Result : Hematocrit 36.1 % 10:37:04 Lab results completed and on chart. 10:39:57 Informed consent obtained and on chart 10:40:09 Patient Height : 63 inches 10:40:16 Patient Weight : 145.29 lbs 10:40:25 Arrival Date: 03/12/2019 12:00:00 AM 10:40:30 Insurance Payor : Medicaid 10:46:55 Patient allergic to Other allergyIodinated Contrast-Coded Penicillin-Coded Codeine 10:47:08 Diagnostic Cath Status : Elective 10:47:17 Indication : Unstable angina 10:49:55 Stress Test: no; N/A ? 10:50:02 Risk of Mortality: .1 10:50:05 Risk of blood transfusion: .6 10:50:09 Risk of АНДРЕЙ: 1.2 10:50:19 Patient received from Med II to CCL 1 Alert and oriented. Tansferred to table in Supine position. 10:50:20 Warm blankets applied, and chanel hugger turned on for patient comfort. 10:50:21 Correct patient and procedure confirmed by team. 10:50:29 ACC Patient presents with Unstable Angina CCS Anginal Class 2--Slight limitation of ordinary activity. 10:50:49 H&P Date Dictated: 03/12/2019 Within 30 days and on chart.. 10:50:52 Pre-op teaching completed and patient verbalized understanding. 10:50:55 Family in patients room. 10:50:57 Patient NPO since Midnight. 10:50:59 Is the patient allergic to Iodine/contrast media? Yes. 10:51:02 Was the patient premedicated? Yes 10:51:04 Is patient on blood thinner?Yes 10:51:08 ACC The patient was administered the following blood thiners within the last 24 hours: ACCPlavix 10:51:13 Patient diabetic? Yes. 10:51:15 If diabetic: On Metformin? Yes 10:51:19 If on Metformin: Last Dose? 03/12/2019 10:51:34 Patient not . Patient has had hysterectomy. 10:51:41 Previous problem with sedation/anesthesia? No ? 10:51:42 Snore? Yes 10:51:45 Sleep apnea? Yes 10:51:47 Deviated septum? No 10:51:48 Opens mouth fully? Yes 10:51:49 Sticks out tongue? Yes 10:51:53 Airway obstruction? No ? 10:51:59 Dentures? Yes in tight 10:54:38 IV patent on arrival in right forearm with 0.9% NaCl at [facility]. 10:54:42 Patient pain scale 0/10 ?. 10:54:47 Pre procedure: right dorsailis pedis pulse 2+ Normal; easily identifiable; not easily obliterated 10:56:29 Right groin area was prepped with chlora-prep and draped in sterile fashion 10:56:30 Alarms reviewed by R. N. 10:56:31 Sharps counted by scrub and verified by R.N. 10:56:35 ECG and BP/O2 sat monitors applied to patient. 10:56:37 Vital chart was started 10:56:40 Baseline sample Acquired. 10:56:44 Rhythm: sinus rhythm 10:56:46 Full Disclosure recording started 10:57:27 Procedure type changed to Cath procedure, Diagnostic procedure, LHC, LHC w/Coronaries w/Grafts, Sedation Charges, Moderate Sedation up to 15 minutes, PCI procedure, Coronary Stent, Coronary Stent Initial, Hemochron ACT Test 10:58:26 0.9% NaCl 100 ml/hr I.V. was administered by Rj Dahl RN; Per physician; Verbal order read back and verified. 10:58:45 Oxygen 2 l/min etCO2 Nasal cannula was administered by Rj Dahl RN; for low 02 sats; Verbal order read back and verified. 10:58:57 Heparin Flush Bag (1000units/500ml NS) 2 bags added to field was administered by Rj Dahl RN; used for procedure; Verbal order read back and verified. 10:59:10 Lidocaine 2% 20ml vial added to field was administered by Rj Dahl RN; for local anesthetic; Verbal order read back and verified. 11:00:59 Use device set Femoral Dx 11:01:01 ACIST Syringe (56774) opened to sterile field. 11:01:02 Bag Decanter (2002S) opened to sterile field. 11:01:03 Medline Cath Pack ([id number]) opened to sterile field. 11:01:04 ACIST Hand Control (03173) opened to sterile field. 11:01:05 ACIST Manifold (07774) opened to sterile field. 11:01:06 Tegaderm 4 x 4 (1626W) opened to sterile field. 11:01:08 SHEATH 5FR Lenox (MSR403) opened to sterile field. 11:01:09 EMERALD Guide Wire (266-737) opened to sterile field. 11:01:13 DIAGNOSTIC Multipack 5Fr catheter set (JS2401) opened to sterile field. 11::59 --------ALL STOP TIME OUT------ 11:02:00 Final Timeout: patient, procedure, and site verified with staff and physician. All members of the team are in agreement. 11:02:02 Right groin site verified by team. 11:02:06 Fire Safety Assessment: A--An alcohol-based skin anteseptic being used preoperatively., C--Open oxygen or nitrous oxide is being used., D--An ESU, laser, or fiber-optic light is being used. 11:02:11 Physical assessment completed. ASA score P 2 - A patient with mild systemic disease as per Rickey Ellington MD. 11:02:17 3a) 45-59 Moderately reduced kidney function. 11:02:21 Maximum allowable contrast dose (3.7 X eGFR X 0.75)142 ml. 11:04:06 Sedation plan: IV Moderate Sedation Medication:Versed, Fentanyl 11:04:11 Procedure started. 11:04:23 Zero performed for pressure channel P1 11:05:01 Local anesthetic to right femoral artery with Lidocaine 2% by Rickey Ellington MD.INITIAL ACCESS ONLY 11:06:52 Versed 2 mg I.V. was administered by Rj Dahl RN; for sedation; Verbal order read back and verified. 11:06:59 A DIAGNOSTIC AR2 MOD 5 Fr catheter ([id number]) was advanced over the wire and used for Procedure. 11:07:00 Fentanyl 100 mcg I.V. was administered by Rj Dahl RN; for sedation; Verbal order read back and verified. 11:07:23 A 5 Fr sheath was inserted into the Right Femoral artery 11:08:16 Versed 1 mg I.V. was administered by Rj Dahl RN; for sedation; Verbal order read back and verified. 11:08:22 Fentanyl 50 mcg I.V. was administered by Rj Dahl RN; for sedation; Verbal order read back and verified. 11:08:48 A MULTIPACK Pigtail 5 Fr catheter was advanced over the wire and used for Procedure. 11:08:59 LV gram done using SALVADOR 11:09:03 Injector settings: Ml/sec: 10, Volume: 20, 11:09:20 EF : 60 % 11:09:27 Catheter removed. 11:09:39 A MULTIPACK JL 4.0 5Fr catheter was advanced over the wire and used for Procedure. 11:10:34 LCA angiography performed. 11:11:30 Catheter removed. 11:12:01 A MULTIPACK 3DRC 5Fr catheter was advanced over the wire and used for Procedure. 11:12:13 ZARAGOZA to LAD angiography performed. 11:12:54 RCA angiography performed. 11:13:49 Catheter removed. 11:14:12 A DIAGNOSTIC AR2 MOD 5 Fr catheter ([id number]) was advanced over the wire and used for Procedure. 11:14:29 INFLATOR Merit BasixCompak (DG5976) opened to sterile field. 11:14:31 CHOICE PT Extra Support 182cm wire ([id number]) opened to sterile field. 11:14:32 GUIDE 5FR EBU 3.5 catheter ([id number]) opened to sterile field. 11:15:44 SVG to RCA angiography performed. 11:15:54 Catheter removed. 11:15:58 Proceeding to intervention. 11:16:14 5 Fr ebu 3.5 guide catheter was inserted over the wire 11:16:27 Heparin Bolus 4000 units I.V. was administered by Rj Dahl RN; for anticoagulation; Verbal order read back and verified. 11:16:36 CHOICE ES 182 wire advanced. 11:17:42 Wire advanced across lesion. 11:18:58 Pre PCI Site: Rampart mLAD has 90% stenosis. 11:19:29 Place stent Inflation Number: 1 A MAXI RX 3.0 x 12 stent ([id number]) was prepped and advanced across the Mid LAD . The stent was deployed at 11 MARY for 0:00 (min:sec) . 11:20:04 Stent catheter was removed intact over wire. 11:21:53 Place stent Inflation Number: 2 A MAXI RX 2.5 x 08 stent ([id number]) was prepped and advanced across the Mid LAD . The stent was deployed at 13 MARY for 0:00 (min:sec) . 11:22:10 Stent catheter was removed intact over wire. 11:22:11 Wire removed. 11:22:22 Guide catheter removed. 11:22:37 EXOSEAL 5Fr (EX500) opened to sterile field. 11:22:47 Sheath removed intact; hemostasis achieved with Exoseal to the Right Femoral artery. 11:22:49 Procedure ended.(Physican Out) 11:23:05 ACT drawn and resulted at 00 seconds. (normal therapeutic range 180-240 seconds). 11:23:17 Fluoroscopy time 05.90 minutes. 11:23:23 Flurop Dose total: 316 11:23:23 Fluoroscopy dose: 316 mGy 11:23:31 Dose Area Product 21503 mGy/cm. 11:23:53 Contrast amount:Isovue 370 106ml. 11:23:56 Maximum allowable dose exceeded? No. 11:23:57 Sharps counted by scrub and verified by R.N. 11:24:05 Post-op/insertion site Right Femoral artery dressed using a 4 x 4 and Tegaderm. 11:24:10 Post right femoral artery:stable, soft, clean and dry 11:24:13 Post Procedure Pulses reassessed and unchanged 11:24:16 Post procedure: right dorsailis pedis pulse 2+ Normal; easily identifiable; not easily obliterated. 11:24:20 Post-procedure physical assessment completed. ASA score P 2 - A patient with mild systemic disease as per Rickey Ellington MD. 11:24:24 Post procedure rhythm: unchanged. 11:24:27 Estimated blood loss: 10 ml 11:24:29 Post procedure instruction explained to patient.Patient verbalizes understanding. 11:24:30 Patient needs reinforcement of post procedure teaching. 11:28:50 Procedure and supply charges have been captured, reviewed, submitted and are correct. 11:28:55 Procedure Complication : No complications 11::58 Vital chart was stopped 11:29:04 [facility] Findings: MVD- PCI performed (see procedure note) 11:29:06 Operative report dictated upon procedure completion. 11:29:07 See physician's report for complete and final results. 11:29:10 Report given to Pre/Post Procedure Room. 11:29:15 Patient transfered to Pre/Post Procedure Room with Bed. 11:29:21 Procedure ended. 11:29:21 Full Disclosure recording stopped 11:29:32 ACC-PCI Only Patient was given prescriptions, or instructed by Rickey Ellington MD to start/continue the following medications upon discharge: Plavix 11:29:34 End room use (Document Last) 11:29:47 End room use (Document Last) 11:30:10 End room use (Document Last) Intervention Summary Intervention Notes Time ActionType Lesion and Equipment Used Action# Pressure Duration Attributes 11:19:29 Place stent Mid LAD MAXI RX 3.0 x 1 11 00:00 12 stent ([id number]) 11:21:53 Place stent Mid LAD MAXI RX 2.5 x 2 13 00:00 08 stent ([id number]) Device Usage Item Name Manufacture Quantity Catalog Number Hospital Part Current M inimal Lot# / Charge Number Stock Stock Serial# Code ACIST Syringe Acist 1 36014 923470 498585 028668 2 0 (05511) Medical Systems Inc Bag Decanter Microtek 1 676730 00299 469627 5 () Medical Inc. Medline Cath Medline 1 [id number] 609147 45824 856491 5 Pack ([id number]) ACIST Hand Acist 1 33102 901136 465021 940744 5 Control Medical (90557) Systems Inc ACIST Manifold Acist 1 52844 360402 564729 216388 5 (78231) Medical Systems Inc Tegaderm 4 x 4 3M 1 1626W 516089 942882 294882 5 (1626W) SHEATH 5FR Terumo 1 FGV522 810139 913368 510992 5 [place] (VPA425) EMERALD Guide Cardinal 1 502-455 914369 317686 887005 5 Wire (502-455) Health DIAGNOSTIC Cardinal 1 AS8697 370576 97553 496782 3 0 Multipack 5Fr Health catheter set (NN9214) DIAGNOSTIC AR2 Cardinal 2 [id number] 871636 813571 962263 2 0 MOD 5 Fr Health catheter (251947C) MULTIPACK Cardinal 1 122689 5 Pigtail 5 Fr Health catheter MULTIPACK JL Cardinal 1 539403 5 4.0 5Fr Health catheter MULTIPACK 3DRC Cardinal 1 377560 5 5Fr catheter Health INFLATOR Merit Merit 1 ON6891 028472 516730 405621 1 5 Abcellute (UT1838) CHOICE PT [place] 1 [id number] 049458 087921 348438 5 Extra Support Scientific 182cm wire ([id number]) GUIDE 5FR EBU Medtronic 1 [id number] 606672 905043 155391 1 3.5 catheter (SA9QEQ77) MAXI RX 3.0 x Medtronic 1 [id number] 679781 4832733 567309 5 [id number] 12 stent ([id number]) MAXI RX 2.5 x Medtronic 1 [id number] 127641 6692130 954377 5 [id number] 08 stent ([id number]) EXOSEAL 5Fr Cardinal 1 EX500 332133 705496 509484 1 0 (EX500) Health Signature Audit [place] Stage Time Signature Unsigned Intra-Procedure 03/12/2019 Haydee Mello 11:29:47 AM RT(R) Intra-Procedure 03/12/2019 Rj 11:30:10 AM Hesham OSWALD Intra-Procedure 03/12/2019 Rickey Ellington 11:30:45 AM [facility] [address] [place] [address]
--- NOTE | ~2019-03-11 | DS ---
PATIENT:SHARON BELTRE :71 MEDICAL RECORD: [id number] DISCHARGE SUMMARY ADMISSION DATE: 03/11/19 DISCHARGE DATE: 03/12/19 DISCHARGE DIAGNOSES: 1. Unstable angina. 2. Coronary artery disease. 3. Percutaneous transluminal coronary angioplasty stent left anterior descending this admission. 4. Status post coronary bypass graft surgery. 5. Hypertension. 6. Hyperlipidemia. HISTORY: Mrs. 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 She will follow up with [facility] in 1 month. TRANSINT:[id number] Voice Confirmation ID: [id number] DOCUMENT ID: [id number] TRACIE TROY MD CC: [id number] DICTATION DATE: 03/12/19 1125 MANUFACTURING QUALITY MANAGER: 03/12/19 2353 DEP CLI 03/12/19 [place] [id number] [place] [id number]
--- NOTE | ~2019-03-11 | HP ---
PATIENT: SHARON BELTRE MEDICAL RECORD: [id number] ACCOUNT: [id number] LOCATION:[address] : 71 ADMISSION DATE: 03/11/19 PCP: [facility] HISTORY AND PHYSICAL EXAMINATION DIAGNOSES: 1. Unstable angina. 2. Coronary artery disease. 3. Status post coronary artery bypass graft surgery. 4. Status post multivessel percutaneous transluminal coronary angioplasty stent. 5. Hypertension. 6. Hyperlipidemia. 7. Noninsulin-dependent diabetes. HISTORY OF PRESENT ILLNESS: Mrs. Beltre presents with increasing episodes of chest discomfort. She has had chronic discomfort. She has multivessel coronary artery disease. Last cardiac intervention was in November. Her chest discomfort now has been exacerbating for the past week in an escalating fashion. She is class IV despite maximal medical therapy. PHYSICAL EXAMINATION: CONSTITUTIONAL/GENERAL APPEARANCE: Well nourished, well developed, appears stated age. EYES: Lids and conjunctivae noninjected. No discharge. No pallor. ENT: Lips within normal limit. No cyanosis. No pallor. NECK: Carotid arteries, bilateral normal upstroke. No bruits. No thrills. No jugular venous pressure or distention. CERVICAL LYMPH NODES: Nontender. Nonenlarged. THYROID: Not enlarged. No nodules. CARDIOVASCULAR: Precordial exam, nondisplaced. No heaves or pericardial thrills. Rate and rhythm, regular. Heart sounds, normal S1, normal S2. No S3, no gallop, no rub. Systolic murmur, not heard. Diastolic murmur, not heard. RESPIRATORY: Respiratory effort, unlabored. Normal curvature. No thoracic deformity. No chest wall tenderness. Percussion, resonant. Auscultation, clear. No wheezes, no rales, no rhonchi. ABDOMEN: Soft, nondistended, nontender. No abdominal pain, no vomiting and normal appetite. MUSCULOSKELETAL: No joint tenderness, normal gait, normal tone. SKIN: Warm and dry. OVERALL IMPRESSION: Chest pain compatible with angina despite maximal medical therapy with continued chest pain. We will proceed with coronary angiography. Further care depends upon the findings of the angiography. TRANSINT:[id number] Voice Confirmation ID: [id number] DOCUMENT ID: [id number] HISTORY AND PHYSICAL [id number] CHANDLERSHARON CROUCH TRACIE TROY MD CC: [id number] DICTATION DATE: 03/11/19 1655 STORE DELI MANAGER: 03/11/19 1713 [facility] [address] [address] [place] [address]
--- NOTE | ~2019-03-11 | OP ---
PATIENT NAME: SHARON APONTE MEDICAL RECORD: [id number] :71 LOCATION:[address] ADMISSION DATE: SURGEON: TRACIE TROY MD DATE OF OPERATION: 03/12/2019 PROCEDURES: 1. PTCA stent LAD. 2. Left heart catheterization. 3. Selective coronary angiography. 4. ZARAGOZA angiography. 5. Vein graft angiography. INDICATION: Unstable angina. PROCEDURE IN DETAIL: After informed consent was obtained and after a detailed description of the risks, benefits as well as alternative therapies, the patient elected to proceed with angiogram and angioplasty. The right femoral area was prepped and draped in normal sterile fashion. Right femoral artery was cannulated via modified Seldinger technique with placement of 6-Guinean sheath. All catheters exchanged through this sheath. FINDINGS: Left ventriculogram was performed in standard 30-degree SALVADOR view, reveals good cardiac wall motion, ejection fraction estimated at 60%. SELECTIVE CORONARY ANGIOGRAPHY: 1. Left main is with no significant angiographic disease. 2. Left anterior descending has 90% stenosis proximally. This leads into a large septal security patrol officer. The LAD is then totally occluded after this. 3. ZARAGOZA to the distal LAD is widely patent. Distal LAD is widely patent. 4. Left circumflex is totally occluded. 5. Vein graft to circumflex is totally occluded. 6. The right coronary has high-grade stenosis at the ostium. 7. Vein graft to the right coronary is widely patent. PTCA STENT OF THE PROXIMAL LAD: Stents used were 3.0 x 12 and 2.5 x 8, both Yohannes stents. Result was 0% residual stenosis. OVERALL IMPRESSION: Successful percutaneous transluminal coronary angioplasty stent of the left anterior descending going from 90% to 95% initial stenosis leading into a large septal security patrol officer to 0% residual stenosis. TRANSINT:[id number] Voice Confirmation ID: [id number] DOCUMENT ID: [id number] TRACIE TROY MD CC: [id number] DICTATION DATE: 03/12/198 THIMBLE PRESS OPERATOR: 03/12/19 [id number] [place] [address]
[~2019-03-11 16:23] MED LIST changes: +NITROSTAT0.6 MG; +NOVOLOG100 UNIT/1 SC
[2019-03-11 16:46] LABS: BASOPHILS 0.2 % (0-2); EOSINOPHILS 1.6 % (0-7); HEMATOCRIT 36.4 % (36.0-48.0); HEMOGLOBIN 11.9 g/dL (12-16); IMMATURE GRANULOCYTES 0.2 % (0-5); LYMPHOCYTES 44.5 % (15-50); MCH 28.1 pg (26.0-34.0); MCHC 32.7 g/dL (31.0-37.0); MCV 86.1 fL (80.0-100.0); MEAN PLATELET VOLUME 10.2 fL (7.4-10.4); MONOCYTES 7.7 % (2-11); NEUTROPHILS 45.8 % (40-80); PLATELET COUNT 305 10x3/uL (130-400); RBC 4.23 10x6/uL (4.00-5.40); WBC 6.2 10x3/uL (4.8-10.8)
[2019-03-11 16:59] LABS: ALKALINE PHOSPHATASE 144 U/L (46-116); BILIRUBIN - TOTAL 0.37 mg/dL (0.2-1.3); CALCIUM 9.2 mg/dL (8.5-10.1); CARBON DIOXIDE 23.7 mmol/L (21.0-32.0); CKMB 0.2 U/L (0.0-3.6); CREATINE KINASE 67 UL (21-215); PROTEIN - SERUM 7.6 g/dL (6.4-8.2); UREA NITROGEN 9 mg/dL (7-18); eGFR NON AFRICAN AMERICAN 63 mL/min (90-120)
[2019-03-11 17:15] LABS: ALBUMIN 3.4 g/dL (3.4-5.0); ALT (SGPT) 19 U/L (10-68); CALC OSMOLALITY 285 mosm/kg (275-300); CHLORIDE - SERUM 102 mmol/L (98-107); GLUCOSE 293 mg/dL (74-106); POTASSIUM - SERUM 4.1 mmol/L (3.5-5.1); SODIUM 138 mmol/L (136-145); TROPONIN-I < 0.017 ng/mL (0.000-0.060)
[2019-03-11] MEDS ORDERED: PEPTO-BISMOL262 M1 PO (17:38)
--- NOTE | 2019-03-11 17:44 | NUR ---
PT ARRIVED VIA WHEELCHAIR TO ROOM 2120. PT STATES SHE IS HUNGRY. TRAY ALREADY ORDERED. PT ORIENTED TO ROOM. MONITOR ON. IV NOTED TO LEFT AC SL. RR EVEN AND UNLABORED. PT DENIES FUETHER NEEDS AT THIS TIME. NO DISTRESS NOTED. CALL 8T WITHIN REACH. BED IN LOWEEST POSITION. WILL CONTINUE TO MONITOR.
[2019-03-11 17:46] VITALS: BP 150/77; Ht 160 cm; Wt 65.9 kg
--- NOTE | 2019-03-11 19:00 | NUR ---
EVENING ROUNDS COMPLETE. PT SITTING UP IN BED, NO SIGNS OF DISTRESS. AAOX4. PT DENIES ANY NEEDS AT THIS TIME. TEACHING ON NPO AFTER MN, PT VOICED UNDERSTANDING. CL IN REACH, BED IN LOWEST POSITION.
[2019-03-11 20:35] VITALS: BP 115/68
[2019-03-11 23:02] LABS: UREA NITROGEN 10 mg/dL (7-18)
[2019-03-11 23:03] LABS: CALCIUM 8.8 mg/dL (8.5-10.1); CHLORIDE - SERUM 101 mmol/L (98-107); POTASSIUM - SERUM 4.1 mmol/L (3.5-5.1); SODIUM 135 mmol/L (136-145)
[2019-03-11 23:05] LABS: CALC OSMOLALITY 282 mosm/kg (275-300); CARBON DIOXIDE 29.8 mmol/L (21.0-32.0); CREATININE - SERUM 1.4 mg/dL (0.6-1.3); GLUCOSE 349 mg/dL (74-106); TROPONIN-I < 0.017 ng/mL (0.000-0.060); eGFR NON AFRICAN AMERICAN 43 mL/min (90-120)
[2019-03-12 00:30] VITALS: BP 157/70
[2019-03-12 04:30] VITALS: BP 145/82
[2019-03-12 07:03] LABS: CALC OSMOLALITY 283 mosm/kg (275-300); CALCIUM 8.8 mg/dL (8.5-10.1); CARBON DIOXIDE 26.2 mmol/L (21.0-32.0); CHLORIDE - SERUM 100 mmol/L (98-107); CREATININE - SERUM 1.2 mg/dL (0.6-1.3); POTASSIUM - SERUM 3.9 mmol/L (3.5-5.1); SODIUM 137 mmol/L (136-145); TROPONIN-I < 0.017 ng/mL (0.000-0.060); UREA NITROGEN 9 mg/dL (7-18); eGFR NON AFRICAN AMERICAN 51 mL/min (90-120)
[2019-03-12 07:04] LABS: BASOPHILS 0.2 % (0-2); EOSINOPHILS 1.8 % (0-7); HEMATOCRIT 36.1 % (36.0-48.0); HEMOGLOBIN 11.7 g/dL (12-16); LYMPHOCYTES 42.9 % (15-50); MCH 27.7 pg (26.0-34.0); MCHC 32.4 g/dL (31.0-37.0); MCV 85.5 fL (80.0-100.0); MEAN PLATELET VOLUME 10.6 fL (7.4-10.4); MONOCYTES 7.2 % (2-11); NEUTROPHILS 47.9 % (40-80); PLATELET COUNT 348 10x3/uL (130-400); RBC 4.22 10x6/uL (4.00-5.40); RDW 13.1 % (11.5-14.5)
[2019-03-12 07:08] LABS: GLUCOSE 288 mg/dL (74-106)
--- NOTE | 2019-03-12 07:15 | NUR ---
ASSESSMENT DONE. DENIES NEEDS
[2019-03-12 09:24] VITALS: BP 183/99
--- NOTE | 2019-03-12 09:59 | NUR ---
I have reviewed this patient and I concur with the Shift Assessment completed by the Licensed Practical Nurse today this shift.
--- NOTE | 2019-03-12 10:48 | NUR ---
TO APPLICATION ADMINISTRATOR PER BED
--- NOTE | 2019-03-12 11:40 | NUR ---
PT ARRIVED BY STRETCHER. PLACED ON MONITORS. ASSESSMENT COMPLETED. VSS. CALL LIGHT WITHIN REACH. PT HARD TO AROUSE FROM SLEEP, BUT DOES RESPOND TO PAINFUL STIMULI AND THEN GO RIGHT BACK TO SLEEP. VSS. NO FAMILY AVAILABLE AT THIS TIME.
[2019-03-12] MEDS ORDERED: BAYER CHEWABLE81 MG PO (11:47)
--- NOTE | 2019-03-12 11:55 | NUR ---
RIGHT GROIN DRESSING C/D/I. NO S/S OF HEMATOMA NOTED. PT RESTING COMFORTABLY. VSS. CALL LIGHT WITHIN REACH.
--- NOTE | 2019-03-12 12:25 | NUR ---
RIGHT GROIN DRESSING C/D/I. NO S/S OF HEMATOMA NOTED. PT RESTING COMFORTABLY AT THIS TIME.
--- NOTE | 2019-03-12 13:00 | NUR ---
RIGHT GROIN DRESSING C/D/I. NO S/S OF HEMATOMA NOTED. CALL LIGHT WITHIN REACH. PT STILL IN SUPINE POSITION. RESTING COMFORTABLY. MORE EASILY AROUSED FROM SLEEP. VSS.
--- NOTE | 2019-03-12 13:30 | NUR ---
RIGHT GROIN DRESSING C/D/I. NO S/S OF HEMATOMA NOTED. CALL LIGHT WITHIN REACH. VSS. PT EASILY AROUSED FROM SLEEP AT THIS TIME.
--- NOTE | 2019-03-12 14:00 | NUR ---
RIGHT GROIN DRESSING C/D/I. NO S/S OF HEMATOMA NOTED. CALL LIGHT WITHIN REACH. VSS.
--- NOTE | 2019-03-12 14:30 | NUR ---
RIGHT GROIN DRESSING C/D/I. NO S/S OF HEMATOMA NOTED. CALL LIGHT WITHIN REACH. VSS. PT'S HEAD OF BED INC TO 30 DEGREES. TOLERATED WELL. SET UP WITH SANDWICH TRAY AND DRINK. DENIES NAUSEA. WILL CONTINUE TO MONITOR.
--- NOTE | 2019-03-12 15:05 | NUR ---
PT C/O PAIN AT GROIN SITE. SHE IS NOW MORE ALERT AND AWAKE. SHE STATES IT IS A 10/17. ORDERS RECEIVED FOR NORCO X 1. CALLED OFFICE BECAUSE THE PATIENT IS WANTING AN RX TO TAKE HOME WITH HER FOR PAIN MEDICATION, BUT DR. TROY IS IN [place] AND NOT IN [place] TO WRITE A PRESCRIPTION. I INFOMED PT SHE COULD TRY AN IBUPROFEN OR TYLENOL AFTER ARRIVAL HOME. SHE REFUSES AND STATES THAT THAT WILL NOT WORK. CALLED [facility] AND HE WILL WRIST A PRESCRIPTION FOR 4 NORCOS UNTIL SHE IS ABLE TO TALK GET IN TOUCH WITH DR. TROY.
--- NOTE | 2019-03-12 15:13 | NUR ---
PT GIVE RX FROM [facility] FOR # 6 NORCO . PT REPORTS THAT SHE CAN TAKE NORCOS AND IT DOES NOT BOTHER HER. SHE STATES "I TAKE THEM ALL THE TIME AND I DON'T HAVE ANY PROBLEMS".
--- NOTE | 2019-03-12 15:22 | NUR ---
PIV D/C'D WITH CATH TIP INTACT. TOLERATED WELL. VSS. RIGHT GROIN DRESSING C/D/I. NO S/S OF HEMATOMA NOTED. PT INSTRUCTED TO GET UP AND DRESSED. SHE STATES SHE DOESN'T NEED ANY ASSISTANCE. SHE HAS CALLED FOR A RIDE HOME. CALL LIGHT WITHIN REACH AND PT INSTRUCTED TO CALL IF SHE NEEDS ANY HELP.
--- NOTE | 2019-03-12 15:25 | NUR ---
PT ABMULATED TO RESTROOM. VOIDED WITHOUT DIFFICULTY. STEADY GAIT NOTED. PT REPORTS PAIN IS BETTER. RATES IT A 5/10 AT THIS TIME. DISCUSSED DISCHARGE INSTRUCTIONS WITH PT. SHE VOICED UNDERSTANDING.
--- NOTE | 2019-03-12 16:00 | NUR ---
PT'S RIDE ARRIVED. PT TAKEN OUT TO VEHICLE BY WHEELCHAIR. NO S/S OF DISTRESS NOTED. ALL BELONGINGS AND PAPERWORK IN HAND.
[2019-03-13] MEDS ORDERED: LISINOPRIL20 MG PO (06:15)
[2019-03-13] MEDS ORDERED: INDOCIN25 MG PO (16:45)
== END 2019-03-12 16:00 | disposition home or self-care (01) ==
LOC: D.M2 16:23 → D.OPS 16:23 → EDSTATUS 17:05 → D.M2 03-12 10:52 → D.SDCHOLD 03-12 10:52 → D.CLR 03-12 11:39 → D.OPS 03-12 16:00
PROVIDERS: Family Medicine; ATTEND Internal Medicine Interventional Cardiology
DX: I20.0 Unstable angina (principal); I25.110 Atherosclerotic heart disease of native coronary artery with unstable angina pectoris; I10 Essential (primary) hypertension; Z95.5 Presence of coronary angioplasty implant and graft; Z95.1 Presence of aortocoronary bypass graft; E78.5 Hyperlipidemia, unspecified; E11.9 Type 2 diabetes mellitus without complications

== ENCOUNTER 2019-03-12 22:11 | Inpatient (IN) | payer MEDICAID ==
[~2019-03-12] VITALS: Ht 160 cm; Wt 63.6 kg
[~2019-03-12 22:11] MED LIST changes: +BAYER CHEWABLE81 MG PO; +PEPTO-BISMOL262 M1 PO
--- NOTE | 2019-03-12 23:02 | NUR ---
PT OBSERVED FLAILING AROUND IN BED. THIS NURSE ASKED PT TO STOP MOVING ARMS SO ACCURATE BP COULD BE OBTAINED. PT REFUSES STATING "YOU CAN TAKE IT AFTER THE NIRTO KICKS IN." THIS NURSE EDUCATED PT ABOUT NEEDING ACCURATE READING BEFORE NITRO ADMINISTRATION. PT CONTINUES TO FLAIL ARMS AROUND IN BED.
[2019-03-12 23:10] VITALS: BP 188/104
[2019-03-12 23:16] LABS: BASOPHILS 0 % (0-2); EOSINOPHILS 0 % (0-7); HEMATOCRIT 38.1 % (36.0-48.0); HEMOGLOBIN 11.8 g/dL (12-16); IMMATURE GRANULOCYTES 0.3 % (0-5); LYMPHOCYTES 15.6 % (15-50); MCH 27.8 pg (26.0-34.0); MEAN PLATELET VOLUME 10.3 fL (7.4-10.4); MONOCYTES 1.2 % (2-11); NEUTROPHILS 82.9 % (40-80); PLATELET COUNT 335 10x3/uL (130-400); RBC 4.24 10x6/uL (4.00-5.40); RDW 13.3 % (11.5-14.5)
[2019-03-12 23:22] LABS: MCV 89.9 fL (80.0-100.0); WBC 6.9 10x3/uL (4.8-10.8)
[2019-03-12 23:33] LABS: CARBON DIOXIDE 21.5 mmol/L (21.0-32.0); CHLORIDE - SERUM 88 mmol/L (98-107); SODIUM 123 mmol/L (136-145)
[2019-03-12 23:36] VITALS: BP 180/71
[2019-03-12 23:38] LABS: APTT 28.1 SECONDS (22.8-39.4); INR 0.99 (0.85-1.17); PROTIME 12.6 SECONDS (11.6-15.0)
[2019-03-12 23:57] LABS: ALBUMIN 3.5 g/dL (3.4-5.0); ALKALINE PHOSPHATASE 151 U/L (46-116); BILIRUBIN - TOTAL 0.31 mg/dL (0.2-1.3); CKMB 0.4 U/L (0.0-3.6); CREATINE KINASE 66 UL (21-215); MAGNESIUM - SERUM 1.5 mg/dL (1.8-2.4); TROPONIN-I 0.024 ng/mL (0.000-0.060)
[2019-03-13 00:03] LABS: ALT (SGPT) 62 U/L (10-68); CALC OSMOLALITY 295 mosm/kg (275-300); CREATININE - SERUM 2.1 mg/dL (0.6-1.3); GLUCOSE 922 mg/dL (74-106); POTASSIUM - SERUM 4.7 mmol/L (3.5-5.1); UREA NITROGEN 18 mg/dL (7-18); eGFR NON AFRICAN AMERICAN 27 mL/min (90-120)
[2019-03-13 00:04] LABS: KETONE - SERUM NEGATIVE (NEGATIVE)
[2019-03-13 00:30] VITALS: BP 165/101
[2019-03-13 00:31] LABS: APPEARANCE CLEAR (CLEAR); BILIRUBIN NEGATIVE (NEGATIVE); COLOR STRAW (YELLOW); GLUCOSE 1000 mg/dL (NEGATIVE); KETONE NEGATIVE (NEGATIVE); NITRITE NEGATIVE (NEGATIVE); PROTEIN NEGATIVE (NEGATIVE); SPECIFIC GRAVITY 1.005 (1.005-1.020); UROBILINOGEN NORMAL (NORMAL)
[2019-03-13 00:33] LABS: BACTERIA FEW /hpf (NEGATIVE); EPITHELIAL CELLS 0-5 /hpf (0-5); RED CELLS - URINE 0-5 /hpf (0-5); WHITE CELLS - URINE 0-5 /hpf (NEGATIVE)
[2019-03-13 01:39] VITALS: BP 164/92; Ht 160 cm; Wt 63.6 kg
[2019-03-13 01:42] LABS: UDS - AMPHET NEGATIVE QUAL (NEGATIVE); UDS - BARB NEGATIVE QUAL (NEGATIVE); UDS - BENZO POSITIVE QUAL (NEGATIVE); UDS - COCAINE NEGATIVE QUAL (NEGATIVE); UDS - OPIATE POSITIVE QUAL (NEGATIVE); UDS - PCP NEGATIVE QUAL (NEGATIVE); UDS - THC NEGATIVE QUAL (NEGATIVE)
--- NOTE | 2019-03-13 01:59 | NUR ---
CRITICAL LAB CALLED. GLUCOSE 699. FOLLOWED SLIDING SCALE GAVE 20 UNITS AND NOTIFIED JUAN MANUEL PERRY APN.
--- NOTE | 2019-03-13 02:02 | NUR ---
PATIENT IS UPSET WITH NURSE BECAUSE SHE IS NPO AND STATES SHE HAS NOT EATEN ALL DAY. SHE KEEPS REPEATING THIS IS NOT FAIR. PATIENT STATED SHE NEEDS NITRO OR PAIN MEDS. MORPHINE IS NOT AVAILABLE UNTIL 312. EXPLAINED TO PATIENT IS HAD NITRO BID ON HER CHEST. PATIENT STATES IT DRY. NITRO SL GIVEN.
[2019-03-13 04:00] VITALS: BP 240/150
--- NOTE | 2019-03-13 04:19 | NUR ---
PATIENT BLOOD SUGAR 516. ADMINISTERED 20 UNITS HUMULIN. NOTIFIED JUAN MANUEL PERRY APN.
--- NOTE | 2019-03-13 04:30 | NUR ---
PATIENT YELLING AT THAT SHE NEEDS TO RECORD EVERYTHING. BECAUSE I WAS TALKING ABOUT HER TO OTHER PEOPLE. AT THAT TIME I WAS TALKING TO JUAN MANUEL PERRY ABOUT HER CARE.
--- NOTE | 2019-03-13 04:31 | NUR ---
PATIENT FLAILING AROUND ON BED. PATIENT DEMANDING THAT SHE GET A NITRO. PATIENT TOLD THAT WE NEED TO GET HER BLOOD PRESSURE. PATIENT ASKED TO SIT AND HOLD HER ARMS STILL IF POSSIBLE SO THAT WE CAN GET A GOOD READ. ON PATIENTS RIGHT ARM BP 290/163 ON THE LEFT ARM SHANE MAP FLASHING OVER RANGE. TOOK MANUAL PRESSURE BP 240/150. APPLICATION INTERNSHIP PAGED AWAITING RETURN CALL. NITRO WAS GIVEN. PATIENT THROUGHING HERSELF BACK ON BED. PATIENT STATES SHE IS GOING TO RECORD EVERYTHING ON HER PHONE. HR 110.
--- NOTE | 2019-03-13 04:39 | NUR ---
REASSESSED PATIENT PAIN LEVEL. PATIENT STATED THAT THE MORPHINE DIDN'T WORK. SHE BELIEVES THAT WITH THE MORPHINE, THE NITRO AND THE ZOFRAN SHE IS COMING DOWN. WHEN ASKED IF SHE WAS STILL HAVING CHEST PAIN PATIENT LAUGHED AND STATED I WILL BE OK.
--- NOTE | 2019-03-13 04:45 | NUR ---
JUAN MANUEL PERRY APN CALLED BACK. ORDERED GIVEN FOR 0.2 [place] PO. RECHECK BP 1 HOUR. CALL IF SYSTOLIC IS ABOVE 180. HOME ECONOMICS EXPERT CALLED TO HAVE MEDICATION PULLED.
--- NOTE | 2019-03-13 05:20 | NUR ---
PATIENT UPSET YELLING FROM ROOM THAT I WAS TALKING TO OTHER PEOPLE ABOUT HER. AT THIS TIME I WAS TALKING TO AMERICAN SIGN LANGUAGE INTERPRETER ABOUT THE PATIENTS CARE.
--- NOTE | 2019-03-13 05:24 | NUR ---
CALLED EMS AND SPOKE WITH SUSANA ABOUT PATIENT CLAIMING TO HAVE LEFT HER PRESCRIPTIONS ON THE AMBULANCE. SHE SAID THE CREW THAT WAS ON THAT NIGHT WILL NOT BE BACK UNTIL MONDAY BUT SHE WOULD SPEAK WITH THE NEXT PRESCHOOL ASSISTANT DIRECTOR WHO COULD CONTACT THEM TO FIND OUT IF PRESCRIPTIONS WERE FOUND. CALLBACK NUMBER FOR EMS IS [phone]. LEFT OUR CALLBACK NUMBER.
--- NOTE | 2019-03-13 05:32 | NUR ---
PATIENT REFUSING NITRO PASTE. WELT WHEELER NOTIFIED ABOUT SITUATION.
--- NOTE | 2019-03-13 05:33 | NUR ---
PATIENT FLAILING ARMS AND THROWING HER SELF ALL OVER THE BED. PATIENT IS NOW TAKING OFF HER TELEMETRY. PATIENT CONTINUES TO ARGUE WITH STAFF.
--- NOTE | 2019-03-13 06:04 | NUR ---
APPROXIMATELY 0530 PATIENT SEEN RUNNING FROM HER ROOM. PATIENT YELLING "FUCK THIS PLACE THEY ARE GOING TO KILL ME." CALLED SECURITY AND DIE CASTING MACHINE MAINTAINER. PATIENT WAS FOUND IN FRONT OF [facility] FRONT ENTRANCE. PATIENT IS ORIENTED TO PERSON, TIME, AND PLACE. MULTIPLE ATTEMPTS WERE MADE FOR PATIENT TO RETURN TO UNIT SO THAT WE WERE ABLE TO TREAT HER. PATIENT STATED THAT SHE HAD CALLED 911 SO THAT SHE COULD BE TAKEN TO [facility]. PATIENT WAS TOLD BY ER NURSE THAT SHE COULD GO TO THE ICU AND BE PLACED ON A NITRO DRIP. PATIENT CONTINUED TO REFUSED. PATIENT REMOVED HER IV. PATIENT PLACED IN THE BACK OF AMBULANCE. SPOKE WITH TIE INSPECTOR ABOUT ALL THE MEDICATION THAT I HAD GIVEN TO HER. WE REFUSED TO GIVE HER ANYMORE NITRO. WHICH WE HAD GIVEN HER THE ALLOTED 3 DOSES OF NITRO. PATIENT WAS OFFERED THE NITRO BID BY ADRYAN MEAD RN WHEN ORIN DIE CASTING MACHINE MAINTAINER WAS ON FLOOR.PATIENT REFUSED. PATIENT WAS ASKED IF SHE WOULD SIGN THE AMA FORMS WHICH THE PATIENT REFUSED. CALLED AND SPOKE WITH JUAN MANUEL PERRY APN THAT PATIENT HAS LEFT.
[2019-03-13] MEDS ORDERED: LISINOPRIL20 MG PO (06:15)
--- NOTE | 2019-03-13 07:22 | MORECARE ---
CASE MANAGEMENT DISCHARGE SUMMARY PATIENT: SHARON APONTE UNIT: [id number] ADM DATE: 03/13/19 AGE: 43 : 71 SEX: F ROOM/BED: D.4445 AUTHOR: MARISA SUMMERS PHYSICIAN: REFERRING PHYSICIAN: HARSHA ROSENBAUM MD DATE OF SERVICE: 03/13/19 Discharge Plan Patient Name: SHARON APONTE [facility] [facility] 1975 Planned Disposition: Left Against Medical Advice Anticipated Discharge Date: 03/13/19 Discharge Date: 03/13/2019 Expected LOS: 1 Initial Reviewer: [email or web address] Initial Review Date: 03/13/2019 Generated: 03/13/19 8:22 am Patient Name: SHARON APONTE Page [id number] at 0722 All edits/amendments must be made on the electronic document DICTATION DATE: 03/13/19720 ELECTRON BEAM PHOTO MASK MAKER: EMILY 03/13/19720 RPT#: [id number] DC DATE:03/13/19 STATUS: DIS IN [facility] [address] [place] [address] END OF REPORT
[2019-03-13] MEDS ORDERED: INDOCIN25 MG PO (16:45)
== END 2019-03-13 06:51 | disposition left against medical advice (07) | DRG 305 ==
LOC: D.ER 22:11 → D.M2 03-13 00:23
PROVIDERS: Family Medicine; ADMIT Internal Medicine Nephrology; ATTEND Internal Medicine Nephrology
DX: I16.0 Hypertensive urgency (principal); R07.9 Chest pain, unspecified; E11.65 Type 2 diabetes mellitus with hyperglycemia; I25.10 Atherosclerotic heart disease of native coronary artery without angina pectoris; K21.9 Gastro-esophageal reflux disease without esophagitis

== ENCOUNTER 2019-03-13 06:12 | Inpatient (IN) | payer MEDICAID ==
[~2019-03-13] VITALS: Ht 160 cm; Wt 65.5 kg
[2019-03-13] MEDS ORDERED: LISINOPRIL20 MG PO (06:15)
[2019-03-13 07:24] LABS: BASOPHILS 0 % (0-2); EOSINOPHILS 0 % (0-7); HEMATOCRIT 34.3 % (36.0-48.0); HEMOGLOBIN 11.4 g/dL (12-16); IMMATURE GRANULOCYTES 0.2 % (0-5); LYMPHOCYTES 13.2 % (15-50); MCH 27.9 pg (26.0-34.0); MCHC 33.2 g/dL (31.0-37.0); MCV 83.9 fL (80.0-100.0); MEAN PLATELET VOLUME 10.4 fL (7.4-10.4); MONOCYTES 7.4 % (2-11); NEUTROPHILS 79.2 % (40-80); PLATELET COUNT 357 10x3/uL (130-400); RBC 4.09 10x6/uL (4.00-5.40); RDW 12.8 % (11.5-14.5); WBC 10.3 10x3/uL (4.8-10.8)
[2019-03-13 07:34] LABS: ALBUMIN 3.6 g/dL (3.4-5.0); ALKALINE PHOSPHATASE 147 U/L (46-116); ALT (SGPT) 56 U/L (10-68); BILIRUBIN - TOTAL 0.22 mg/dL (0.2-1.3); CALC OSMOLALITY 287 mosm/kg (275-300); CALCIUM 9.3 mg/dL (8.5-10.1); CARBON DIOXIDE 22.4 mmol/L (21.0-32.0); CHLORIDE - SERUM 99 mmol/L (98-107); CKMB 1.8 U/L (0.0-3.6); CREATINE KINASE 81 UL (21-215); CREATININE - SERUM 1.6 mg/dL (0.6-1.3); GLUCOSE 356 mg/dL (74-106); POTASSIUM - SERUM 3.9 mmol/L (3.5-5.1); PROTEIN - SERUM 8.1 g/dL (6.4-8.2); SODIUM 136 mmol/L (136-145); UREA NITROGEN 19 mg/dL (7-18); eGFR NON AFRICAN AMERICAN 37 mL/min (90-120)
[2019-03-13 07:37] LABS: TROPONIN-I 0.306 ng/mL (0.000-0.060)
--- NOTE | 2019-03-13 07:47 | NUR ---
CALLED AND NOTIFIED DR KEITH OF [facility] 0.306 AND PT NEEDS PAIN MEDICAION. SAGAR SAID TO GIVE 1000MG TYLENOL.
--- NOTE | 2019-03-13 07:50 | NUR ---
TP REFUSED TYLENOL AND EXPLAINED TO PT THAT DR KEITH SAID TYLENOL; PT REFUSED TYLENOL
[2019-03-13 08:47] VITALS: BP 142/95; Ht 160 cm; Wt 65.5 kg
[2019-03-13 09:35] LABS: UDS - AMPHET NEGATIVE QUAL (NEGATIVE); UDS - BARB NEGATIVE QUAL (NEGATIVE); UDS - BENZO POSITIVE QUAL (NEGATIVE); UDS - COCAINE NEGATIVE QUAL (NEGATIVE); UDS - OPIATE POSITIVE QUAL (NEGATIVE); UDS - PCP NEGATIVE QUAL (NEGATIVE); UDS - THC POSITIVE QUAL (NEGATIVE)
[2019-03-13 11:00] VITALS: BP 110/72
[2019-03-13 12:00] VITALS: BP 156/89
[2019-03-13 13:00] VITALS: BP 155/88
--- NOTE | 2019-03-13 13:06 | NUR ---
PT COMPLAINS OF PAIN AND BEING HUNGRY. CALLED DR ROSENBAUM. HE SAID PT CAN HAVE TYLENOL AND THAT WE NEEDED CARDIOLOGY TO SEE HER BEFORE WE CAN ORDER A DIET. PAGED DR TROY.
--- NOTE | 2019-03-13 13:41 | NUR ---
PATIENT CALLED ADMIN WITH CONCERN OF PAIN CONTROL. VISITED WITH PATIENT AND SHE UNDERSTANDS SHE IS ON A NITRO DRIP WHICH SHOULD BE HELPING HER CP BUT THAT WE WOULD CALL INSURANCE VERIFICATION SPECIALIST AND PCP FOR FURTHER ORDERS BEYOND TYLENOL. SHE AGREED TO THIS.
--- NOTE | 2019-03-13 13:50 | NUR ---
CALLED AND LEFT MESSAGE WITH ANALY NEWTON.
--- NOTE | 2019-03-13 13:53 | NUR ---
DR ROSENBAUM IN UNIT. STATED HE WOULD ROUND ON PT.
[2019-03-13 15:00] VITALS: BP 127/77
--- NOTE | 2019-03-13 15:00 | NUR ---
AM MEDICATIONS GIVEN. PT EATING. TROPONIN DRAWN.
[2019-03-13] MEDS ORDERED: INDOCIN25 MG PO (16:45)
--- NOTE | 2019-03-13 17:53 | NUR ---
DISCHARGE INSTRUCTIONS GIVEN. ROLLED PT OUT TO CAR.
== END 2019-03-13 17:54 | disposition home or self-care (01) | DRG 313 ==
LOC: D.ER 06:12 → D.ICU 08:22
PROVIDERS: Family Medicine; ADMIT Internal Medicine Nephrology; ATTEND Internal Medicine Nephrology
DX: R07.9 Chest pain, unspecified (principal); I25.10 Atherosclerotic heart disease of native coronary artery without angina pectoris; R10.11 Right upper quadrant pain; J44.9 Chronic obstructive pulmonary disease, unspecified; J45.909 Unspecified asthma, uncomplicated; G40.909 Epilepsy, unspecified, not intractable, without status epilepticus; E11.65 Type 2 diabetes mellitus with hyperglycemia; Z95.5 Presence of coronary angioplasty implant and graft

== ENCOUNTER 2019-07-19 19:36 | Inpatient (IN) | payer MEDICAID ==
[~2019-07-19] VITALS: Ht 160 cm; Wt 59.0 kg
--- NOTE | ~2019-07-19 | HEMODYNAMI ---
PATIENT:SHARON APONTE MEDICAL RECORD: [id number] : 71 [facility] [id number] ADMISSION DATE: 07/21/19 Generatedon:07/22/201911:31 Patient name: SHARON APONTE Patient #: [id number] SSN: [id number] : 1975 Date of study: 07/22/2019 Page: Of Hemodynamic Procedure Report Patient Data Patient Demographics Procedure consent was obtained First Name: SHARON Gender: Female Last Name: FADI : 1975 Patient #: [id number] Age: 43 year(s) Race: Black SSN: [id number] Additional ID: [id number] Contact details Address: [place] [address] State: [place] City: [place] Zip code: [address] Past Medical History Allergies Allergen Reaction Date Comments Reported Other allergy 12/05/2018 CONTRAST- ORAL AND IV. PCN Other allergy 03/12/2019 Iodinated Contrast-Coded Penicillin-Coded Codeine Admission Admission Data Admission Date: 07/21/2019 Admission Time: 12:29 Arrival Date: 07/21/2019 Arrival Time: 12:29 Admit Source: Other Insurance Payor: Medicaid Room #: D.2120 [facility] #: [id number] Height (in.): 62.99 BSA: 1.61 (m2) Height (cm.): 160 BMI: 23.05 (kg/m2) Weight (lbs.): 130.07 Weight (kg.): 59 Lab Results Lab Result Date: 07/22/2019 Lab Result Time: 0:00 Biochemistry Name Units Result Min Max BUN mg/dl 12 --(-*--)-- 7 18 Creatinine mg/dl 1.2 --(---*)-- 0.6 1.3 eGFR ml/min 51 *-(----)-- 90 120 NONAFRICAN CBC Name Units Result Min Max Hemoglobin g/dl 11.7 *-(----)-- 13.5 17.5 Procedure Procedure Types Cath Procedure Diagnostic Procedure C LH w/Coronaries w/Grafts Sedation Charges Moderate Sedation up to 30 minutes Procedure Description Procedure Date Procedure Date: 07/22/2019 Procedure Start Time: 11:13 Procedure End Time: 11:29 Procedure Staff Name Function Erlin Carlos MD Performing Physician Kari Lewis RT Monitor Marisa Damian RT Scrub Cathy Valdes RN Nurse Procedure Data Cath Procedure Fluoroscopy Diagnostic fluoroscopy Total fluoroscopy Time: 3.1 time: 3.1 min min Diagnostic fluoroscopy Total fluoroscopy dose: 295 dose: 295 mGy mGy Contrast Material Contrast Material Type Amount (ml) Isovue 300 47 Entry Location Entry Primary Successful Side Size Upsize Upsize Entry Closure Succes sful Closure Location (Fr) 1 (Fr) 2 (Fr) Remarks Device Remarks Femoral Right 5 Fr Exoseal artery Estimated blood loss: 5 ml Diagnostic catheters Device Type Used For End Catheter Placement MULTIPACK JL 4.0 5Fr Left Coronary catheter Angiography DIAGNOSTIC AR MOD 5Fr Multi-vessel Catheter ([id number]) Angiography MULTIPACK Pigtail 5 Fr LV Angiography catheter DIAGNOSTIC IM 5Fr Multi-vessel catheter ([id number]) Angiography Procedure Complications No complications Procedure Medications Medication Administration Route Dosage 0.9% NaCl I.V. 100 ml/hr Oxygen etCO2 Nasal cannula 2 l/min Lidocaine 2% added to field 20 Heparin Flush Bag added to field 2 bags (1000units/500ml NS) Versed I.V. 2 mg Fentanyl I.V. 50 mcg Fentanyl I.V. 50 mcg Hemodynamics Rest BSA: 1.61 (m2) HGB: 11.7 (g/dl) O2 Consumption: Estimated: 172.79 (ml/min) O2 Co nsumption indexed: Estimated:107.32 (ml/min/m) Heart Rate: 90 (bpm) Pressure Samples Time Site Value (mmHg) Purpose Heart Use Rate(bpm) 11:23 LV 97/6,16 Snapshot 87 11:24 AO 141/70(97) Pullback 86 11:24 LV 143/-12,7 Pullback 86 Gradients Valve Time Site 1 Site 2 Mean SEP/DFP Peak To Heart Use (mmHg) (sec/min) Peak Rate (mmHg) (bpm) Aortic 11:24 LV AO 17 19 2 86 143/-12,7 141/70(97) Calculations Valve P-P Mean Valve Index Valve Source Name Gradient Area Flow (cm2) Aortic 2 17 2 17 Snapshots Pre Cath Intra NCS Post Cath Vital Signs Time Heart Resp SPO2 etCO2 NIBP (mmHg) Rhythm Pain Sedation Rate (ipm) (%) (mmHg) Status Level (bpm) 10:56:44 90 15 98 35.8 Measuring NSR 0 (11) 10(A) , No pain 10:57:02 79 14 99 34.8 179/115(147) NSR 0 (11) 10(A) , No pain 11:01:16 90 17 98 35.6 181/102(136) NSR 0 (11) 10(A) , No pain 11:05:34 85 11 98 38.5 152/88(115) NSR 0 (11) 10(A) , No pain 11:09:44 85 11 98 38.4 147/85(114) NSR 0 (11) 9(A) , No pain 11:13:52 86 10 98 33.9 143/83(117) NSR 0 (11) 9(A) , No pain 11:17:55 85 15 98 33.9 146/90(121) NSR 0 (11) 9(A) , No pain 11:22:03 85 9 98 33.9 143/84(106) NSR 0 (11) 10(A) , No pain 11:26:09 85 9 98 35.5 144/85(108) NSR 0 (11) 9(A) , No pain Medications Time Medication Route Dose Verified Delivered Reason Notes Eff ectiveness by by 10:56:11 0.9% NaCl I.V. 100 Erlin Cathy used for ml/hr Terrance Valdes lens dotter 10:56:17 Oxygen etCO2 2 Erlin Cathy used for Nasal l/min Terrance Valdes procedure cannula RN 10:56:21 Lidocaine 2% added 20ml Erlin Erlin for local to vial Terrance Carlos MD anesthetic field 10:56:26 Heparin Flush added 2 Erlin Erlin used for Bag to bags Terrance Carlos MD procedure (1000units/500ml field NS) 10:57:00 Versed I.V. 2 mg Erlin Cathy for Terrance Valdes sedation RN 10:57:14 Fentanyl I.V. 50 Erlin Cathy for mcg Terrance Valdes sedation RN 11:03:47 Fentanyl I.V. 50 Erlin Morgan for [facility] Terrance Valdes sedation event marketing representative Log Time Note 10:25:32 Cathy Valdes RN sent for patient. Start room use. 10:30:17 Informed consent obtained and on chart 10:32:53 Admit Source: Other 10:32:55 Arrival Date: 07/21/2019 12:29:00 PM 10:34:40 Insurance Payor : Medicaid 10:34:49 Patient Height : 62.99 inches 10:34:52 Patient Weight : 130.07 lbs 10:35:27 Lab Result : BUN 12 mg/dl 10:35: Lab Result : Creatinine 1.2 mg/dl 10:35: Lab Result : Hemoglobin 11.7 g/dl 10:35: Lab Result : eGFR NONAFRICAN 51 ml/min 10:36:08 Diagnostic Cath Status : Urgent 10:36:23 Procedure Status Urgent Heart Cath (IP). 10:36:41 Time tracking: Regular hours (M-F 7:00 - 5:00) 10:36:45 Plan of Care:Hemodynamics will remain stable., Cardiac rhythm will remain stable., Comfort level will be maintained., Respiratory function will remain adequate., Patient/ family verbilizes understanding of procedure., Procedure tolerated without complication., Recovers from procedure without complications.. 10:36:51 Patient received from Med II to CCL 2 Alert and oriented. Tansferred to table in Supine position. 10:36:51 Warm blankets applied, and chanel hugger turned on for patient comfort. 10:36:52 Correct patient and procedure confirmed by team. 10:36:52 ECG and BP/O2 sat monitors applied to patient. 10:41:32 patient unintentionally pulled IV out of right forearm 10:41:44 IV right forearm D/C'd due to other.. 10:49:53 IV started by Cathy Valdes RN inleft hand with a 22 gauge IV catheter with 0.9% NaCl at KVO. 10:54:53 Vital chart was started 10:54:54 Baseline sample Acquired. 10:54:58 Rhythm: sinus tachycardia 10:55:00 Full Disclosure recording started 10:55:03 H&P Date Dictated: 07/22/2019 New H&P dictated by physician.. 10:55:05 Pre-procedure instructions explained to patient. 10:55:05 Pre-op teaching completed and patient verbalized understanding. 10:55:07 Family unavailable. 10:55:08 Patient NPO since Midnight. 10:55:18 Is the patient allergic to Iodine/contrast media? Yes. 10:55:19 Was the patient premedicated? Yes 10:55:20 Is patient on blood thinner?No 10:55:22 Patient diabetic? Yes. 10:55:23 If diabetic: On Metformin? Yes 10:55:25 If on Metformin: Last Dose? 07/21/2019 10:55:29 Previous problem with sedation/anesthesia? No ? 10:55:30 Snore? Yes 10:55:31 Sleep apnea? Yes 10:55:32 Deviated septum? No 10:55:33 Opens mouth fully? Yes 10:55:33 Sticks out tongue? Yes 10:55:36 Airway obstruction? Yes copd 10:55:39 Dentures? No ? 10:55:42 Pre procedure: right dorsailis pedis pulse 2+ Normal; easily identifiable; not easily obliterated 10:55:49 Pre procedure: left dorsailis pedis pulse 2+ Normal; easily identifiable; not easily obliterated 10:55:51 Patient pain scale 0/10 ?. 10:55:56 Lab results completed and on chart. 10:56:08 Stress Test: yes; abnormal lateral 10:56:11 0.9% NaCl 100 ml/hr I.V. was administered by Cathy Valdes RN; used for procedure; Verbal order read back and verified. 10:56:13 Right groin area was prepped with chlora-prep and draped in sterile fashion 10:56:14 Alarms reviewed by R. N. 10:56:14 Sharps counted by scrub and verified by R.N. 10:56:17 Oxygen 2 l/min etCO2 Nasal cannula was administered by Cathy Valdes RN; used for procedure; Verbal order read back and verified. 10:56:21 Lidocaine 2% 20ml vial added to field was administered by Erlin Carlos MD; for local anesthetic; Verbal order read back and verified. 10:56:26 Heparin Flush Bag (1000units/500ml NS) 2 bags added to field was administered by Erlin Carlos MD; used for procedure; Verbal order read back and verified. 10:56:46 Physician arrived 10:56:46 --------ALL STOP TIME OUT------ 10:56:46 Final Timeout: patient, procedure, and site verified with staff and physician. All members of the team are in agreement. 10:56:48 Right groin site verified by team. 10:56:51 Fire Safety Assessment: A--An alcohol-based skin anteseptic being used preoperatively., C--Open oxygen or nitrous oxide is being used., D--An ESU, laser, or fiber-optic light is being used. 10:57:00 Versed 2 mg I.V. was administered by Cathy Valdes RN; for sedation; Verbal order read back and verified. 10:57:10 Physical assessment completed. ASA score P 2 - A patient with mild systemic disease as per Erlin Carlos MD. 10:57:13 2) 60-89 Mildly reduced kidney function, and other findings (as for stage 1) point to kidney disease. 10:57:14 Fentanyl 50 mcg I.V. was administered by Cathy Valdes RN; for sedation; Verbal order read back and verified. 10:57:21 Maximum allowable contrast dose (3.7 X eGFR X 0.75)141 ml. 10:57:27 Sedation plan: IV Moderate Sedation Medication:Versed, Fentanyl 10:57:55 Use device set Femoral Dx 10:57:56 ACIST Syringe (42587) opened to sterile field. 10:57:57 Bag Decanter (2002S) opened to sterile field. 10:57:57 Medline Cath Pack ([id number]) opened to sterile field. 10:57:58 ACIST Hand Control (50314) opened to sterile field. 10:57:59 ACIST Manifold (71950) opened to sterile field. 10:57:59 DIAGNOSTIC Multipack 5Fr catheter set (PQ0096) opened to sterile field. 10:58:01 Tegaderm 4 x 4 (1626W) opened to sterile field. 10:58:02 SHEATH 5FR [place] (GJH687) opened to sterile field. 10:58:02 EMERALD Guide Wire (734-792) opened to sterile field. 11:03:47 Fentanyl 50 mcg I.V. was administered by Cathy Valdes RN; for sedation; Verbal order read back and verified. 11:13:11 Procedure started. 11:13:16 Local anesthetic to right femoral artery with Lidocaine 2% by Erlin Carlos MD.INITIAL ACCESS ONLY 11:13:25 A 5 Fr sheath was inserted into the Right Femoral artery 11:18:17 A MULTIPACK JL 4.0 5Fr catheter was advanced over the wire and used for Left Coronary Angiography. 11:18:25 LCA angiography performed. 11:18:28 Injector settings: Ml/sec: 3, Volume: 6, 11:19:30 Catheter removed. 11:19:56 A DIAGNOSTIC AR MOD 5Fr Catheter ([id number]) was advanced over the wire and used for Multi-vessel Angiography. 11:21:16 SVG to RCA angiography performed. 11:22:26 Injector settings: Ml/sec: 3, Volume: 6, 11:23:20 Catheter removed. 11:23:27 A MULTIPACK Pigtail 5 Fr catheter was advanced over the wire and used for LV Angiography. 11:23:43 LV hemodynamics recorded. 11:23:44 LV gram done using SALVADOR 11:23:46 Injector settings: Ml/sec: 5, Volume: 15, 11:23:54 EF : 60 % 11:24:05 Catheter removed. 11:24:42 A DIAGNOSTIC IM 5Fr catheter ([id number]) was advanced over the wire and used for Multi-vessel Angiography. 11:26:02 ZARAGOZA angiography performed. 11:26:12 Catheter removed. 11:26:18 EXOSEAL 5Fr (EX500) opened to sterile field. 11:26:48 Sheath removed intact; hemostasis achieved with Exoseal to the Right Femoral artery. 11:26:49 Procedure ended.(Physican Out) 11:27:08 Fluoroscopy time 03.10 minutes. 11:27:13 Fluoroscopy dose: 295 mGy 11:27:13 Flurop Dose total: 295 11:27:19 Dose Area Product 55494 mGy/cm. 11:27:23 Contrast amount:Isovue 300 47ml. 11:27:25 Maximum allowable dose exceeded? No. 11:27:26 Sharps counted by scrub and verified by R.N. 11:27:31 Insertion/operative site no bleeding no hematoma. 11:27:33 Post-op/insertion site Right Femoral artery dressed using a 4 x 4 and Tegaderm. 11:27:40 Post Procedure Pulses reassessed and unchanged 11:27:43 Post procedure rhythm: unchanged. 11:27:45 Estimated blood loss: 5 ml 11::47 Post procedure instruction explained to patient.Patient verbalizes understanding. 11::47 Patient needs reinforcement of post procedure teaching. 11:28:00 Procedure type changed to Cath procedure, Diagnostic procedure, LHC, LHC w/Coronaries w/Grafts, Sedation Charges, Moderate Sedation up to 30 minutes 11:28:04 Procedure and supply charges have been captured, reviewed, submitted and are correct. 11:28:09 Procedure Complication : No complications 11:28:11 Vital chart was stopped 11::47 [facility] Findings: mild to moderate CAD (<70%) 11:28:49 Operative report dictated upon procedure completion. 11:28:50 See physician's report for complete and final results. 11:28:54 Report given to Med II. 11:28:56 Patient transfered to Med II with Stretcher. 11:29:01 Procedure ended. 11:29:01 Full Disclosure recording stopped 11:29:07 End room use (Document Last) 11:30:00 End room use (Document Last) 11:30:53 End room use (Document Last) Device Usage Item Name Manufacture Quantity Catalog Hospital Part Current Minimal L ot# / Number Charge Number Stock Stock Serial# Code ACIST Acist 1 53894 357544 030818 034156 20 Syringe Medical (30019) Systems Inc Bag Microtek 1 734537 75461 162041 5 Decanter Medical Inc. () Medline Medline 1 [id number] 407694 52474 657753 5 Cath Pack ([id number]) ACIST Hand Acist 1 80711 852713 819969 236493 5 Control Medical (63843) Systems Inc ACIST Acist 1 88571 993643 769156 798716 5 Manifold Medical (35861) Systems Inc DIAGNOSTIC Cardinal 1 MC0509 153214 73162 608946 30 [facility] Health 5Fr catheter set (AN3101) Tegaderm 4 3M 1 1626W 373654 756605 568286 5 x 4 (1626W) SHEATH 5FR Terumo 1 HGF588 088805 479340 385989 5 [place] (LWV302) EMERALD Cardinal 1 502-455 376372 287811 742090 5 Guide Wire Health (060-354) MULTIPACK Cardinal 1 345283 5 JL 4.0 5Fr Health catheter DIAGNOSTIC Cardinal 1 [id number] 724360 742571 084237 15 AR MOD 5Fr Health Catheter (797716C) MULTIPACK Cardinal 1 042965 5 Pigtail 5 Health Fr catheter DIAGNOSTIC Cardinal 1 [id number] 059003 228849 785409 5 IM 5Fr Health catheter (576943U) EXOSEAL 5Fr Cardinal 1 EX500 278655 000644 613759 10 (EX500) Health Signature Audit [place] Stage Time Signature Unsigned Intra-Procedure 07/22/2019 Kari Lewis 11:30:00 AM RT(R) Intra-Procedure 07/22/2019 Cathy Valdes 11:30:53 AM RN Intra-Procedure 07/22/2019 Erlin Carlos MD 11:31:40 AM Signatures Performing Physician : Signature : Erlin Carlos MD Date : Time : Monitor : Kari Lewis RT Signature : Date : Time : Nurse : Cathy Valdes RN Signature : Date : Time : [facility] [address] [place] [address]
[~2019-07-19 19:36] MED LIST changes: +INDOCIN25 MG PO; +LISINOPRIL20 MG PO
[2019-07-19 20:00] VITALS: BP 187/69
[2019-07-19 21:48] VITALS: BP 157/89
[2019-07-19 22:31] VITALS: BP 173/81
[2019-07-20 00:30] VITALS: BP 172/80
[2019-07-20 01:49] VITALS: BP 172/80; BMI 23.0
[2019-07-20 05:13] LABS: BASOPHILS 0.2 % (0-2); EOSINOPHILS 1.2 % (0-7); HEMATOCRIT 38.3 % (36.0-48.0); HEMOGLOBIN 11.6 g/dL (12-16); IMMATURE GRANULOCYTES 0.2 % (0-5); LYMPHOCYTES 43.3 % (15-50); MCH 25.8 pg (26.0-34.0); MCHC 30.3 g/dL (31.0-37.0); MCV 85.1 fL (80.0-100.0); MEAN PLATELET VOLUME 10.2 fL (7.4-10.4); MONOCYTES 9.6 % (2-11); NEUTROPHILS 45.5 % (40-80); PLATELET COUNT 287 10x3/uL (130-400); RDW 13.3 % (11.5-14.5); WBC 5.6 10x3/uL (4.8-10.8)
[2019-07-20 05:44] LABS: ALBUMIN 3.1 g/dL (3.4-5.0); ALKALINE PHOSPHATASE 127 U/L (30-120); ALT (SGPT) 17 U/L (10-68); BILIRUBIN - TOTAL 0.29 mg/dL (0.2-1.3); C-REACTIVE PROTEIN 3.1 mg/dL (0.0-0.9); CALCIUM 8.8 mg/dL (8.5-10.1); CARBON DIOXIDE 25.4 mmol/L (21.0-32.0); CHLORIDE - SERUM 102 mmol/L (98-107); CREATININE - SERUM 1.3 mg/dL (0.6-1.3); LIPASE 141 U/L (73-393); POTASSIUM - SERUM 3.8 mmol/L (3.5-5.1); PRO BNP 2513 pg/mL (0-125); PROTEIN - SERUM 7.7 g/dL (6.4-8.2); SODIUM 136 mmol/L (136-145); THYROID STIMULATING HORMONE 0.88 uIU/mL (0.36-3.74); UREA NITROGEN 11 mg/dL (7-18); eGFR NON AFRICAN AMERICAN 47 mL/min (90-120)
[2019-07-20 05:45] LABS: CALC OSMOLALITY 275 mosm/kg (275-300); GLUCOSE 186 mg/dL (74-106); TROPONIN-I < 0.017 ng/mL (0.000-0.060)
[2019-07-20 08:18] VITALS: BP 181/70; BP 197/104
[2019-07-20 14:09] LABS: BILIRUBIN NEGATIVE (NEGATIVE); GLUCOSE NEGATIVE (NEGATIVE); KETONE SMALL mg/dL (NEGATIVE); NITRITE NEGATIVE (NEGATIVE); UROBILINOGEN NORMAL (NORMAL)
[2019-07-20 15:20] LABS: UDS - AMPHET NEGATIVE QUAL (NEGATIVE); UDS - BARB NEGATIVE QUAL (NEGATIVE); UDS - BENZO NEGATIVE QUAL (NEGATIVE); UDS - COCAINE NEGATIVE QUAL (NEGATIVE); UDS - OPIATE POSITIVE QUAL (NEGATIVE); UDS - PCP NEGATIVE QUAL (NEGATIVE); UDS - THC POSITIVE QUAL (NEGATIVE)
[2019-07-20 20:00] VITALS: BP 176/79
[2019-07-21] VITALS: BP 144/71
[2019-07-21 04:00] VITALS: BP 134/73
[2019-07-21 09:21] LABS: BASOPHILS 0.2 % (0-2); EOSINOPHILS 1.3 % (0-7); HEMOGLOBIN 11.7 g/dL (12-16); LYMPHOCYTES 45.8 % (15-50); MCH 25.8 pg (26.0-34.0); MCHC 30.8 g/dL (31.0-37.0); MCV 83.9 fL (80.0-100.0); MEAN PLATELET VOLUME 10.1 fL (7.4-10.4); MONOCYTES 10.6 % (2-11); NEUTROPHILS 42.1 % (40-80); PLATELET COUNT 300 10x3/uL (130-400); RBC 4.53 10x6/uL (4.00-5.40); RDW 13.1 % (11.5-14.5); WBC 5.2 10x3/uL (4.8-10.8)
[2019-07-21 09:25] VITALS: BP 133/74
[2019-07-21 09:42] LABS: ANION GAP 16.1 mmol/L (8-16); CALCIUM 8.8 mg/dL (8.5-10.1); CARBON DIOXIDE 24.8 mmol/L (21.0-32.0); CHOL - HDL RATIO 9.8 ratio (2.3-4.1); CREATININE - SERUM 1.2 mg/dL (0.6-1.3); LDL-HDL RATIO 7.8 ratio (1.5-3.5); POTASSIUM - SERUM 3.9 mmol/L (3.5-5.1)
[2019-07-21 14:00] VITALS: BP 146/71
[2019-07-21 20:00] VITALS: BP 144/74
[2019-07-22] VITALS: BP 174/95
[2019-07-22 03:07] VITALS: BP 190/102
[2019-07-22 04:00] VITALS: BP 182/99
[2019-07-22 09:35] VITALS: BP 156/78
[2019-07-22 11:57] VITALS: BP 143/78
[2019-07-22 11:58] VITALS: Ht 160 cm; Wt 59.0 kg
[2019-07-22] MEDS ORDERED: CARAFATE1 G PO (13:13)
[2019-07-22] MEDS ORDERED: PROTONIX40 MG PO (13:13)
--- NOTE | 2019-07-22 15:52 | MORECARE ---
CASE MANAGEMENT DISCHARGE SUMMARY PATIENT: SHARON APONTE UNIT: [id number] ADM DATE: 07/21/19 AGE: 43 : 71 SEX: F ROOM/BED: D.2350 AUTHOR: MARISA SUMMERS PHYSICIAN: REFERRING PHYSICIAN: HARSHA ROSENBAUM MD DATE OF SERVICE: 07/22/19 Discharge Plan Patient Name: SHARON APONTE [facility] [facility] 1975 Planned Disposition: Home or Self Care Anticipated Discharge Date: 07/22/19 Discharge Date: Expected LOS: 1 Initial Reviewer: [email or web address] Initial Review Date: 07/19/2019 Generated: 07/22/19 4:51 pm Patient Name: SHARON APONTE Page 36175 at 1552 All edits/amendments must be made on the electronic document DICTATION DATE: 07/22/19 1551 COMPLIANCE PROJECT MANAGER: EMILY 07/22/19 1551 RPT#: [id number] DC DATE: STATUS: ADM IN [facility] [address] [place] [address] END OF REPORT
--- NOTE | 2019-07-22 16:01 | MORECARE ---
CASE MANAGEMENT DISCHARGE SUMMARY PATIENT: SHARON BELTRE UNIT: [id number] ADM DATE: 07/21/19 AGE: 43 : 71 SEX: F ROOM/BED: D.0900 AUTHOR: MARISA SUMMERS PHYSICIAN: REFERRING PHYSICIAN: HARSHA ROSENBAUM MD DATE OF SERVICE: 07/22/19 Discharge Plan Patient Name: SHARON BELTRE Facility: [facility]:[place] : 1975 Planned Disposition: Home or Self Care Anticipated Discharge Date: 07/22/19 Discharge Date: Expected LOS: 1 Initial Reviewer: [email or web address] Initial Review Date: 07/19/2019 Generated: 07/22/19 5:01 pm Comments DCP- Discharge Planning Updated by [email or web address]: Ngoc Bermudez on 07/22/19 2:[address] CM met with patient regarding DC needs/plans. Patient lives with her 3 adult children and is Independent with her care. PCP: CON Bonilla. Pharmacy: [facility]. Emergency contact: Angelica Beltre (dtr) #[phone]. Patient denies additional needs for DC home. Denies hospitalization within past 30 days. Patient states her son Alvaro will drive her home, lives in [place]. Patient denies need for HHS, Rehab, SNF. [place]: [facility] [place], [address]. CM attempted to contact dtrAngelica for transportation home, but line was busy, then went to voice mail. Encouraged patient to be in contact with family member to transport home. Also, notified patient's nurse of same. Last DP export: 07/22/19 2:52 p Patient Name: SHARON BELTRE Page 51987 at 1601 All edits/amendments must be made on the electronic document DICTATION DATE: 07/22/19 160 MACHINE TENDER: EMILY 07/22/19 160 RPT#: [id number] DC DATE: STATUS: ADM IN [facility] [address] [place] [address] END OF REPORT
--- NOTE | 2019-07-22 18:50 | MORECARE ---
CASE MANAGEMENT DISCHARGE SUMMARY PATIENT: SHARON BELTRE UNIT: [id number] ADM DATE: 07/21/19 AGE: 43 : 71 SEX: F ROOM/BED: D.0863 AUTHOR: MARISA SUMMERS PHYSICIAN: REFERRING PHYSICIAN: HARSHA ROSENBAUM MD DATE OF SERVICE: 07/22/19 Discharge Plan Patient Name: SHARON BELTRE [facility]:[place] : 1975 Planned Disposition: Home or Self Care Anticipated Discharge Date: 07/22/19 Discharge Date: 07/22/2019 Expected LOS: 1 Initial Reviewer: [email or web address] Initial Review Date: 07/19/2019 Generated: 07/22/19 7:49 pm Comments DCP- Discharge Planning Updated by [email or web address]: Ngoc Bermudez on 07/22/19 2:[address] CM met with patient regarding DC needs/plans. Patient lives with her 3 adult children and is Independent with her care. PCP: CON Bonilla. Pharmacy: [facility]. Emergency contact: Angelica Beltre (dtr) #[phone]. Patient denies additional needs for DC home. Denies hospitalization within past 30 days. Patient states her son Alvaro will drive her home, lives in [place]. Patient denies need for HHS, Rehab, SNF. Home address: [facility] [address], [place], [address]. CM attempted to contact dtrAngelica for transportation home, but line was busy, then went to voice mail. Encouraged patient to be in contact with family member to transport home. Also, notified patient's nurse of same. Last DP export: 07/22/19 3:01 p Patient Name: SHARON BELTRE Page [id number] at 1850 All edits/amendments must be made on the electronic document DICTATION DATE: 07/22/191848 PIN MACHINE TENDER: EMILY 07/22/191848 RPT#: [id number] DC DATE:07/22/19 STATUS: DIS IN [facility] [address] [place] [address] END OF REPORT
== END 2019-07-22 17:35 | disposition home or self-care (01) | DRG 286 ==
LOC: OBSVTIME → D.ER 19:36 → D.M2 19:54 → OBSVTIME 19:54 → D.M2 19:54 → D.ER 19:54 → D.M2 07-20 14:49 → D.ER 07-21 12:29 → D.M2 07-21 12:29
PROVIDERS: Family Medicine; Internal Medicine Cardiovascular Disease; ADMIT Internal Medicine Nephrology; ATTEND Internal Medicine Nephrology
PROC: B2121ZZ Fluoroscopy of Single Coronary Artery Bypass Graft using Low Osmolar Contrast (ICD-10-PCS; 2019-07-22)
PROC: B2151ZZ Fluoroscopy of Left Heart using Low Osmolar Contrast (ICD-10-PCS; 2019-07-22)
PROC: 4A023N7 Measurement of Cardiac Sampling and Pressure, Left Heart, Percutaneous Approach (ICD-10-PCS; 2019-07-22)
PROC: B2111ZZ Fluoroscopy of Multiple Coronary Arteries using Low Osmolar Contrast (ICD-10-PCS; principal; 2019-07-22 10:30)
DX: I25.110 Atherosclerotic heart disease of native coronary artery with unstable angina pectoris (principal); I50.33 Acute on chronic diastolic (congestive) heart failure; F17.203 Nicotine dependence unspecified, with withdrawal; J44.9 Chronic obstructive pulmonary disease, unspecified; F41.8 Other specified anxiety disorders; G40.909 Epilepsy, unspecified, not intractable, without status epilepticus; Z86.73 Personal history of transient ischemic attack (TIA), and cerebral infarction without residual deficits; E11.65 Type 2 diabetes mellitus with hyperglycemia

== ENCOUNTER 2019-10-08 12:08 | Inpatient (IN) | payer MEDICAID ==
[2019-10-08] VITALS (29 sets, daily range): BP systolic 120–218; BP diastolic 67–144; BMI 23.2
[~2019-10-08] VITALS: Ht 160 cm; Wt 60.0 kg
--- NOTE | ~2019-10-08 | HEMODYNAMI ---
PATIENT:SHARON APONTE MEDICAL RECORD: [id number] : 71 LOCATION:[place] [address] ADMISSION DATE: 10/08/19 Generatedon:10/08/201915:33 Patient name: SHARON APONTE Patient #: [id number] SSN: [id number] : 1975 Date of study: 10/08/2019 Page: Of Hemodynamic Procedure Report Patient Data Patient Demographics Procedure consent was obtained First Name: SHARON Gender: Female Last Name: FADI : 1975 Patient #: [id number] Age: 43 year(s) Race: Black SSN: [id number] Additional ID: [id number] Contact details Address: [place] [address] State: [place] City: [place] Zip code: [address] Past Medical History History of disease Date Diagnosis Comments CAD Allergies Allergen Reaction Date Comments Reported Other allergy 12/05/2018 CONTRAST- ORAL AND IV. PCN Other allergy 03/12/2019 Iodinated Contrast-Coded Penicillin-Coded Codeine Other allergy 10/08/2019 IODINE, PCN, CODEINE Admission Admission Data Admission Date: 10/08/2019 Admission Time: 12:58 Admit Source: Emergency department Room #: D.CV05 Height (in.): 63 BSA: 1.62 (m2) Height (cm.): 160.02 BMI: 23.43 (kg/m2) Weight (lbs.): 132.28 Weight (kg.): 60 Lab Results Lab Result Date: 10/08/2019 Lab Result Time: 0:00 Biochemistry Name Units Result Min Max BUN mg/dl 10 --(-*--)-- 7 18 Creatinine mg/dl 1.2 --(---*)-- 0.6 1.3 eGFR ml/min 61.27211 *-(----)-- 90 120 AM CBC Name Units Result Min Max Hematocrit % 32.5 *-(----)-- 42 54 Hemoglobin g/dl 10.2 *-(----)-- 13.5 17.5 Procedure Procedure Types Cath Procedure Diagnostic Procedure LHC LHC w/Coronaries w/Grafts Sedation Charges Moderate Sedation up to 15 minutes Procedure Description Procedure Date Procedure Date: 10/08/2019 Procedure Start Time: 15:17 Procedure End Time: 15:32 Procedure Staff Name Function Bro Sahu MD Performing Physician Marisa Damian RT Monitor Pastora Rebolledo RT Scrub Cathy Valdes RN Nurse Procedure Data Cath Procedure Fluoroscopy Diagnostic fluoroscopy Total fluoroscopy Time: 2.7 time: 2.7 min min Diagnostic fluoroscopy Total fluoroscopy dose: 349 dose: 349 mGy mGy Contrast Material Contrast Material Type Amount (ml) Isovue 300 65 Entry Location Entry Primary Successful Side Size Upsize Upsize Entry Closure Succes sful Closure Location (Fr) 1 (Fr) 2 (Fr) Remarks Device Remarks Femoral Right 6 Fr Exoseal artery Short Estimated blood loss: 5 ml Diagnostic catheters Device Type Used For End Catheter Placement MULTIPACK JL 4.0 5Fr Procedure catheter MULTIPACK 3DRC 5Fr Procedure catheter DIAGNOSTIC AR MOD 5Fr Procedure Catheter ([id number]) MULTIPACK Pigtail 5 Fr Procedure catheter Procedure Complications No complications Procedure Medications Medication Administration Route Dosage 0.9% NaCl I.V. 100 ml/hr Oxygen etCO2 Nasal cannula 2 l/min Lidocaine 2% added to field 20 Heparin Flush Bag added to field 2 bags (1000units/500ml NS) Benadryl I.V. 50 mg Solumedrol I.V. 125 mg Phenergan I.M. 25 mg Lopressor I.V. 5 mg Lopressor I.V. 5 mg Lopressor I.V. 5 mg Versed I.V. 2 mg Fentanyl I.V. 50 mcg Vasotec I.V. 2.5 mg Hemodynamics Rest BSA: 1.62 (m2) HGB: 10.2 (g/dl) O2 Consumption: Estimated: 184.94 (ml/min) O2 Co nsumption indexed: Estimated:114.16 (ml/min/m) Heart Rate: 108 (bpm) Pressure Samples Time Site Value (mmHg) Purpose Heart Use Rate(bpm) 15:26 LV 156/6,27 Snapshot 94 15:26 AO 152/90(118) Pullback 94 15:26 LV 156/19,26 Pullback 94 Gradients Valve Time Site 1 Site 2 Mean SEP/DFP Peak To Heart Use (mmHg) (sec/min) Peak Rate (mmHg) (bpm) Aortic 15:26 LV AO 5 17 4 94 156/19,26 152/90(118) Calculations Valve P-P Mean Valve Index Valve Source Name Gradient Area Flow (cm2) Aortic 4 5 4 5 Snapshots Pre Cath Intra NCS Post Cath Vital Signs Time Heart Resp SPO2 etCO2 NIBP (mmHg) Rhythm Pain Sedation Rate (ipm) (%) (mmHg) Status Level (bpm) 14:59:14 108 32 96 22.4 Measuring NSR 0 (11) 10(A) , No pain 14:59:42 107 32 96 23.1 198/123(161) NSR 0 (11) 10(A) , No pain 15:04:42 109 35 97 14.1 Measuring NSR 0 (11) 10(A) , No pain 15:05:29 113 43 98 17.1 232/136(174) NSR 0 (11) 10(A) , No pain 15:10:03 117 37 96 23.1 215/132(167) NSR 0 (11) 10(A) , No pain 15:14:31 100 38 98 21.6 194/117(165) NSR 0 (11) 10(A) , No pain 15:18:52 96 36 98 22.3 179/113(147) NSR 0 (11) 9(A) , No pain 15:23:14 96 32 98 26.8 170/111(141) NSR 0 (11) 9(A) , No pain 15:27:32 93 28 99 25.3 165/107(139) NSR 0 (11) 9(A) , No pain 15:31:50 91 27 99 24.6 168/108(142) NSR 0 (11) 10(A) , No pain Medications Time Medication Route Dose Verified Delivered Reason Notes E ffectiveness by by 15:04:42 0.9% NaCl I.V. 100 Bro Morgan used for ml/hr [facility] Ravindra Valdes procedure MD OSWALD 15:04:48 Oxygen etCO2 2 Bro Morgan used for Nasal l/min [facility] Ravind[facility] Valdes procedure cannula MD OSWALD 15:04:52 Lidocaine 2% added 20ml Bro Crabtree for local to vial [place] [facility] anesthetic field MD AREVALO 15:04:56 Heparin Flush added 2 Bro Pardoory used for Bag to bags [facility] procedure (1000units/500ml field MD AREVALO NS) 15:05:03 Benadryl I.V. 50 mg Bro Cathy used for Adelina Lucio procedure MD OSWALD 15:05:11 Solumedrol I.V. 125 Bro Cathy For allergic mg [facility] Ravindra Valdes reaction MD OSWALD 15:05:27 Phenergan I.M. 25 mg Bro Cathy for nausea St Ravindra Valdes MD, RN 15:10:50 Lopressor I.V. 5 mg Bro Cathy for [facility] hypertension MD OSWALD 15:13:13 Fentanyl I.V. 50 Bro Cathy for sedation mcg [facility] Ravindra Valdes MD, RN 15:13:21 Versed I.V. 2 mg Bro Cathy for sedation St Ravindra Valdes MD, RN 15:16:08 Lopressor I.V. 5 mg Bro Cathy for [facility] hypertension MD OSWALD 15:21:33 Lopressor I.V. 5 mg Bro Cathy for [facility] hypertension MD OSWALD 15:29:20 Vasotec I.V. 2.5 [address] mg [facility] Ravindra Valdes physician boiling house hand Log Time Note 14:32:48 Informed consent obtained and on chart 14:33:38 Procedure Status Urgent Heart Cath (IP). 14:33:39 Time tracking: Regular hours (M-F 7:00 - 5:00) 14:33:43 Plan of Care:Hemodynamics will remain stable., Cardiac rhythm will remain stable., Comfort level will be maintained., Respiratory function will remain adequate., Patient/ family verbilizes understanding of procedure., Procedure tolerated without complication., Recovers from procedure without complications.. 14:33:50 H&P Date Dictated: 10/08/2019 ER History on chart.. 14:34:42 Patient allergic to Other allergyIODINE, PCN, CODEINE 14:36:04 Lab Result : BUN 10 mg/dl 14:36:04 Lab Result : eGFR AM 61.13600 ml/min 14:36:04 Lab Result : Creatinine 1.2 mg/dl 14:36:04 Lab Result : Hematocrit 32.5 % 14:36:04 Lab Result : Hemoglobin 10.2 g/dl 14:36:56 Pastora Rebolledo RT(R) sent for patient. Start room use. 14:57:21 Patient received from ED to CCL 1 Alert and oriented. Tansferred to table in Supine position. 14:57:22 Warm blankets applied, and chanel hugger turned on for patient comfort. 14:57:23 Correct patient and procedure confirmed by team. 14:57:23 ECG and BP/O2 sat monitors applied to patient. 14:57:24 Vital chart was started 14:57:25 Baseline sample Acquired. 14:57:28 Rhythm: sinus tachycardia 14:57:29 Full Disclosure recording started 14:57:31 Pre-procedure instructions explained to patient. 14:57:31 Pre-op teaching completed and patient verbalized understanding. 14:57:32 Family unavailable. 14:57:34 Patient NPO since Midnight. 14:57:37 Is patient on blood thinner?Yes 14:57:39 ACC The patient was administered the following blood thiners within the last 24 hours: ACCPlavix 14:57:43 Patient diabetic? Yes. 14:57:45 If diabetic: On Metformin? Yes 14:57:46 If on Metformin: Last Dose? 10/07/2019 14:57:48 Patient not . Patient has had hysterectomy. 14:57:51 Previous problem with sedation/anesthesia? No ? 14:57:51 Snore? Yes 14:57:52 Sleep apnea? No 14:57:53 Deviated septum? No 14:58:00 Opens mouth fully? Yes 14:58:01 Sticks out tongue? Yes 14:58:02 Airway obstruction? No ? 14:58:04 Dentures? No ? 14:58:06 Pre procedure: right dorsailis pedis pulse 1+ Palpable, but thready & weak; easily obliterated 14:58:15 IV patent on arrival in left hand with 0.9% NaCl at O. 14:58:16 Lab results completed and on chart. 14:58:20 Right groin area was prepped with chlora-prep and draped in sterile fashion 14:58:21 Alarms reviewed by R. N. 14:58:22 Sharps counted by scrub and verified by R.N. 14:59:10 Use device set Femoral Dx 14:59:11 ACIST Syringe (26413) opened to sterile field. 14:59:11 Bag Decanter (2001S) opened to sterile field. 14:59:12 ACIST Hand Control (97997) opened to sterile field. 14:59:12 ACIST Manifold (18067) opened to sterile field. 14:59:13 Tegaderm 4 x 4 (1626W) opened to sterile field. 14:59:14 Medline Cath Pack ([id number]) opened to sterile field. 14:59:15 DIAGNOSTIC Multipack 5Fr catheter set (SB9529) opened to sterile field. 14:59:18 EMERALD Guide Wire (502-455) opened to sterile field. 14:59:24 SHEATH 6FR Charlotte (TAU383) opened to sterile field. 15:04:42 0.9% NaCl 100 ml/hr I.V. was administered by Cathy Valdes RN; used for procedure; Verbal order read back and verified. 15:04:48 Oxygen 2 l/min etCO2 Nasal cannula was administered by Cathy Valdes RN; used for procedure; Verbal order read back and verified. 15:04:52 Lidocaine 2% 20ml vial added to field was administered by Bro Sahu MD; for local anesthetic; Verbal order read back and verified. 15:04:56 Heparin Flush Bag (1000units/500ml NS) 2 bags added to field was administered by Bro Sahu MD; used for procedure; Verbal order read back and verified. 15:05:03 Benadryl 50 mg I.V. was administered by Cathy Valdes RN; used for procedure; Verbal order read back and verified. 15:05:11 Solumedrol 125 mg I.V. was administered by Cathy Valdes RN; For allergic reaction; Verbal order read back and verified. 15:05:27 Phenergan 25 mg I.M. was administered by Cathy Valdes RN; for nausea; Verbal order read back and verified. 15:08:42 Zero performed for pressure channel P1 15:09:33 Patient Weight : 132.28 lbs 15:09:43 Patient Height : 63 inches 15:09:50 Admit Source: Emergency department 15:10:50 Lopressor 5 mg I.V. was administered by Cathy Valdes RN; for hypertension; Verbal order read back and verified. 15:11:32 Stress Test: no; N/A NSTEMI 15:13:13 Fentanyl 50 mcg I.V. was administered by Cathy Valdes RN; for sedation; Verbal order read back and verified. 15:13:21 Versed 2 mg I.V. was administered by Cathy Valdes RN; for sedation; Verbal order read back and verified. 15:13:42 --------ALL STOP TIME OUT------ 15:13:43 Final Timeout: patient, procedure, and site verified with staff and physician. All members of the team are in agreement. 15:13:44 Right groin site verified by team. 15:13:46 Fire Safety Assessment: A--An alcohol-based skin anteseptic being used preoperatively., C--Open oxygen or nitrous oxide is being used., D--An ESU, laser, or fiber-optic light is being used. 15:13:49 Physical assessment completed. ASA score P 3 - A patient with severe systemic disease as per Bro Sahu MD. 15:14:04 2) 60-89 Mildly reduced kidney function, and other findings (as for stage 1) point to kidney disease. 15:14:08 Maximum allowable contrast dose (3.7 X eGFR X 0.75)172 ml. 15:14:11 Sedation plan: IV Moderate Sedation Medication:Versed, Fentanyl 15:16:08 Lopressor 5 mg I.V. was administered by Cathy Valdes RN; for hypertension; Verbal order read back and verified. 15:17:01 Procedure started. 15:17:07 Local anesthetic to right femoral artery with Lidocaine 2% by Bro Sahu MD.INITIAL ACCESS ONLY 15:18:54 A 6 Fr Short sheath was inserted into the Right Femoral artery 15:19:15 A MULTIPACK JL 4.0 5Fr catheter was advanced over the wire and used for Procedure. 15:20:50 LCA angiography performed. 15:20:51 Catheter removed. 15:20:57 A MULTIPACK 3DRC 5Fr catheter was advanced over the wire and used for Procedure. 15:21:33 Lopressor 5 mg I.V. was administered by Cathy Valdes RN; for hypertension; Verbal order read back and verified. 15:22:02 RCA angiography performed. 15:23:37 ZARAGOZA to LAD angiography performed. 15:23:38 Catheter removed. 15:23:57 A DIAGNOSTIC AR MOD 5Fr Catheter ([id number]) was advanced over the wire and used for Procedure. 15:24:52 SVG to RCA angiography performed. 15:24:53 Catheter removed. 15:24:59 A MULTIPACK Pigtail 5 Fr catheter was advanced over the wire and used for Procedure. 15::05 LV gram done using SALVADOR 15::08 Injector settings: Ml/sec: 10, Volume: 20, 15:26:17 LV hemodynamics recorded. 15::31 EF : 30 % 15:28:00 Catheter removed. 15:28:07 EXOSEAL 6Fr (EX600) opened to sterile field. 15:28:17 Sheath removed intact; hemostasis achieved with Exoseal to the Right Femoral artery. 15:28:20 Procedure ended.(Physican Out) 15:: Fluoroscopy time 02.70 minutes. 15:29:04 Fluoroscopy dose: 349 mGy 15:29:04 Flurop Dose total: 349 15:29:10 Dose Area Product 27834 mGy/cm. 15:29:14 Contrast amount:Isovue 300 65ml. 15:29:16 Sharps counted by scrub and verified by R.N. 15:29:18 Maximum allowable dose exceeded? No. 15:29:20 Vasotec 2.5 mg I.V. was administered by Cathy Valdes RN; Per physician; Verbal order read back and verified. 15:29:21 Post-op/insertion site Right Femoral artery dressed using a 4 x 4 and Tegaderm. 15:29:24 Post-procedure physical assessment completed. ASA score P 3 - A patient with severe systemic disease as per Bro Sahu MD. 15:29:27 Post procedure rhythm: sinus rhythm 15:29:30 Estimated blood loss: 5 ml 15:29:32 Post procedure instruction explained to patient.Patient verbalizes understanding. 15:29:32 Patient needs reinforcement of post procedure teaching. 15:30:01 Procedure type changed to Cath procedure, Diagnostic procedure, LHC, LHC w/Coronaries w/Grafts, Sedation Charges, Moderate Sedation up to 15 minutes 15:30:34 Procedure and supply charges have been captured, reviewed, submitted and are correct. 15:30:37 Procedure Complication : No complications 15:30:42 LHC Findings: mild to moderate CAD (<70%) 15:30:43 Operative report dictated upon procedure completion. 15:30:44 See physician's report for complete and final results. 15:31:38 Report given to CVICU. 15:31:43 Patient transfered to CVICU with Bed. 15:32:35 Vital chart was stopped 15:32:37 Procedure ended. 15:32:37 Full Disclosure recording stopped 15:32:42 End room use (Document Last) 15:33:15 End room use (Document Last) 15:33:41 End room use (Document Last) Device Usage Item Name Manufacture Quantity Catalog Hospital Part Current Minimal L ot# / Number Charge Number Stock Stock Serial# Code ACIST Acist 1 62477 370175 729006 099364 20 Syringe Medical (58957) Systems Inc Bag Microtek 1 901411 67036 781070 5 Decanter Medical Inc. () ACIST Hand Acist 1 17118 882787 565699 558943 5 Control Medical (05086) Systems Inc ACIST Acist 1 86337 648852 707987 564588 5 Manifold Medical (73588) Systems Inc Tegaderm 4 3M 1 1626W 608642 591327 329700 5 x 4 (1626W) Medline Medline 1 [id number] 714785 78873 720040 5 Cath Pack ([id number]) DIAGNOSTIC Cardinal 1 KU0690 568638 40914 230587 30 Multipack Health 5Fr catheter set (KL1591) EMERALD Cardinal 1 502-455 698620 044994 537918 5 Guide Wire Health (502-455) SHEATH 6FR Terumo 1 AUD516 177550 113079 772128 40 Charlotte (KNV174) MULTIPACK Cardinal 1 082180 5 JL 4.0 5Fr Health catheter MULTIPACK Cardinal 1 882372 5 3DRC 5Fr Health catheter DIAGNOSTIC Cardinal 1 [id number] 942745 392582 982864 15 AR MOD 5Fr Health Catheter (270137J) MULTIPACK Cardinal 1 501406 5 Pigtail 5 Health Fr catheter EXOSEAL 6Fr Cardinal 1 EX600 037832 974021 774366 10 (EX600) Health Signature Audit [place] Stage Time Signature Unsigned Intra-Procedure 10/08/2019 Pastora Rebolledo 3:33:15 PM RT(R) Intra-Procedure 10/08/2019 Cathy Valdes 3:33:41 PM RN Intra-Procedure 10/08/2019 Bro Gray 3:33:57 PM Ravindra [place] [address] [place] [address]
[~2019-10-08 12:08] MED LIST changes: +CARAFATE1 G PO
[2019-10-08 13:33] LABS: CALC OSMOLALITY 281 mosm/kg (275-300); CALCIUM 8.8 mg/dL (8.5-10.1); CARBON DIOXIDE 22.3 mmol/L (21.0-32.0); CHLORIDE - SERUM 99 mmol/L (98-107); CREATININE - SERUM 1.2 mg/dL (0.6-1.3); POTASSIUM - SERUM 3.3 mmol/L (3.5-5.1); SODIUM 135 mmol/L (136-145); UREA NITROGEN 10 mg/dL (7-18); eGFR NON AFRICAN AMERICAN 51 mL/min (90-120)
[2019-10-08 13:35] LABS: GLUCOSE 329 mg/dL (74-106)
[2019-10-08 13:39] LABS: BASOPHILS 0.1 % (0-2); EOSINOPHILS 0.1 % (0-7); HEMATOCRIT 32.5 % (36.0-48.0); HEMOGLOBIN 10.2 g/dL (12-16); IMMATURE GRANULOCYTES 0.3 % (0-5); MCHC 31.4 g/dL (31.0-37.0); MCV 82.9 fL (80.0-100.0); MEAN PLATELET VOLUME 10.2 fL (7.4-10.4); MONOCYTES 3.9 % (2-11); NEUTROPHILS 90.6 % (40-80); RBC 3.92 10x6/uL (4.00-5.40); RDW 14.9 % (11.5-14.5); WBC 16.3 10x3/uL (4.8-10.8)
[2019-10-08 13:44] LABS: PLATELET COUNT 370 10x3/uL (130-400)
[2019-10-08 13:56] LABS: APTT 56.8 SECONDS (22.8-39.4)
[2019-10-08 13:57] LABS: ALBUMIN 3.4 g/dL (3.4-5.0); ALKALINE PHOSPHATASE 119 U/L (30-120); ALT (SGPT) 23 U/L (10-68); BILIRUBIN - TOTAL 0.48 mg/dL (0.2-1.3); CKMB 2.3 U/L (0.0-3.6); CREATINE KINASE 76 UL (21-215); MAGNESIUM - SERUM 1.6 mg/dL (1.8-2.4); PROTEIN - SERUM 7.8 g/dL (6.4-8.2)
[2019-10-08 13:59] LABS: INR 1.04 (0.85-1.17); PROTIME 13.6 SECONDS (11.6-15.0)
[2019-10-08 14:02] LABS: TROPONIN-I 0.137 ng/mL (0.000-0.060)
[2019-10-08 14:43] LABS: % SATURATION 3 % (15-55); IRON 10 ug/dl (35-150); TOTAL IRON BIND CAPACITY 331 ug/dl (260-445); UNSAT IRON BIND CAPACITY 321 ug/dl (150-375)
[2019-10-08 15:12] LABS: ANION GAP 17.3 mmol/L (8-16); CALCIUM 8.6 mg/dL (8.5-10.1); CHOL - HDL RATIO 4.9 ratio (2.3-4.1); CREATININE - SERUM 1.1 mg/dL (0.6-1.3); LDL-HDL RATIO 3.6 ratio (1.5-3.5); MAGNESIUM - SERUM 1.6 mg/dL (1.8-2.4); POTASSIUM - SERUM 3.3 mmol/L (3.5-5.1)
--- NOTE | 2019-10-08 16:35 | NUR ---
PT ARRIVED TO UNIT AROUND 1554 FROM MANAGER SALES AND MARKETING. CONNECTED TO PRINTER APPRENTICE. PT CONFUSED AND DISORIENTED. ATTEMPTING TO SIT UP. WAS PLACED ON 4L O2 BY MANAGER SALES AND MARKETING STAFF BEFORE LEAVING ROOM. PT DESATED TO 80S. O2 INCREASED TO 6L. NO CHANGE IN SATURATION. PLACED ON SIMPLE MASK THEN NON REBREATHER AT 100%. DR. KRAMER WAS CALLED AND NOTIFIED OF BP. ORDERS RECEIVED. JUAN MANUEL PERRY SHEEP SHEARER AT BEDSIDE. DECREASED FLUIDS TO 10ML/HR. BIPAP ORDERED. WILL CONTINUE TO MONITOR.
--- NOTE | 2019-10-08 16:58 | MORECARE ---
CASE MANAGEMENT DISCHARGE SUMMARY PATIENT: SHARON APONTE UNIT: [id number] ADM DATE: 10/08/19 AGE: 43 : 71 SEX: F ROOM/BED: [facility] AUTHOR: MARISA SUMMERS PHYSICIAN: REFERRING PHYSICIAN: CATE HENRY MD DATE OF SERVICE: 10/08/19 Discharge Plan Patient Name: SHARON APONTE [facility] [facility] 1975 Planned Disposition: Anticipated Discharge Date: Discharge Date: Expected LOS: Initial Reviewer: [email or web address] Initial Review Date: 10/08/2019 Generated: 10/08/19 5:58 pm Comments DCP- Discharge Planning Updated by [email or web address]: Neelam Henley on 10/08/19 3:[address] CM unable to complete discharge planning at this time she is on Bipap and very drowsy. CM will continue to follow and assist as needed with discharge planning / needs. Patient Name: SHARON APONTE Page 07922 at 1658 All edits/amendments must be made on the electronic document DICTATION DATE: 10/08/191657 MEDICAL STAFF MANAGER: EMILY 10/08/191657 RPT#: [id number] DC DATE: STATUS: ADM IN [facility] [address] [place] [address] END OF REPORT
--- NOTE | 2019-10-08 18:30 | NUR ---
16 SINHALA WEEMS CATHETER INSERTED AT THIS TIME USING STERILE TECHNIQUE. PT TOLERATED WELL. URINE SAMPLE COLLECTED AND SENT TO LAB.
--- NOTE | 2019-10-08 18:59 | NUR ---
BP ELEVATED 192/108 CLONIDINE GIVEN PER ORDERS.
[2019-10-08 19:01] LABS: BILIRUBIN NEGATIVE (NEGATIVE); GLUCOSE 1000 mg/dL (NEGATIVE); KETONE SMALL mg/dL (NEGATIVE); NITRITE NEGATIVE (NEGATIVE); UDS - AMPHET NEGATIVE QUAL (NEGATIVE); UDS - BARB NEGATIVE QUAL (NEGATIVE); UDS - BENZO POSITIVE QUAL (NEGATIVE); UDS - COCAINE NEGATIVE QUAL (NEGATIVE); UDS - OPIATE POSITIVE QUAL (NEGATIVE); UDS - PCP NEGATIVE QUAL (NEGATIVE); UDS - THC POSITIVE QUAL (NEGATIVE); UROBILINOGEN NORMAL (NORMAL)
--- NOTE | 2019-10-08 19:30 | NUR ---
PAGED CARDIOLOGY R/T PT B/P, PT SEDATED, AROUSES BRIEFLY, O2 @ 100% VIA SIMPLE MASK, CRACKLES NOTED BILAT WITH EXP WHEEZES, LEFT HAND PIV INTACT WITH NS @ KVO AND BUMEX GTT, WEEMS PATENT TO BSD WITH CLEAR YELLOW URINE, DRSG INTACT TO RIGHT GROIN, WILL CONT TO MONITOR
[2019-10-08 19:49] LABS: CKMB 59.8 U/L (0.0-3.6); CREATINE KINASE 731 UL (21-215)
[2019-10-08 19:51] LABS: TROPONIN-I 17.673 ng/mL (0.000-0.060)
--- NOTE | 2019-10-08 20:10 | NUR ---
UNABLE TO GET HOLD OF CARDIOLOGY, REINIATED JOANRIDE GTT, PT REMAINS SEDATED
--- NOTE | 2019-10-08 21:00 | NUR ---
RECIEVED CALL FROM ANALY TAMEZ APN, ORDERS RECIEVED
[2019-10-09] VITALS (30 sets, daily range): BP systolic 92–192; BP diastolic 52–113; Ht 160 cm; Wt 60.0 kg
--- NOTE | 2019-10-09 02:00 | NUR ---
PT SLEEPING WITH NO DISTRESS NOTED, VITALS STABLE
[2019-10-09 02:12] LABS: CKMB 43.2 U/L (0.0-3.6); CREATINE KINASE 731 UL (21-215)
[2019-10-09 02:15] LABS: TROPONIN-I 15.951 ng/mL (0.000-0.060)
--- NOTE | 2019-10-09 04:30 | NUR ---
PT C/O PAIN IN [place], OFFERED TYLENOL, STATES SHE IS ALLERGIC TO TYLENOL, STATES SHE NORMALLY TAKES PERCOCET FOR PAIN
[2019-10-09 05:14] LABS: BASOPHILS 0 % (0-2); EOSINOPHILS 0 % (0-7); HEMATOCRIT 37.7 % (36.0-48.0); IMMATURE GRANULOCYTES 0.3 % (0-5); LYMPHOCYTES 9.5 % (15-50); MCH 26.1 pg (26.0-34.0); MCHC 31.8 g/dL (31.0-37.0); MCV 82.1 fL (80.0-100.0); MEAN PLATELET VOLUME 10.1 fL (7.4-10.4); MONOCYTES 1.7 % (2-11); NEUTROPHILS 88.5 % (40-80); PLATELET COUNT 422 10x3/uL (130-400); RBC 4.59 10x6/uL (4.00-5.40)
[2019-10-09 05:44] LABS: ALBUMIN 3.3 g/dL (3.4-5.0); ANION GAP 14.1 mmol/L (8-16); BILIRUBIN - TOTAL 0.52 mg/dL (0.2-1.3); CALCIUM 9.4 mg/dL (8.5-10.1); CARBON DIOXIDE 27.4 mmol/L (21.0-32.0); MAGNESIUM - SERUM 1.7 mg/dL (1.8-2.4); POTASSIUM - SERUM 3.5 mmol/L (3.5-5.1); PROTEIN - SERUM 8.1 g/dL (6.4-8.2)
[2019-10-09 05:45] LABS: CREATININE - SERUM 1.6 mg/dL (0.6-1.3)
--- NOTE | 2019-10-09 07:00 | NUR ---
RESTLESS IN BED. SLOW TO RESPOND. IV OUT LEAKING IN BED. COMPLIANTS OF ABD DISCOMFORT STATES SHE TAKES MIRALAX FOR IT. PO FLUIDS TAKEN. ORIENTATED X 4. WEEMS CATH PATENT DRAINING PALE YELLOW CLEAR URINE. MONITOR -.
--- NOTE | 2019-10-09 08:00 | NUR ---
DR. RODRIGUEZ CALLED FOR ORAL MEDS FOR BLOOD PRESSURE. ATTEMPTED IV X 2 WITHOUT SUCCESS.
--- NOTE | 2019-10-09 08:30 | NUR ---
2ND RN ATTEMPTED IV X 2 WITHOUT SUCCESS. KAROL VASCULAR NURSE STARTED 22 GAUGE IN LEFT WRIST X 1 ATTEMPTED INFUSING WITH NS. ZOFRAN GIVEN FOR NAUSEA. DRINKING 7UP STILL PRETTY SLEEPY. IV HYRDRAZINE GIVEN FOR BLOOD PRESSURE ORAL MEDS.
--- NOTE | 2019-10-09 09:00 | NUR ---
DR. ISAAC HERE TALKED WITH PATIENT. PATIENT STILL SLEEPY. SLOW TO WAKE UP. IV INFUSING WITH NS AT 10 ML HOUR. WILL WAIT ON NIPRIDE TO SEE WHAT EFFECT PO MEDS HAVE ON BLOOD PRESSURE
[2019-10-09 09:14] LABS: CKMB 29.1 U/L (0.0-3.6); CREATINE KINASE 645 UL (21-215)
--- NOTE | 2019-10-09 10:52 | OP ---
PATIENT NAME: SHARON APONTE MEDICAL RECORD: [id number] :71 LOCATION:[place]CV[facility] ADMISSION DATE:10/08/19 SURGEON: ALBA KRAMER MD DATE OF OPERATION: 10/08/2019 PROCEDURE: Left heart catheterization, selective coronary angiography, right femoral artery approach. CATHETERS: A 5-Georgian sheath, 5/4 left and right Fran, 5/4 pig. The procedure was well tolerated. The patient was returned to keller, sheath removed. ExoSeal device placed. FINDINGS: Left ventriculography in 30-degree SALVADOR, global hypokinesis, EF decreased 30%. CORONARY ANATOMY: LEFT MAIN: Left main is free of disease. LAD: Fills for a short period of time, is totally occluded, is seen filling via competitive flow via the ZARAGOZA to LAD. CIRCUMFLEX: Totally occluded. Fills well via right to left collaterals. RIGHT CORONARY ARTERY: Totally occluded. BYPASS GRAFTS: 1. Saphenous vein graft is widely patent, supplies the right and collaterals to the circumflex. 2. ZARAGOZA to LAD is widely patent with no evidence of post-anastomotic stenosis. IMPRESSION: Findings consistent with a type 2 myocardial infarction with demand-supply mismatch secondary to hypertensive crisis. Hopefully LV function will recover with a controlled blood pressure. TRANSINT:[id number] Voice Confirmation ID: [id number] DOCUMENT ID: [id number] ALBA KRAMER MD at 1052 CC: [id number] DICTATION DATE: 10/08/19 1539 CARBONATING STONE CLEANER: 10/09/19 0122 ADM IN [place] [address] [place] [address]
--- NOTE | 2019-10-09 13:00 | NUR ---
NURSE CALL LIGHT ON, PATIENT STATES HER 10 YEAR OLD SON HAS BEEN IN CAR ACCIDENT AND SHE MUST LEAVE RIGHT NOW. PATIENT THEN STATES SHE HAS A BOTTLE OF PEROCET 10 MISSING FROM HER PURSE, PATIENT DOES HAVE OTHER BOTTLES OF MEDS IN HER PURSE. DR. RODRIGUEZ CALLED INFORM OF PATIENT INFORMATION STATES PATIENT WILL HAVE TO LEAVE AMA.
--- NOTE | 2019-10-09 13:30 | NUR ---
PATIENT SIGNED AMA FORM. WEEMS CATH REMOVED. IV DC'D. PATIENT DRESSED HERSELF. SEARCH MARKETING COORDINATOR HERE TALKED WITH PATIENT. PATIENT REMINDED OF THE RISK IN LEAVING HOSPITAL AGAINST MEDICAL ADVICE.
--- NOTE | 2019-10-09 13:45 | MORECARE ---
CASE MANAGEMENT DISCHARGE SUMMARY PATIENT: SHARON APONTE UNIT: [id number] ADM DATE: 10/08/19 AGE: 43 : 71 SEX: F ROOM/BED: D.[facility] AUTHOR: KRISTOPHER,DOC PHYSICIAN: REFERRING PHYSICIAN: CATE HENRY MD DATE OF SERVICE: 10/09/19 Discharge Plan Patient Name: SHARON APONTE Facility: [facility]:[place] : 1975 Planned Disposition: Home Anticipated Discharge Date: 10/09/19 Discharge Date: Expected LOS: 1 Initial Reviewer: [email or web address] Initial Review Date: 10/08/2019 Generated: 10/09/19 2:44 pm Comments DCP- Discharge Planning Updated by [email or web address]: Evelia Patel on 10/09/19 12:[address] PRIMARY NURSE ADVISED CM THAT THE PATIENT IS REQUESTING TO BE DISCHARGED. THE NURSE HAS SPOKEN WITH DR RODRIGUEZ WHO STATES IF SHE LEAVES IT WILL BE AMA. CM TO THE BEDSIDE. PATIENT CONFIRMS SHE WISHES TO LEAVE. SHE REPORTEDLY HAS A FAMILY EMERGENCY. HER DAUGHTER, CORINA, HAS SPOKEN WITH HER MOTHER. PATIENT'S PLAN IS TO RETURN TO HOME WITH HER FAMILY. CORINA APONTE- DTR- [phone] PATIENT DENIES ANY NEEDS. STATES SHE IS NOT RECEIVING ANY CARE FROM COMM[facility]. DENIES NEED FOR HOME HEALTH,REHAB OR SKILLED SERVICES. PCP- DR JEFFERS IN [place], [place] PHARMACY- [facility]- CANE AND GLUCOMETER STATES SHE MAY NEED A POTTY AND NEW CANE. ADVISED MD COULD WRITE RX FOR THE COMMODE. CANE CAN BE OBTAINED FROM PHARMACY , [facility] [employer] OR [facility]. PATIENT APPEARS WEAK AND SHORT OF BREATH. ANSWERED QUESTIONS WITH ONE TO TWO WORDS. CM ADVISED SHE APPEARED WEAK. ASK IF SHE FELT SHE WAS STRONG ENOUGH TO GO HOME. SHE IS STILL PLANNING TO LEAVE. POSSIBLE HABITAT FOR HUMANITIES. DCP- Discharge Planning Updated by [email or web address]: Neelam Henley on 10/08/19 3:[address] CM unable to complete discharge planning at this time she is on Bipap and very drowsy. CM will continue to follow and assist as needed with discharge planning / needs. Last DP export: 10/08/19 3:58 p Patient Name: SHARON APONTE Page [id number] at 1345 All edits/amendments must be made on the electronic document DICTATION DATE: 10/09/19 1344 CORPORATE FINANCIAL ANALYST: EMILY 10/09/19 1344 RPT#: [id number] DC DATE: STATUS: ADM IN [facility] [address] [place] [address] END OF REPORT
--- NOTE | 2019-10-09 13:52 | MORECARE ---
CASE MANAGEMENT DISCHARGE SUMMARY PATIENT: SHARON APONTE UNIT: [id number] ADM DATE: 10/08/19 AGE: 43 : [birth year] SEX: F ROOM/BED: D.[facility] AUTHOR: KRISTOPHER,DOC PHYSICIAN: REFERRING PHYSICIAN: CATE HENRY MD DATE OF SERVICE: 10/09/19 Discharge Plan Patient Name: SHARON APONTE Facility: [facility]:[place] : 1975 Planned Disposition: Home Anticipated Discharge Date: 10/09/19 Discharge Date: Expected LOS: 1 Initial Reviewer: [email or web address] Initial Review Date: 10/08/2019 Generated: 10/09/19 2:52 pm Comments DCP- Discharge Planning Updated by [email or web address]: Evelia Patel on 10/09/19 12:[address] PATIENT DISCHARGED VIA ER ENTRANCE TO HOME AMA. DCP- Discharge Planning Updated by [email or web address]: Evelia Patel on 10/09/19 12:[address] PRIMARY NURSE ADVISED CM THAT THE PATIENT IS REQUESTING TO BE DISCHARGED. THE NURSE HAS SPOKEN WITH DR RODRIGUEZ WHO STATES IF SHE LEAVES IT WILL BE AMA. CM TO THE BEDSIDE. PATIENT CONFIRMS SHE WISHES TO LEAVE. SHE REPORTEDLY HAS A FAMILY EMERGENCY. HER DAUGHTER, CORINA, HAS SPOKEN WITH HER MOTHER. PATIENT'S PLAN IS TO RETURN TO HOME WITH HER FAMILY. CORINA APONTE- DTR- [phone] PATIENT DENIES ANY NEEDS. STATES SHE IS NOT RECEIVING ANY CARE FROM COMMUNITY SERVICES. DENIES NEED FOR HOME HEALTH,REHAB OR SKILLED SERVICES. PCP- DR JEFFERS IN [place], [place] PHARMACY- [facility]- CANE AND GLUCOMETER STATES SHE MAY NEED A POTTY AND NEW CANE. ADVISED MD COULD WRITE RX FOR THE COMMODE. CANE CAN BE OBTAINED FROM PHARMACY , MEDICAL EQUIPMENT [employer] OR [facility]. PATIENT APPEARS WEAK AND SHORT OF BREATH. ANSWERED QUESTIONS WITH ONE TO TWO WORDS. CM ADVISED SHE APPEARED WEAK. ASK IF SHE FELT SHE WAS STRONG ENOUGH TO GO HOME. SHE IS STILL PLANNING TO LEAVE. POSSIBLE HABITAT FOR HUMANITIES. DCP- Discharge Planning Updated by [email or web address]: Neelam Henley on 10/08/19 3:[address] CM unable to complete discharge planning at this time she is on Bipap and very drowsy. CM will continue to follow and assist as needed with discharge planning / needs. DCPIA - Discharge Planning Initial Assessment Updated by [email or web address]: Evelia Patel on 10/09/19 1:47 pm * Is the patient Alert and Oriented? Yes * PCP DR JEFFERS IN [place], [place] * Pharmacy [facility] * Preadmission Environment Home with Family * ADLs Independent * Equipment Cane Catheter Supplies CPAP Crutch Elevated [place] Seat Enteral Feeding and Supplies Glucometer * Other Equipment DENIES ANY ADDITIONAL DME * List name and contact numbers for known caregivers / representatives who currently or will assist patient after discharge: CORINA APONTE- [phone]- DAUGHTER * Verbal permission to speak to the caregivers and representatives has been obtained from the patient. No * Community resources currently utilized None * Please name any agencies selected above. N/A * Additional services required to return to the preadmission environment? No * Can the patient safely return to the preadmission environment? No * Has this patient been hospitalized within the prior 30 days at any hospital? Yes Last DP export: 10/09/19 12:45 pm Patient Name: SHARON APONTE Page [id number] at 1352 All edits/amendments must be made on the electronic document DICTATION DATE: 10/09/19 1352 SCIENTIFIC AFFAIRS MANAGER: EMILY 10/09/19 1352 RPT#: [id number] DC DATE: STATUS: ADM IN [facility] [address] [place] [address] END OF REPORT
--- NOTE | 2019-10-09 14:00 | NUR ---
WALLED PATIENT TO ER EXIT TO MEET DAUGHTER.
== END 2019-10-09 14:00 | disposition left against medical advice (07) | DRG 280 ==
LOC: D.ER 12:08 → D.M2 12:58 → OBSVTIME 12:58 → D.CVICU 12:58
PROVIDERS: Family Medicine; Internal Medicine Interventional Cardiology; ADMIT Family Medicine; ATTEND Family Medicine
PROC: B2051ZZ Plain Radiography of Left Heart using Low Osmolar Contrast (ICD-10-PCS; 2019-10-08)
PROC: 4A023N7 Measurement of Cardiac Sampling and Pressure, Left Heart, Percutaneous Approach (ICD-10-PCS; 2019-10-08)
PROC: B2081ZZ Plain Radiography of Left Internal Mammary Bypass Graft using Low Osmolar Contrast (ICD-10-PCS; principal; 2019-10-08 14:30)
DX: I16.0 Hypertensive urgency (principal); G92 Toxic encephalopathy; I21.A1 Myocardial infarction type 2; E87.1 Hypo-osmolality and hyponatremia; I42.9 Cardiomyopathy, unspecified; I25.110 Atherosclerotic heart disease of native coronary artery with unstable angina pectoris; D53.9 Nutritional anemia, unspecified; E87.6 Hypokalemia; I10 Essential (primary) hypertension; E78.5 Hyperlipidemia, unspecified; E11.65 Type 2 diabetes mellitus with hyperglycemia; G40.909 Epilepsy, unspecified, not intractable, without status epilepticus; J45.909 Unspecified asthma, uncomplicated; K21.9 Gastro-esophageal reflux disease without esophagitis; F41.8 Other specified anxiety disorders; F17.200 Nicotine dependence, unspecified, uncomplicated

== ENCOUNTER 2020-07-30 10:27 | Inpatient (IN) | payer MEDICAID ==
[~2020-07-30] VITALS: Ht 160 cm; Wt 59.1 kg
--- NOTE | ~2020-07-30 | HEMODYNAMI ---
PATIENT:SHARON APONTE MEDICAL RECORD: [id number] : [birth year] [facility] AD[facility] DATE: 07/30/20 Generatedon:115:04 Patient name: SHARON APONTE Patient #: [id number] SSN: [id number] : 1975 Date of study: 08/11/2020 Page: Of Hemodynamic Procedure Report Patient Data Patient Demographics Procedure consent was obtained First Name: SHARON Gender: Female Last Name: FADI : 1975 Patient #: [id number] Age: 44 year(s) Race: Black SSN: [id number] Additional ID: [id number] Contact details Address: [place] [address] State: [place] City: [place] Zip code: [address] Past Medical History History of disease Date Diagnosis Comments CAD Allergies Allergen Reaction Date Comments Reported Other allergy 12/05/2018 CONTRAST- ORAL AND IV. PCN Other allergy 03/12/2019 Iodinated Contrast-Coded Penicillin-Coded Codeine Other allergy 10/08/2019 IODINE, PCN, CODEINE Admission Admission Data Admission Date: 07/30/2020 Admission Time: 11:05 Room #: [facility] Procedure Procedure Types Cath Procedure Peripheral Cath Diagnostic Procedure Miscellaneous Aspiration/Injection (Joint) Procedure Description Procedure Date Procedure Date: 08/11/2020 Procedure Start Time: 12:15 Procedure Staff Name Function Shashank Johnson RT Monitor Braxton Saha MD Performing Physician Fritz Ferro MD Admitting Physician Fritz Ferro MD Interpreting hackler doll wigs Damari Swan RN Nurse Chino Linton CRNA Additional personnel CLAUDETTE HINOJOSA RT Scrub Cassie Rosas RN Nurse Procedure Data Cath Procedure Fluoroscopy Diagnostic fluoroscopy Total fluoroscopy Time: 8.3 time: 8.3 min min Diagnostic fluoroscopy Total fluoroscopy dose: 191 dose: 191 mGy mGy Contrast Material Contrast Material Type Amount (ml) Isovue 300 50 Diagnostic catheters Device Type Used For End Catheter Placement Angiodynamics SOS OMNI 2 Aortic Root NON B 5FR 65CM catheter Angiography ([id number]) Krystle nAguiano 5FR. 100CM catheter ([id number]) Procedure Medications Medication Administration Route Dosage Lidocaine 1% added to field 20 Heparin Flush Bag added to field 3 bags (1000units/500ml NS) Heparin Bolus I.V. 3000 units Hemodynamics Rest Pre Cath Intra NCS Post Cath Medications Time Medication Route Dose Verified Delivered Reason Notes Effec tiveness by by 11:53:49 Lidocaine 1% added 20ml Braxton Limon used for to vial Maria A Saha procedure field MD AREVALO 11:54:22 Heparin Flush added 3 Braxton Limon used for Bag to bags Maria A Saha procedure (1000units/500ml field MD AREVALO NS) 12:25:25 Heparin Bolus I.V. 3000 Braxton Magana used for units Maria A odonnell MD, CRNA Procedure Log Time Note 11:47:38 Chino Linton CRNA present and monitoring patient for TIVA. 11:47:53 Shashank Johnson RT (R) (CV) sent for patient. Start room use. 11:48:01 Time tracking: Regular hours (M-F 7:00 - 5:00) 11:48:07 Plan of Care:Hemodynamics will remain stable., Cardiac rhythm will remain stable., Comfort level will be maintained., Respiratory function will remain adequate., Patient/ family verbilizes understanding of procedure., Procedure tolerated without complication., Recovers from procedure without complications.. 11:48:14 Patient received from ICU to IR Alert and oriented. Tansferred to table in Supine position. 11:48:16 Signed procedure consent form obtained from patient. 11:48:17 Warm blankets applied, and chanel hugger turned on for patient comfort. 11:48:26 Correct patient and procedure confirmed by team. 11:48:30 ECG and BP/O2 sat monitors applied to patient. 11:48:35 - 11:51:56 SEE ANESTHESIA NOTE FOR PRE PROCEDURE ANESTHESIA 11:52:17 - 11:52:23 Pre-op teaching completed and patient verbalized understanding. 11:52:23 Pre-procedure instructions explained to patient. 11:52:30 Use device set IR Diagnostic 11:52:32 ACIST Hand Control (15143) opened to sterile field. 11:52:32 ACIST Syringe (81906) opened to sterile field. 11:52:33 ACIST Manifold (34802) opened to sterile field. 11:52:34 Tegaderm 4 x 4 (1626W) opened to sterile field. 11:52:34 Sterile Angiographic Pack opened to sterile field. 11:52:34 Bag Decanter (2002S) opened to sterile field. 11:53:49 Lidocaine 1% 20ml vial added to field was administered by Braxton yarbrough MD; used for procedure; Verbal order read back and verified. 11:54:11 TUBING Contrast Injection High Pressure (WVV594B) opened to sterile field. 11:54:13 SHEATH 5FR Veyo (PTQ088) opened to sterile field. 11:54:13 Micropuncture VSI 4FR kit opened to sterile field. 11:54:14 MENDEZ 260 wire (C68985) opened to sterile field. 11:54:22 Heparin Flush Bag (1000units/500ml NS) 3 bags added to field was administered by Braxton Saha MD; used for procedure; Verbal order read back and verified. 12:02:54 A Angiodynamics SOS OMNI 2 NON B 5FR 65CM catheter ([id number]) was advanced over the wire and used for Aortic Root Angiography. 12:14:27 Right groin area was prepped with chlora-prep and draped in sterile fashion 12:14:28 Alarms reviewed by R. N. 12:14:29 Sharps counted by scrub and verified by R.N. 12:14:32 Physician arrived 12:14:33 --------ALL STOP TIME OUT------ 12:14:34 Final Timeout: patient, procedure, and site verified with staff and physician. All members of the team are in agreement. 12:14:36 Right groin site verified by team. 12:14:39 Fire Safety Assessment: A--An alcohol-based skin anteseptic being used preoperatively., C--Open oxygen or nitrous oxide is being used. 12:14:50 Sedation plan: General Anesthesia Medication:General Anesthesia 12:15:01 3a) 45-59 Moderately reduced kidney function. 12:15:26 Maximum allowable contrast dose (3.7 X eGFR X 0.75)158.17 ml. 12:15:51 Procedure started. 12:15:52 Full Disclosure recording started 12:15:56 Local anesthetic to right femoral artery with Lidocaine 1% by Braxton Saha MD.INITIAL ACCESS ONLY 12:25:00 INFLATOR BasixTOUCH (YE2136) opened to sterile field. 12:25:25 Heparin Bolus 3000 units I.V. was administered by Chino Linton CRNA; used for procedure; Verbal order read back and verified. 12:25:28 SHEATH 6FR Destination (RSR01) opened to sterile field. 12:27:29 CHOICE PT Extra Support J 300cm guide wire ([id number]) opened to steril e field. 12:33:32 Inflate balloon Inflation number: 1 A VIATRAC 4 x 2 x 135 balloon ([id number]) was prepped and advanced across the Undefined1 , then inflated to 0 MARY for 0:00 (min:sec) . 12:34:33 Place stent Inflation Number: 2 A HERCULINK ELITE 6 X 15 X 80 stent ([id number]) was prepped and advanced across the Undefined1 . The stent was deployed at 0 MARY for 0:00 (min:sec) . 12:38:34 SHEATH DESTINATION 6FR X 65CM (RSP01) opened to sterile field. 12:40:57 A [facility] Anguiano 5FR. 100CM catheter ([id number]) was advanced over the wire and used for . 12:42:10 ROADRUNNER .035 260 glide wire (X02032) opened to sterile field. 12:51:25 Place stent Inflation Number: 3 A Visipro 7 x 27 x 135 Stent ([id number]) was prepped and advanced across the Undefined1 . The stent was deployed at 0 MARY for 0:00 (min:sec) . 12:52:12 ANGIOSEAL-VIP PLUS 6 FR opened to sterile field. 12:53:35 Procedure ended.(Physican Out) 12:54:04 Fluoroscopy time 08.30 minutes. 12:54:09 Fluoroscopy dose: 191 mGy 12:54:09 Flurop Dose total: 191 12:54:13 Contrast amount:Isovue 300 50ml. 12:54:15 Insertion/operative site no bleeding no hematoma. 12:54:23 Post-op/insertion site Right Femoral artery dressed using a 4 x 4 and Tegaderm. 12:54:42 SEE ANESTHESIA NOTE FOR POST PROCEDURE ANESTHESIA 13:10:13 Report given to ICU. 13:10:20 Patient transfered to ICU with Bed. 13:10:59 Full Disclosure recording stopped Intervention Summary Intervention Notes Time ActionType Lesion and Equipment Used Action# Pressure Duration Attributes 12:33:32 Inflate Undefined1 VIATRAC 4 x 2 x 1 0 00:00 balloon 135 balloon ([id number]) 12:34:33 Place stent Undefined1 HERCULINK ELITE 6 2 0 00:00 X 15 X 80 stent ([id number]) 12:51:25 Place stent Undefined1 Visipro 7 x 27 x 3 0 00:00 135 Stent ([id number]) Device Usage Item Name Manufacture Quantity Catalog Number Hospital Part Curr ent Minimal Lot# / Charge Number Stock Stock Serial# Code ACIST Syringe Acist Medical 1 99249 567709 294335 5103 57 20 (55762) Systems Inc ACIST Hand Acist Medical 1 91515 101885 841245 0268 89 5 Control (33191) Systems Inc ACIST Manifold Acist Medical 1 40733 301050 558907 1349 04 5 (46935) Systems Inc Bag Decanter Microtek 1 2001S 823694 86918 9828 03 5 (2001S) Medical Inc. Sterile Cardinal 1 [id number] 839647 9835 96 5 Angiographic Pack Health Tegaderm 4 x 4 3M 1 1626W 839602 556647 0265 65 5 (1626W) TUBING Contrast Merit Medical 1 OMM940V 502240 516778 4432 28 5 Injection High Pressure (QEQ761H) Micropuncture VSI VSI VASCULAR 1 7266V 740714 4693 38 5 4FR kit SOLUTIONS SHEATH 5FR Terumo 1 PGH472 763374 144339 1422 09 5 Veyo (DQP847) MENDEZ 260 wire Cook Medical 1 X16756 320198 326651 4730 91 5 (V55082) Angiodynamics SOS Angiodynamics 1 04990682 857524 95146 9998 82 5 OMNI 2 NON B 5FR 65CM catheter (10696397) INFLATOR Peloton Document Solutions Medical 1 NY0418 473707 017856 8126 97 5 BasixTOUCH (CI6562) SHEATH 6FR Terumo 1 RSR01 649707 98558 9994 17 5 Destination (RSR01) CHOICE PT Extra Byron 1 [id number] 677209 590439 1877 71 5 [id number] Support J 300cm Scientific guide wire ([id number]) VIATRAC 4 x 2 x Flores 1 0263342-85 907877 767243 1922 88 5 135 balloon Vascular ([id number]) HERCULINK ELITE 6 Flores 1 4804031-91 737717 6960 97 5 [id number] X 15 X 80 stent Vascular ([id number]) SHEATH Terumo 1 RSP01 970359 92228 9999 89 1 DESTINATION 6FR X 65CM (RSP01) Merit Impress Peloton Document Solutions Medical 1 [id number] 656748 7660 29 5 Anguiano 5FR. 100CM catheter (322353DHH) ROADRUNNER .035 Cook Medical 1 J34185 224473 756328 4938 77 5 [id number] 260 glide wire (P62663) Visipro 7 x 27 x Medtronic 1 [id number] 341845 982330 9572 94 5 [id number] 135 Stent ([id number]) ANGIOSEAL-VIP St Sonny 1 551758 623045 923833 4473 87 5 [id number] PLUS 6 FR Signature Audit [place] Stage Time Signature Unsigned Intra-Procedure 08/11/2020 Shashank 1:10:48 PM [place] RT (R) (CV) [facility] [address] [place] [address]
--- NOTE | 2020-07-30 10:30 | NUR ---
ARRIVED VIA EMS FROM [facility] FOR CARDIO CONSULT. VS STABLE.
[2020-07-30 11:13] VITALS: BP 170/101
--- NOTE | 2020-07-30 14:05 | NUR ---
REPORT CALLED TO AYUSH OSWALD ON M2 PT IS MOVING TO ROOM 212
[2020-07-30 14:24] LABS: BASOPHILS 0.2 % (0-2); EOSINOPHILS 1.4 % (0-7); HEMATOCRIT 31.4 % (36.0-48.0); HEMOGLOBIN 9.6 g/dL (12-16); IMMATURE GRANULOCYTES 0.2 % (0-5); LYMPHOCYTE ABS# 1.89 10x3/uL (1.18-3.74); MCH 25.7 pg (26.0-34.0); MCHC 30.6 g/dL (31.0-37.0); MCV 84.2 fL (80.0-100.0); MEAN PLATELET VOLUME 10.3 fL (7.4-10.4); MONOCYTES 11.6 % (2-11); NEUTROPHIL ABS# 3.57 10x3/uL (1.56-6.13); NEUTROPHILS 56.6 % (40-80); PLATELET COUNT 280 10x3/uL (130-400); RBC 3.73 10x6/uL (4.00-5.40); RDW 15.2 % (11.5-14.5); WBC 6.3 10x3/uL (4.8-10.8)
[2020-07-30 14:33] LABS: ANION GAP 9.6 mmol/L (8-16); CALCIUM 8.5 mg/dL (8.5-10.1); CARBON DIOXIDE 26.9 mmol/L (21.0-32.0); CREATININE - SERUM 1.2 mg/dL (0.6-1.3); POTASSIUM - SERUM 4.5 mmol/L (3.5-5.1)
[2020-07-30 14:47] LABS: ALBUMIN 2.7 g/dL (3.4-5.0); BILIRUBIN - TOTAL 0.11 mg/dL (0.2-1.3); MAGNESIUM - SERUM 1.8 mg/dL (1.8-2.4); PROTEIN - SERUM 6.4 g/dL (6.4-8.2); THYROID STIMULATING HORMONE 0.69 uIU/mL (0.36-3.74)
[2020-07-30 14:56] LABS: CKMB 2.1 U/L (0.0-3.6); CREATINE KINASE 38 UL (21-215); TROPONIN-I 0.042 ng/mL (0.000-0.060)
--- NOTE | 2020-07-30 14:56 | NUR ---
PT TO FLOOR FROM ER ON CART, HAD TO ASSIST TO BED TRANSFER. COMPLAINTS OF NAUSEA ON ARRIVAL, MEDICATED AND IVF INITIATED. DR HORNER IN ROOM SEEING PT AT PRESENT.
[2020-07-30] MEDS ORDERED: METOPROLOL TART50 MG PO (15:02)
[2020-07-30 15:58] LABS: % SATURATION 7 % (15-55); IRON 27 ug/dl (35-150); TOTAL IRON BIND CAPACITY 343 ug/dl (260-445); UNSAT IRON BIND CAPACITY 316 ug/dl (150-375)
--- NOTE | 2020-07-30 17:52 | NUR ---
PT WITH COMPLAINTS OF INCREASED CHEST PAIN. TYLENOL GIVEN EARLIER BUT NO BETTER. CALL PLACED TO TABATHA TAYLOR AND ORDERS RECEIVED.
[2020-07-30 19:55] LABS: BILIRUBIN NEGATIVE (NEGATIVE); KETONE NEGATIVE (NEGATIVE); NITRITE NEGATIVE (NEGATIVE); UROBILINOGEN NORMAL mg/dL (< 2)
[2020-07-30 20:20] LABS: UDS - AMPHET NEGATIVE QUAL (NEGATIVE); UDS - BARB NEGATIVE QUAL (NEGATIVE); UDS - BENZO NEGATIVE QUAL (NEGATIVE); UDS - COCAINE NEGATIVE QUAL (NEGATIVE); UDS - OPIATE POSITIVE QUAL (NEGATIVE); UDS - PCP NEGATIVE QUAL (NEGATIVE); UDS - THC POSITIVE QUAL (NEGATIVE)
[2020-07-30 21:09] LABS: CKMB 2.2 U/L (0.0-3.6); CREATINE KINASE 42 UL (21-215); TROPONIN-I 0.046 ng/mL (0.000-0.060)
[2020-07-30 22:11] VITALS: BP 129/81
--- NOTE | 2020-07-30 23:34 | NUR ---
PT C/O CHEST PAIN 10/17 AT 2300 PT HAS BEEN REQUESTING MORE PAIN MEDICATION SINCE 2200. PT WAS TOLD NEXT MORPHINE DOSE CAN BE GIVEN AT MIDNIGHT. PT OFFERED TYLENOL AND PT REFUSED STATING IT WILL MAKE HER NAUSEOUS. PT OFFERED ZOFRAN TO OFFSET NAUSEA, PT REFUSED. RN OFFERED TO CALL MD FOR NITRO PASTE, PT STATES SHE CANNOT USE NITRO PASTE BECAUSE IT "TEARS HER SKIN UP". RN THEN TALKED TO THE PATIENT ABOUT SUBLINGUAL NITRO, PT STATES "I AM NOT TAKING THAT BECAUSE IT IS NOT FOR PAIN, ITS TO OPEN UP MY VESSELS" EDUCATION DONE WITH PATIENT ON NITRO, PT STILL REFUSING. RN ASKED PATIENT WHAT SHE THINKS WOULD HELP. PT STATES SHE NEEDS HER HOME OXYCODONE 10MG TO BE GIVEN IN BETWEEN MORPHINE DOSAGES. PT STATES SHE DIDN'T WANT ME TO CALL THE DOCTOR BECAUSE "HE PROBALLY WONT GET OUT OF BED TO APPROVE THAT" AND SHE "HOPES THE NEXT DOSE OF MORPHINE KNOCKS HER OUT UNTIL THE MORNING". VITALS WERE RECENTLY TAKEN AND WERE WITHIN NORMAL LIMITS. PT DOES NOT APPEAR TO BE IN DISTRESS AT THIS TIME. WILL CONTINUE TO MONITOR PT
[2020-07-31 02:11] VITALS: BP 145/92
[2020-07-31 02:37] LABS: BASOPHILS 0.1 % (0-2); EOSINOPHILS 0 % (0-7); HEMATOCRIT 32.5 % (36.0-48.0); IMMATURE GRANULOCYTES 0.1 % (0-5); LYMPHOCYTE ABS# 0.77 10x3/uL (1.18-3.74); LYMPHOCYTES 10.5 % (15-50); MCH 25.8 pg (26.0-34.0); MCHC 30.8 g/dL (31.0-37.0); MEAN PLATELET VOLUME 10.6 fL (7.4-10.4); MONOCYTES 0.7 % (2-11); NEUTROPHILS 88.6 % (40-80); PLATELET COUNT 335 10x3/uL (130-400); RBC 3.87 10x6/uL (4.00-5.40); RDW 15.2 % (11.5-14.5); WBC 7.3 10x3/uL (4.8-10.8)
[2020-07-31 02:57] LABS: ALBUMIN 2.7 g/dL (3.4-5.0); ALKALINE PHOSPHATASE 98 U/L (30-120); BILIRUBIN - TOTAL 0.19 mg/dL (0.2-1.3); CALCIUM 8.5 mg/dL (8.5-10.1); CARBON DIOXIDE 21.7 mmol/L (21.0-32.0); CHLORIDE - SERUM 105 mmol/L (98-107); CKMB 1.8 U/L (0.0-3.6); CREATINE KINASE 38 UL (21-215); CREATININE - SERUM 1.4 mg/dL (0.6-1.3); PROTEIN - SERUM 6.6 g/dL (6.4-8.2); SODIUM 137 mmol/L (136-145); TROPONIN-I 0.022 ng/mL (0.000-0.060); UREA NITROGEN 15 mg/dL (7-18); eGFR NON AFRICAN AMERICAN 43 mL/min (90-120)
[2020-07-31 03:03] LABS: ALT (SGPT) 29 U/L (10-68); CALC OSMOLALITY 286 mosm/kg (275-300); GLUCOSE 322 mg/dL (74-106)
[2020-07-31 05:25] VITALS: BP 150/96
--- NOTE | 2020-07-31 07:54 | NUR ---
DOWN FOR SCAN.
--- NOTE | 2020-07-31 10:42 | NUR ---
RESTING IN BED. DENIES ANY NEEDS AT THIS TIME. DISCHARGE ORDER IN. CALL LIGHT IN REACH.
[2020-07-31 12:58] VITALS: BP 189/102
[2020-07-31 14:34] VITALS: BMI 22.9
[2020-07-31 16:00] VITALS: BP 198/88
[2020-07-31 20:19] VITALS: BP 154/98
[2020-08-01] VITALS (12 sets, daily range): BP systolic 138–178; BP diastolic 72–100
--- NOTE | 2020-08-01 01:02 | NUR ---
BP 170/100 IN LEFT ARM, 190/105 IN RIGHT
[2020-08-01 06:21] LABS: BASOPHILS 0.1 % (0-2); EOSINOPHILS 0 % (0-7); HEMATOCRIT 32.3 % (36.0-48.0); IMMATURE GRANULOCYTES 0.2 % (0-5); LYMPHOCYTE ABS# 2.23 10x3/uL (1.18-3.74); LYMPHOCYTES 15.7 % (15-50); MCH 25.8 pg (26.0-34.0); MCV 83.5 fL (80.0-100.0); MEAN PLATELET VOLUME 10.9 fL (7.4-10.4); MONOCYTES 5.6 % (2-11); NEUTROPHIL ABS# 11.12 10x3/uL (1.56-6.13); NEUTROPHILS 78.4 % (40-80); PLATELET COUNT 320 10x3/uL (130-400); RBC 3.87 10x6/uL (4.00-5.40); RDW 15.4 % (11.5-14.5)
[2020-08-01 06:24] LABS: WBC 14.2 10x3/uL (4.8-10.8)
--- NOTE | 2020-08-01 07:00 | NUR ---
RECEIVED REPORT. ASSUMED CARE OF PATIENT. PATIENT RESTING WITH EYES CLOSED, RESP EVEN AND UNLABORED, EASILY AROUSED. WHITE BOARD UPDATED, BEDSIDE SHIFT REPORT COMPLETE. PATIENT KEPT NPO AFTER MIDNIGHT DUE TO PATIENT CLAIMS SHE IS HAVING A PROCEDURE THIS AM?? NO ORDERS FOR ANY INTERVENTION FOR THIS PATIENT. CALL LIGHT WITHIN REACH. NO DISTRESS.
[2020-08-01 07:06] LABS: ALBUMIN 2.8 g/dL (3.4-5.0); BILIRUBIN - TOTAL 0.13 mg/dL (0.2-1.3); CALCIUM 9.1 mg/dL (8.5-10.1); CARBON DIOXIDE 25.2 mmol/L (21.0-32.0); CREATININE - SERUM 1.3 mg/dL (0.6-1.3); PROTEIN - SERUM 6.5 g/dL (6.4-8.2)
[2020-08-01 07:11] LABS: POTASSIUM - SERUM 4.2 mmol/L (3.5-5.1)
--- NOTE | 2020-08-01 07:37 | NUR ---
SPOKE WITH GENNY IN PHARMACY TO ADJUST INSULIN TIME TO REFLECT CLOSER TO MEAL SCHEDULE 0600/1200/1800/0000.
--- NOTE | 2020-08-01 10:17 | NUR ---
MEDICATED WITH 4MG OF MORPHINE ORDERED THAT PATIENT CAN HAVE BETWEEN 1-4MG ACCORDING TO LEVEL OF CHEST PAIN. PAIN LEVEL 10/10. NO DISTRESS. CALL LIGHT WITHIN REACH.
--- NOTE | 2020-08-01 11:33 | NUR ---
FSBS 121. NO INSULIN PER SLIDING SCALE. DR.MC LANDRUM AT BEDSIDE FOR CONSULTATION AT THIS TIME. NO DISTRESS.
[2020-08-01 12:11] LABS: PLT FUNCT.(P2Y12) PLAVIX 226 PRU (194-418)
[2020-08-01 13:02] LABS: HEMATOCRIT 32.5 % (36.0-48.0); MCH 25.6 pg (26.0-34.0); MCHC 30.8 g/dL (31.0-37.0); MCV 83.1 fL (80.0-100.0); MEAN PLATELET VOLUME 10.6 fL (7.4-10.4); RBC 3.91 10x6/uL (4.00-5.40); RDW 15.6 % (11.5-14.5)
[2020-08-01 13:04] LABS: WBC 10.5 10x3/uL (4.8-10.8)
[2020-08-01 13:10] LABS: APTT 24.6 SECONDS (22.8-39.4); INR 1.11 (0.85-1.17); PROTIME 13.2 SECONDS (11.6-15.0)
--- NOTE | 2020-08-01 13:13 | NUR ---
HEPARIN BOLUS AND CONTINUOUS INFUSION INITIATED AT THIS TIME PER . STILL AWAITING TRANSFER OF PATIENT TO CVICU. PATIENT RESTING WITH EYES CLOSED. CALL LIGHT WITHIN REACH. NO DISTRESS.
--- NOTE | 2020-08-01 14:14 | NUR ---
CONTINUE TO AWAIT TRANSFER TO CVICU. NO DISTRESS.
--- NOTE | 2020-08-01 14:23 | NUR ---
REPORT CALLED TO MATEUSZ IN CVICU AT THIS TIME.
--- NOTE | 2020-08-01 14:31 | NUR ---
MEDICATED FOR PAIN AT THIS TIME.
--- NOTE | 2020-08-01 14:40 | NUR ---
REC'D TO CV 02 VIA WHEELCHAIR. TO BED WITH MININAL ASSISTANCE. CONNECTED TO MONITOR AND VS OBTAINED.
[2020-08-02] VITALS (28 sets, daily range): BP systolic 135–212; BP diastolic 68–120
[2020-08-02 06:45] LABS: BASOPHILS 0.2 % (0-2); EOSINOPHILS 1.3 % (0-7); HEMATOCRIT 32.3 % (36.0-48.0); IMMATURE GRANULOCYTES 0.2 % (0-5); LYMPHOCYTE ABS# 3.84 10x3/uL (1.18-3.74); LYMPHOCYTES 35.9 % (15-50); MCH 25.8 pg (26.0-34.0); MCV 83.2 fL (80.0-100.0); MEAN PLATELET VOLUME 10.9 fL (7.4-10.4); NEUTROPHIL ABS# 6.05 10x3/uL (1.56-6.13); NEUTROPHILS 56.4 % (40-80); PLATELET COUNT 329 10x3/uL (130-400); RBC 3.88 10x6/uL (4.00-5.40); RDW 15.4 % (11.5-14.5); WBC 10.7 10x3/uL (4.8-10.8)
[2020-08-02 06:56] LABS: ALBUMIN 2.8 g/dL (3.4-5.0); ANION GAP 14.3 mmol/L (8-16); BILIRUBIN - TOTAL 0.14 mg/dL (0.2-1.3); CALCIUM 8.6 mg/dL (8.5-10.1); CARBON DIOXIDE 25.7 mmol/L (21.0-32.0); CREATININE - SERUM 1.5 mg/dL (0.6-1.3); PROTEIN - SERUM 6.5 g/dL (6.4-8.2)
--- NOTE | 2020-08-02 06:59 | NUR ---
0530- PATIENT COMPLAINTS OF CHEST PAIN. DR ZELAYA CONTACTED AND ORDER RECIEVED FOR NITRO GTT. 0550- UPON ENTERING PATIENT ROOM, PATIENT STATES SHE CANNOT HAVE NITRO GTT DUE TO ITCHING AND PASTE AND PATCHES CAUSE RASH AND BURNING. 0600-DR ZELAYA CONTACTED AGAIN ORDER FOR NITRO SL AND VASOTEC OF NITRO DOES NOT IMPROVE CHEST PAIN. 0605- PATIENT UPSET THAT MORPHINE 1 MG GIVEN ORDERED AND STATES SHE DOES NOT WANT ANY MORE BP MEDICATION THAT HER BP WILL DECREASE WHEN SHE GETS IN BED AND RESTS. 0650- ONCOMING NURSE ARRIVED-FEELS COMFORTABLE ADMINISTERING MORPHINE 4MG AND WILL CLARIFY DUPLICATE ORDER WITH RANGE ENTERED WITHOUT PARAMETERS. BIBIANARN
--- NOTE | 2020-08-02 09:23 | NUR ---
0700: REC'D AWAKE AND COMPLAINING CONTINUED CHEST PRESSURE. ADDITIONAL 3 MG MORPHINE GIVEN PER PATIENT REQUEST FOR TOTAL OF 4 MG. PATIENT CRYING. REASSURE GIVEN THAT WE WOULD GET HER PAIN AND BP UNDER CONTROL.
[2020-08-03] VITALS (30 sets, daily range): BP systolic 138–212; BP diastolic 82–106
[2020-08-03 04:26] LABS: BASOPHILS 0.1 % (0-2); EOSINOPHILS 1.6 % (0-7); HEMATOCRIT 33.1 % (36.0-48.0); HEMOGLOBIN 10.3 g/dL (12-16); IMMATURE GRANULOCYTES 0.2 % (0-5); LYMPHOCYTE ABS# 3.13 10x3/uL (1.18-3.74); LYMPHOCYTES 35.1 % (15-50); MCH 25.8 pg (26.0-34.0); MCHC 31.1 g/dL (31.0-37.0); MCV 82.8 fL (80.0-100.0); MEAN PLATELET VOLUME 10.9 fL (7.4-10.4); MONOCYTES 11.9 % (2-11); NEUTROPHIL ABS# 4.57 10x3/uL (1.56-6.13); NEUTROPHILS 51.1 % (40-80); PLATELET COUNT 332 10x3/uL (130-400); RDW 15.3 % (11.5-14.5); WBC 8.9 10x3/uL (4.8-10.8)
[2020-08-03 04:42] LABS: ALBUMIN 2.8 g/dL (3.4-5.0); ANION GAP 11.8 mmol/L (8-16); BILIRUBIN - TOTAL 0.15 mg/dL (0.2-1.3); CALCIUM 8.5 mg/dL (8.5-10.1); CARBON DIOXIDE 27.1 mmol/L (21.0-32.0); CREATININE - SERUM 1.5 mg/dL (0.6-1.3); POTASSIUM - SERUM 3.9 mmol/L (3.5-5.1); PROTEIN - SERUM 6.6 g/dL (6.4-8.2)
--- NOTE | 2020-08-03 05:25 | NUR ---
PATIENT REQUESTED PAIN MEDS THROUGHOUT NIGHT FOR CHEST PAIN. PATIENT BP ELEVATED DESPITE PRN MEDS ADMINISTERED. CONTACTED TRAFFIC SIGNAL MECHANIC SPORTS BOOK WRITER AND INFORMED OF BP ELEVATION- STATES NEPHRO SAW TODAY AND FEEL THAT BP DRASTICALLY ELEVATED D/T STENOSIS AND MOVE BP CUFF TO OTHER ARM. BP CUFF MOVED TO LEFT ARM AND BP IMPROVED.Cristhian BRITO RN
--- NOTE | 2020-08-03 14:34 | NUR ---
1300 REPORT RECIEVED AND CARE ASSUMED OF PATIENT.. PATIENT IS RESTING QUIETLY WITH EYES CLOSED AT THIS TIME.. HEPARIN INFUDING AT 900 UNITS AND NS AT 30CC/HR INTO LEFT PIV.. ROOM AIR O2 1400 DAUGHTER IN VISITING PATIENT.. UPDATE IS GIVEN TO DAUGHTER RE PLAN FOR PROCEDURE.. EXPLAINED THAT DR MARCH IS AWAITING CATH REPORTS FROM PTS PREVIOUS CATH AND IF UNABLE TO OBTAIN A CATH WILL BE DONE HERE PRIOR TO ANY DECISION MADE FOR TX. 1415 PT C/O SHOULDER PAIN .. MORPHINE 4MG GIVEN PER E JUN...
--- NOTE | 2020-08-03 19:00 | NUR ---
BEDSIDE REPORT RECIEVED, PT RESTING IN BED WATCHING TV, AMBULATED TO BATHROOM INDEPENDENTLY WITH EVEN/STEADY GAIT. SP02 100% ON ROOM AIR. 20G PIV TO LEFT FA WITH NS @75ML/HR AND HEPARIN AT SET RATE OF 9 UNITS/HR. PT AAOX4, NO DISTRESS NOTED, DISCUSSED MD ORDER FOR NPO AFTER MIDNIGHT AND NEED TO HAVE CHG BATH BY RESPIRATORY SCIENTIST, PT DECLINES BATH AT BEDTIME AND AGREED TO TAKE ONE @ 0400, SANDWICH PLATE GIVEN PER PT REQUEST. PT REPORTS PERSISTANT PAIN TO LEFT SHOULDER THAT IS RADIATING AND SHARP, WILL GIVE PRN AT NEXT AVAILABLE TIME, VITALS STABLE. GALL LIGHT WITHIN REACH, NO ACUTE DISTRESS NOTED. PT AGREES TO CALL FOR OOB ASSIST WITH MONITOR CORDS AND IV PUMP.
[2020-08-04] VITALS (18 sets, daily range): BP systolic 104–185; BP diastolic 64–116
--- NOTE | 2020-08-04 02:40 | NUR ---
PT UP TO BATHROOM, AGREED TO TAKE CHG BATH AT THIS TIME, PT IN SHOWER CHAIR GIVING SELF BATH WITH CHG AND WARM WATER IN BASIN, LINENS CHANGED, CLEAN GOWN PLACED AND PT BRUSHED TEETH. AFTER ACTIVITY, PRN MORPHINE GIVEN PER PT REQUEST FOR BACK PAIN AND PRN HYDRALAZINE GIVEN FOR SBP ABOVE 170. NO COMPLAINTS OR UNMET NEEDS VOICED AT THIS TIME. CALL LIGHT WITHIN REACH. WILL CONT TO MONITOR.
[2020-08-04 04:34] LABS: BASOPHILS 0.1 % (0-2); EOSINOPHILS 1.6 % (0-7); HEMATOCRIT 37.4 % (36.0-48.0); HEMOGLOBIN 11.8 g/dL (12-16); IMMATURE GRANULOCYTES 0.2 % (0-5); LYMPHOCYTES 32.3 % (15-50); MCH 25.8 pg (26.0-34.0); MCHC 31.6 g/dL (31.0-37.0); MCV 81.7 fL (80.0-100.0); MEAN PLATELET VOLUME 10.7 fL (7.4-10.4); NEUTROPHIL ABS# 4.75 10x3/uL (1.56-6.13); NEUTROPHILS 54.8 % (40-80); PLATELET COUNT 358 10x3/uL (130-400); RBC 4.58 10x6/uL (4.00-5.40); WBC 8.7 10x3/uL (4.8-10.8)
[2020-08-04 04:38] LABS: ALBUMIN 3.4 g/dL (3.4-5.0); ANION GAP 11.5 mmol/L (8-16); BILIRUBIN - TOTAL 0.28 mg/dL (0.2-1.3); CALCIUM 9.2 mg/dL (8.5-10.1); CARBON DIOXIDE 27.4 mmol/L (21.0-32.0); CREATININE - SERUM 1.3 mg/dL (0.6-1.3); POTASSIUM - SERUM 3.9 mmol/L (3.5-5.1); PROTEIN - SERUM 7.8 g/dL (6.4-8.2)
--- NOTE | 2020-08-04 06:54 | NUR ---
PRN IVP HYDRALAZINE GIVEN FOR BP 181/103.
--- NOTE | 2020-08-04 19:44 | NUR ---
RECIEVED UP IN BE WITH EYES OPEN AND TV ON. ALERT AND ORIENTED X4. O2@ 3 LITERS PER N/C. HAS A LT IJ WITH DOUBLE LUMEN. DSG TO RT AND LT CHEST. POST OP PACEMAKER PLACEMENT TO RT CHEST. LEFT ARM RED AND SWOLLEN. SLING TO RT ARM. EDUCATED ON NOT PUTTING ARM ABOVE HER HEAD. VERBAL AKNOWLEDEMENT GIVEN.
--- NOTE | 2020-08-04 19:57 | NUR ---
RECIEVED FROM CVICU. ALERT AND ORIETNED X4. UP AD HARINI. DENIES ANY NEEDS. C/O PAIN MEDICATION. EXPLAINED TO USE HER CALL LIGHT WHEN SHE NEEDED IT. NO OTHER NEEDS VOICED.
[2020-08-05] VITALS (7 sets, daily range): BP systolic 140–188; BP diastolic 82–113
--- NOTE | 2020-08-05 01:44 | NUR ---
B/P 4193/92 APRESOLINE IV GIVEN. WILL RECHECK.
[2020-08-05 05:07] LABS: BASOPHILS 0.1 % (0-2); EOSINOPHILS 2.4 % (0-7); HEMATOCRIT 36.9 % (36.0-48.0); HEMOGLOBIN 11.6 g/dL (12-16); IMMATURE GRANULOCYTES 0.2 % (0-5); LYMPHOCYTE ABS# 2.74 10x3/uL (1.18-3.74); LYMPHOCYTES 33.1 % (15-50); MCH 25.6 pg (26.0-34.0); MCHC 31.4 g/dL (31.0-37.0); MCV 81.3 fL (80.0-100.0); MEAN PLATELET VOLUME 10.7 fL (7.4-10.4); NEUTROPHIL ABS# 4.39 10x3/uL (1.56-6.13); NEUTROPHILS 53.2 % (40-80); PLATELET COUNT 376 10x3/uL (130-400); RBC 4.54 10x6/uL (4.00-5.40); RDW 14.7 % (11.5-14.5); WBC 8.3 10x3/uL (4.8-10.8)
[2020-08-05 05:39] LABS: ALBUMIN 3.5 g/dL (3.4-5.0); ANION GAP 13.9 mmol/L (8-16); BILIRUBIN - TOTAL 0.26 mg/dL (0.2-1.3); CALCIUM 9.2 mg/dL (8.5-10.1); CARBON DIOXIDE 26.2 mmol/L (21.0-32.0); CREATININE - SERUM 1.3 mg/dL (0.6-1.3); POTASSIUM - SERUM 4.1 mmol/L (3.5-5.1); PROTEIN - SERUM 7.8 g/dL (6.4-8.2)
[2020-08-06 05:09] VITALS: BP 206/101
[2020-08-06 08:17] VITALS: BP 179/114
[2020-08-06 10:22] LABS: BASOPHILS 0.1 % (0-2); EOSINOPHILS 3.1 % (0-7); HEMATOCRIT 34.6 % (36.0-48.0); IMMATURE GRANULOCYTES 0.2 % (0-5); LYMPHOCYTE ABS# 2.94 10x3/uL (1.18-3.74); LYMPHOCYTES 33.7 % (15-50); MCH 25.8 pg (26.0-34.0); MCHC 31.8 g/dL (31.0-37.0); MCV 81.2 fL (80.0-100.0); MEAN PLATELET VOLUME 10.4 fL (7.4-10.4); MONOCYTES 14.7 % (2-11); NEUTROPHIL ABS# 4.21 10x3/uL (1.56-6.13); NEUTROPHILS 48.2 % (40-80); PLATELET COUNT 330 10x3/uL (130-400); RBC 4.26 10x6/uL (4.00-5.40); RDW 14.5 % (11.5-14.5); WBC 8.7 10x3/uL (4.8-10.8)
[2020-08-06 10:46] LABS: ALBUMIN 3.2 g/dL (3.4-5.0); ANION GAP 13.8 mmol/L (8-16); BILIRUBIN - TOTAL 0.28 mg/dL (0.2-1.3); CALCIUM 9.3 mg/dL (8.5-10.1); CARBON DIOXIDE 24.5 mmol/L (21.0-32.0); CREATININE - SERUM 1.2 mg/dL (0.6-1.3); POTASSIUM - SERUM 4.3 mmol/L (3.5-5.1); PROTEIN - SERUM 7.4 g/dL (6.4-8.2)
[2020-08-06 11:36] VITALS: BP 187/96
[2020-08-06 12:31] VITALS: Ht 160 cm; Wt 59.1 kg
[2020-08-06 15:58] VITALS: BP 171/78
[2020-08-06 20:00] VITALS: BP 188/94
--- NOTE | 2020-08-06 20:05 | NUR ---
REPORT RECEIVED, GA A&O, UP IN BED ON PHONE. NO S/S OF DISTRESS OBSERVED. RR EVEN & UNLABORED ON RA. BED LOCKED AND LOWERED, CL IN REACH. ASSESSMENT COMPLETE. WILL CONT POC.
[2020-08-07] VITALS: BP 173/87
[2020-08-07 04:00] VITALS: BP 198/82
[2020-08-07 06:01] LABS: INR 1.05 (0.85-1.17); PROTIME 12.7 SECONDS (11.6-15.0)
[2020-08-07 06:03] LABS: APTT 79.7 SECONDS (22.8-39.4); BASOPHILS 0.1 % (0-2); EOSINOPHILS 0.8 % (0-7); HEMATOCRIT 32.8 % (36.0-48.0); HEMOGLOBIN 10.1 g/dL (12-16); IMMATURE GRANULOCYTES 0.1 % (0-5); LYMPHOCYTE ABS# 1.11 10x3/uL (1.18-3.74); LYMPHOCYTES 14.5 % (15-50); MCH 25.3 pg (26.0-34.0); MCHC 30.8 g/dL (31.0-37.0); MCV 82.2 fL (80.0-100.0); MEAN PLATELET VOLUME 11.6 fL (7.4-10.4); MONOCYTES 3.1 % (2-11); NEUTROPHIL ABS# 6.25 10x3/uL (1.56-6.13); NEUTROPHILS 81.4 % (40-80); PLATELET COUNT 305 10x3/uL (130-400); RBC 3.99 10x6/uL (4.00-5.40); RDW 14.5 % (11.5-14.5); WBC 7.7 10x3/uL (4.8-10.8)
[2020-08-07 06:06] LABS: ALBUMIN 3.2 g/dL (3.4-5.0); ANION GAP 15.7 mmol/L (8-16); BILIRUBIN - TOTAL 0.19 mg/dL (0.2-1.3); CALCIUM 8.5 mg/dL (8.5-10.1); CARBON DIOXIDE 24.8 mmol/L (21.0-32.0); CREATININE - SERUM 1.4 mg/dL (0.6-1.3); POTASSIUM - SERUM 4.5 mmol/L (3.5-5.1); PROTEIN - SERUM 7.3 g/dL (6.4-8.2)
[2020-08-07 10:56] VITALS: BP 113/79
--- NOTE | 2020-08-07 11:10 | NUR ---
YELLING OUT IN PAIN AND THRASHING AROUND IN BED. NEW ORDERS GIVEN BY ANA ROSA NEWTON FOR DR. UPTON. NITRO STAT GIVEN AND ATIVAN 1 MG IVP. WILL MONITOR.
--- NOTE | 2020-08-07 12:00 | NUR ---
2ND NITRO GIVEN FOR CONT. C/O C/P. SBP 113. WILL MONITOR.
--- NOTE | 2020-08-07 12:35 | NUR ---
CONT TO FLOP AROUN IN BED AND CRIES OUT IN PAIN. NEW ORDER GIVEN BY ANA ROSA NEWTON. PARKER NOTIFIES AMAN MAGALLANES FOR DR. ZELAYA. MORPHINE 2MG GIVEN IVP. WILL CONT. TO MONITOR.
--- NOTE | 2020-08-07 13:30 | NUR ---
EKG COMPLETED AND ON CHART. MORRIS OSWALD FROM SPECIALS AT . SPEAKS TO HER DRSimba OF NEW CONDITION AND BEHAVIOR. WILL CONT. TO MONITOR.
--- NOTE | 2020-08-07 14:23 | NUR ---
SBP 122. MORPHINE 4 MG GIVEN IVP FOR CONT. C/O PAIN.
[2020-08-07 17:18] LABS: CKMB 2.9 U/L (0.0-3.6); CREATINE KINASE 51 UL (21-215); TROPONIN-I 0.039 ng/mL (0.000-0.060)
--- NOTE | 2020-08-07 19:15 | NUR ---
RECEIVED REPORT, WILL ASSUME CARE OF PT, COMPLAINS OF PAIN, JUST RECEIVED PAIN MEDS AT 1837, BED IS LOW, SRX2, CALL LIGHT IN REACH, WILL CONTINUE PLAN OF CARE
--- NOTE | 2020-08-07 21:09 | NUR ---
GAVE PT PM MEDS, PT STARTED VOMITTING, DAREK RUCKER GAVE PRN APRESOLINE ORDERED,
--- NOTE | 2020-08-07 23:07 | NUR ---
SPOKE WITH JUAN MANUEL NEWTON ABOUT BP 193/103, WILL FOLLOW NEW ORDERS
[2020-08-08] VITALS (76 sets, daily range): BP systolic 89–228; BP diastolic 40–120
[2020-08-08 01:41] LABS: CKMB 59.3 U/L (0.0-3.6)
[2020-08-08 01:48] LABS: CREATINE KINASE 328 UL (21-215)
[2020-08-08 01:49] LABS: TROPONIN-I 8.857 ng/mL (0.000-0.060)
--- NOTE | 2020-08-08 02:08 | NUR ---
SPOKE WITH DR. DAVIS ABOUT TROPONIN 8.857, WAS TOLD HE WOULD SEE HER IN AM
--- NOTE | 2020-08-08 02:30 | NUR ---
BP 228/115
--- NOTE | 2020-08-08 03:38 | NUR ---
spoke with nellie, pt daughter to let her know pt was going back to icu
--- NOTE | 2020-08-08 03:47 | NUR ---
PT CONTINUES TO HAVE CHEST PAIN, N/V, TACHYCARDIA AND ELEVATED BP UNRELIEVED BY PRN MEDICATIONS AND ADDITIONAL NURSING INTERVENTIONS. LOC CHANGES INTERMITTENLY. ELEVATED CARDIAC ENZYMES AND RECENT EKG REPORTED TO PRIMARY AND CYBER SYSTEMS OPERATIONS SPECIALIST MACHINE FARMWORKER. RECEIVED ORDER TO TRANSFER PT TO THE ICU FOR CLOSER OBSERVATION AND INITIATION OF CARDENE GTT.
[2020-08-08 05:09] LABS: BASOPHILS 0.1 % (0-2); EOSINOPHILS 0 % (0-7); HEMATOCRIT 33.9 % (36.0-48.0); HEMOGLOBIN 10.9 g/dL (12-16); IMMATURE GRANULOCYTES 0.5 % (0-5); LYMPHOCYTE ABS# 1.94 10x3/uL (1.18-3.74); LYMPHOCYTES 10.2 % (15-50); MCH 25.8 pg (26.0-34.0); MCHC 32.2 g/dL (31.0-37.0); MEAN PLATELET VOLUME 10.8 fL (7.4-10.4); MONOCYTES 11.2 % (2-11); NEUTROPHIL ABS# 14.83 10x3/uL (1.56-6.13); PLATELET COUNT 303 10x3/uL (130-400); RBC 4.23 10x6/uL (4.00-5.40); RDW 14.6 % (11.5-14.5)
[2020-08-08 05:10] LABS: CAT - DOPAMINE 41 pg/mL (0-48); CAT - EPINEPHRINE 39 pg/mL (0-62); CAT - NOREPINEPHRINE 369 pg/mL (0-874)
[2020-08-08 05:10] LABS: MCV 80.1 fL (80.0-100.0)
[2020-08-08 05:38] LABS: CKMB 158.5 U/L (0.0-3.6)
[2020-08-08 05:41] LABS: CREATINE KINASE 737 UL (21-215)
[2020-08-08 05:42] LABS: TROPONIN-I 20.106 ng/mL (0.000-0.060)
--- NOTE | 2020-08-08 05:56 | NUR ---
DR HORNER NOTIFIED REGARDING AM TROPONIN, UPDATED REGARDING PT PROGRESS, NO FURTHER ORDERS RECEIVED.
[2020-08-08 06:49] LABS: ALBUMIN 3.4 g/dL (3.4-5.0); ANION GAP 19.1 mmol/L (8-16); BILIRUBIN - TOTAL 0.33 mg/dL (0.2-1.3); CALCIUM 9.7 mg/dL (8.5-10.1); CARBON DIOXIDE 20.9 mmol/L (21.0-32.0); CREATININE - SERUM 1.1 mg/dL (0.6-1.3); PROTEIN - SERUM 7.9 g/dL (6.4-8.2)
--- NOTE | 2020-08-08 15:24 | CN ---
PATIENT NAME:SHARON APONTE MEDICAL RECORD: [id number] : 71 LOCATION:[facility]MIN.2303 ADMIT DATE: 07/30/20 ACCOUNT: [id number] CONSULTING PHYSICIAN: LEXII HORNER MD REFERRING PHYSICIAN: ANDIE DOMÍNGUEZ DO DATE OF CONSULTATION: 07/30/2020 HISTORY OF PRESENT ILLNESS: The patient is a 44-year-old -Iraqi female with multiple medical problems including atherosclerotic heart disease, history of coronary artery bypass grafting (approximately 6 years ago), angina pectoris, diabetes mellitus, hyperlipidemia, peripheral vascular disease, who was admitted with episodes of chest pain. The patient states she was recently evaluated a week ago in [facility] cardiology group by Dr. Walton regarding her chest pain symptoms. The patient states she underwent a left heart catheterization at that time. The patient resumed all home medication regimen. I was asked to evaluate from a cardiovascular standpoint. PAST MEDICAL HISTORY: 1. Atherosclerotic heart disease. 2. Angina pectoris. 3. History of coronary artery bypass graft. 4. Peripheral vascular disease - history of left subclavian stenosis. 5. Diabetes mellitus. 6. Hyperlipidemia. 7. Hypertension. 8. Chronic chest wall pain. PHYSICAL EXAMINATION: GENERAL: Pleasant, black female in apparent distress. VITAL SIGNS: Blood pressure 160s/90s, pulse 90s (irregular). HEENT: Sclerae are muddy; conjunctivae pink. NECK: Supple. No appreciated JVD. HEART: Regular rhythm and rate, II/ systolic murmur; CHEST: Well-healed midsternal scar; chest wall pain and discomfort from palpitations. ABDOMEN: Benign. Bowel sounds positive. EXTREMITIES: Negative for edema. NEUROLOGIC: Nonfocal. MEDICATIONS: 1. Imdur 30 mg a day. 2. Keppra 250 mg b.i.d. 3. Coreg 6.25 mg daily. 4. Aspirin 81 mg daily. 5. Plavix 75 mg daily. 6. Protonix 40 mg daily. LABORATORY AND DIAGNOSTIC DATA: White blood cell count is 6.3, hemoglobin and hematocrit 9.6 and 31.4, and platelet count is 280. Sodium 139, potassium 4.5, BUN 15, creatinine is 1.2, troponin 0.040 (negative). TSH 0.69. EKG normal sinus rhythm, 90 beats per minute, no acute ST-T wave changes. ASSESSMENT: 1. Atherosclerotic heart disease. CONSULT REPORT [id number] CHANDLERMIKOSHARON 2. Angina pectoris. 3. History of coronary artery bypass grafting. 4. Peripheral vascular disease - left subclavian stenosis. 5. Diabetes mellitus. 6. Hyperlipidemia. 7. Hypertension. 8. Chest wall pain/discomfort - chronic. PLAN: Continue current medical management at this time. There is no evidence of acute cardiac decompensation/event at this time. We will resume home medication regimen. Also, recommend obtaining a recent left heart catheterization at [facility] for review. Further recommendations clinically indicated. Thank you for allowing me to participate in the care of this patient. TRANSINT:[id number] Voice Confirmation ID: [id number] DOCUMENT ID: [id number] LEXII HORNER MD at 1524 CC: [id number] DICTATION DATE: 07/30/20 1456 ASSORTER: 07/30/20 1521 ADM IN [place] [id number] [place] [id number]
--- NOTE | 2020-08-08 16:51 | NUR ---
1630 PT RECIEVED FROM THE ED.. SEE ASSESMENT FOR PATIENT FINDINGS.. LEFT LEG IS UNDRESSED AND ASSESED REDRESSED WITH 4X4 ADAPTIC AND ROLLED GAUZE.. MEPLEX DRESSINGH PLACED ON BUTTOCKS FOR REDNESS... PT IS AWAKE STATES PAIN A 10 HYDROCODONE GIVEN... IV FLUID HUNG AT 30CC/HR AND PIGGYBACK ANTIBIOTIC STARTED.. REFUSES DIET TRAY GLIPIZIDE IS HELD..
--- NOTE | 2020-08-08 17:50 | NUR ---
0700 BEDSIDE SHIFT REPORT RECIEVED AND CARE ASSUMMED OF PATIENT.. SEE FLOW SHEET FOR SHIFT ASSESMENT FINDINGS.. PATIENT C/O PAIN ... IV INFUSING BP ELEVEATED AND PRESSOR INFUSING CARDENE.. AT 7.. HEPARIN DRIP AT 1000UNITS .. NS AT 75 0900 RENAL LOADING UNIT OPERATOR POWDER CHARGING IN TO SEE PATIENT IUPDATE IS GIVEN.. 1000 ATIVAN GIVEN PER JUN 1044 DR DAVIS IN TO SEE PATIENT UPDATE GIVEN.. [address] MAYFIELD MORPHINE FOR PAIN 1200 DAUGHTER AT BEDSIDE.. 1530 MORPHINE GIVEN DAUGHTER LEAVING AT THIS TIME.. PATIENT BP HAS LOWERED.. CARDENE DRIP IS WEANED /TITRATED AT THIS TIME.. HR IS NOW 79 1630 CONITNUE TO TITRATE CARDENE DOWN HR CONTINUES 78 1730 CARDENE NOW AT 4 PT HR IN 70s PATIENT IS REFUSING DINNER STATING CONTINUED NAUSEA 1800 TITRATE CARDENE
[2020-08-09] VITALS (25 sets, daily range): BP systolic 110–195; BP diastolic 67–121
[2020-08-09 05:10] LABS: BASOPHILS 0.1 % (0-2); EOSINOPHILS 0 % (0-7); HEMATOCRIT 30.5 % (36.0-48.0); HEMOGLOBIN 9.7 g/dL (12-16); IMMATURE GRANULOCYTES 0.3 % (0-5); LYMPHOCYTE ABS# 2.31 10x3/uL (1.18-3.74); LYMPHOCYTES 19.2 % (15-50); MCH 25.6 pg (26.0-34.0); MCHC 31.8 g/dL (31.0-37.0); MCV 80.5 fL (80.0-100.0); MEAN PLATELET VOLUME 10.6 fL (7.4-10.4); MONOCYTES 10.1 % (2-11); NEUTROPHIL ABS# 8.44 10x3/uL (1.56-6.13); NEUTROPHILS 70.3 % (40-80); PLATELET COUNT 254 10x3/uL (130-400); RBC 3.79 10x6/uL (4.00-5.40); RDW 14.7 % (11.5-14.5)
[2020-08-09 05:37] LABS: ALBUMIN 2.9 g/dL (3.4-5.0); BILIRUBIN - TOTAL 0.38 mg/dL (0.2-1.3); CALCIUM 8.5 mg/dL (8.5-10.1); CARBON DIOXIDE 24.2 mmol/L (21.0-32.0); POTASSIUM - SERUM 4.2 mmol/L (3.5-5.1); PROTEIN - SERUM 6.1 g/dL (6.4-8.2)
[2020-08-09 05:38] LABS: CREATININE - SERUM 1.5 mg/dL (0.6-1.3)
--- NOTE | 2020-08-09 08:31 | NUR ---
0730-RECIEVD AWAKE -DOUBLED OVER -STATED SEVERE PAIN/ SEVERE NAUSEA-STATED "WHY AM I NOT GETTING ANY BETTER 0830-RENAL SERVICES AT BEDSIDE-STATUS REPORT AND PT STATEMENTS GIVEN-
[2020-08-09 08:45] LABS: AMYLASE - SERUM 33 U/L (25-115); LIPASE 76 U/L (73-393)
--- NOTE | 2020-08-09 09:48 | NUR ---
0850-to cat scan for abd pelvis via bed-pt able to transfer bed to table 0855-returned to rm -stated severe nausea-renal services -mabel vegetable specker-in unit -current lab results given-pt continued complaint of nausea- 914-nibp 194 sys-cardene gtt restarted-compazine 10mg iv given-pt not able to tolerate po meds at this time 0930-cardene gtt increased to 2mg-pt appears to bed resting at this time
--- NOTE | 2020-08-09 13:43 | NUR ---
DR DAVIS AT BEDSIDE -STATUS REPORT GIVEN-STRESSED TO USE NTG GTT FOR NIBP CONTROL
--- NOTE | 2020-08-09 16:26 | NUR ---
5474-DR MANNING INFORMED OF DR DAVIS CONCERN REGARDING NEED FOR SPECIALS AND SUBCLAVIEN OPENING NEED-STRESSED PT NOT COOPERATIVE ON PRIOR ATTEMPT
--- NOTE | 2020-08-09 17:00 | NUR ---
dulcolax supp repeated
--- NOTE | 2020-08-09 20:56 | NUR ---
WHEN ASSESSING PT, PT STATED SHE WAS IN PAIN RATED 10. PRN MORPHINE ADMINISTERED
[2020-08-10] VITALS (25 sets, daily range): BP systolic 98–163; BP diastolic 62–116
--- NOTE | 2020-08-10 01:00 | NUR ---
PT PUSH CALL LIGHT AND SAID SHE WAS IN PAIN AGAIN. PT APPEARS TO BE ANXIOUS. PRN PAIN MED AND PRN ATIVAN ADMINISTERED
[2020-08-10 05:48] LABS: BASOPHILS 0.1 % (0-2); EOSINOPHILS 0.1 % (0-7); HEMATOCRIT 29.1 % (36.0-48.0); HEMOGLOBIN 9.2 g/dL (12-16); IMMATURE GRANULOCYTES 0.4 % (0-5); LYMPHOCYTE ABS# 2.42 10x3/uL (1.18-3.74); LYMPHOCYTES 30.6 % (15-50); MCH 25.3 pg (26.0-34.0); MCHC 31.6 g/dL (31.0-37.0); MCV 80.2 fL (80.0-100.0); MEAN PLATELET VOLUME 10.9 fL (7.4-10.4); MONOCYTES 13.3 % (2-11); NEUTROPHILS 55.5 % (40-80); PLATELET COUNT 260 10x3/uL (130-400); RBC 3.63 10x6/uL (4.00-5.40); RDW 14.2 % (11.5-14.5)
[2020-08-10 05:58] LABS: WBC 7.9 10x3/uL (4.8-10.8)
[2020-08-10 06:03] LABS: ALBUMIN 2.7 g/dL (3.4-5.0); ANION GAP 12.5 mmol/L (8-16); BILIRUBIN - TOTAL 0.37 mg/dL (0.2-1.3); CALCIUM 8.7 mg/dL (8.5-10.1); CARBON DIOXIDE 24.2 mmol/L (21.0-32.0); CREATININE - SERUM 1.4 mg/dL (0.6-1.3); POTASSIUM - SERUM 3.7 mmol/L (3.5-5.1); PROTEIN - SERUM 6.1 g/dL (6.4-8.2)
--- NOTE | 2020-08-10 10:38 | NUR ---
Nutrition follow-up: Diet order: Consistent CHO PO Intake poor due to continued N/V and increased abdominal pain Labs reviewed; glucose now under better control Wt: 123# No Bm charted; pt receiving colace, dulcolax supp, senekot Will need nutrition support within 24 hours if po intake does not improve. Pt may benefit from ProcalAmine PPN @ 75 ml/hr for short-term nutrition support. RDN follow-up: 08/12/20
--- NOTE | 2020-08-10 19:00 | NUR ---
PT AND REPORT RECIEVED,PT LAYING IN BED RESTING. SEE SHIFT ASSESSMENT FOR ASSESSMENT FINDINGS. CALL LIGHTIN REACH, BED IN LOWEST POSITION. WILL CONTINUE TO MONITOR
[2020-08-11] VITALS (26 sets, daily range): BP systolic 90–165; BP diastolic 60–112
[2020-08-11 05:13] LABS: BASOPHILS 0.1 % (0-2); EOSINOPHILS 0 % (0-7); HEMOGLOBIN 10.6 g/dL (12-16); IMMATURE GRANULOCYTES 1.1 % (0-5); LYMPHOCYTE ABS# 0.98 10x3/uL (1.18-3.74); LYMPHOCYTES 11.2 % (15-50); MCH 25.7 pg (26.0-34.0); MCHC 32.1 g/dL (31.0-37.0); MCV 79.9 fL (80.0-100.0); MEAN PLATELET VOLUME 10.9 fL (7.4-10.4); MONOCYTES 3.2 % (2-11); NEUTROPHIL ABS# 7.41 10x3/uL (1.56-6.13); NEUTROPHILS 84.4 % (40-80); PLATELET COUNT 285 10x3/uL (130-400); RBC 4.13 10x6/uL (4.00-5.40); RDW 14.1 % (11.5-14.5); WBC 8.8 10x3/uL (4.8-10.8)
[2020-08-11 05:18] LABS: INR 1.11 (0.85-1.17); PROTIME 13.2 SECONDS (11.6-15.0)
[2020-08-11 05:20] LABS: APTT 61.5 SECONDS (22.8-39.4)
[2020-08-11 05:42] LABS: ALBUMIN 3.3 g/dL (3.4-5.0); ANION GAP 18.5 mmol/L (8-16); BILIRUBIN - TOTAL 0.36 mg/dL (0.2-1.3); CALCIUM 9.1 mg/dL (8.5-10.1); CARBON DIOXIDE 23.3 mmol/L (21.0-32.0); CREATININE - SERUM 1.3 mg/dL (0.6-1.3); POTASSIUM - SERUM 3.8 mmol/L (3.5-5.1); PROTEIN - SERUM 7.4 g/dL (6.4-8.2)
--- NOTE | 2020-08-11 06:00 | NUR ---
I have reviewed this patient and I concur with the Shift Assessment completed by the Licensed Practical Nurse today this shift.
--- NOTE | 2020-08-11 11:30 | NUR ---
PT OFF UNIT W/ IR. PER IR RN, HEPARIN GTT WAS TURNED OFF.
--- NOTE | 2020-08-11 12:11 | NUR ---
RANDOM VANC [address] FELIZ, CASSANDRA DENG, AND HERNAN LOPEZ RN, AT BEDSIDE DISCUSSING THAT THE ABX WERE CHARTED, BUT NOT GIVEN. GIVING STAT DOSES NOW.
--- NOTE | 2020-08-11 13:08 | NUR ---
RECEIVED BACK FROM IR. PULSES INTACT. RIGHT GROIN SOFT. TEACHING PROVIDED.
[2020-08-11 14:04] LABS: PLT FUNCT.(P2Y12) PLAVIX 261 PRU (194-418)
--- NOTE | 2020-08-11 15:20 | NUR ---
SPOKE W/ RICHAR ESPINOZA CANNON CREWMEMBER FOR NEPHRO. CLARIFIES THAT NO LONGER NEEDS RENOGRAM IN NU MED B/C STENT ALREADY PLACED. ALSO OBTAINED DIET ORDER.
--- NOTE | 2020-08-11 19:00 | NUR ---
BEDSIDE REPORT COMPLETED WITH OFF GOING NURSE. PT IS SITTING UP IN BED AT THIS TIME ON HER CELLPHONE. NO NEEDS VOICED AT THIS TIME. NO S/S OF DISTRESS. SHIFT ASSESSMENT COMPLETED, SEE FLOWSHEET FOR DETAILS.
[2020-08-12] VITALS (15 sets, daily range): BP systolic 83–149; BP diastolic 62–100
[2020-08-12 04:41] LABS: BASOPHILS 0 % (0-2); EOSINOPHILS 0 % (0-7); HEMATOCRIT 29.3 % (36.0-48.0); HEMOGLOBIN 9.2 g/dL (12-16); IMMATURE GRANULOCYTES 0.4 % (0-5); LYMPHOCYTES 10.5 % (15-50); MCH 25.1 pg (26.0-34.0); MCHC 31.4 g/dL (31.0-37.0); MCV 80.1 fL (80.0-100.0); MONOCYTES 9.8 % (2-11); NEUTROPHILS 79.3 % (40-80); PLATELET COUNT 253 10x3/uL (130-400); RBC 3.66 10x6/uL (4.00-5.40); RDW 13.9 % (11.5-14.5); WBC 10.5 10x3/uL (4.8-10.8)
[2020-08-12 05:04] LABS: ALBUMIN 2.8 g/dL (3.4-5.0); ANION GAP 17.6 mmol/L (8-16); BILIRUBIN - TOTAL 0.1 mg/dL (0.2-1.3); CALCIUM 8.3 mg/dL (8.5-10.1); POTASSIUM - SERUM 3.6 mmol/L (3.5-5.1); PROTEIN - SERUM 6.4 g/dL (6.4-8.2)
--- NOTE | 2020-08-12 10:05 | NUR ---
Nutrition follow-up: Diet order: Consistent CHO Pt has been NPO for renal stent placement Labs reviewed WT: 131# Will continue to provide food choices and honor food preferences within diet restrictions. RDN follow-up: 08/13/20
[2020-08-12 12:12] LABS: META PL - METANEPHRINE 57.6 pg/mL (0.0-88.0); META PL - NORMETANEPHRINE 153.9 pg/mL (0.0-125.8)
--- NOTE | 2020-08-12 16:17 | NUR ---
NURSE JUST RECEIVED PATIENT FROM ICU VIA WHEELCHAIR. PATIENT DOES GET A LITTLE DIZZY WHEN STANDING BUT MAINTAINS HER BALANCE. PATIENT IS ASKING FOR PAIN MEDICATION. PLAN OF CARE REVIEWED AND ASSESSMENT HAS BEEN COMPLETED. CALL LIGHT IN REACH. NAD NOTED.
--- NOTE | 2020-08-12 20:46 | NUR ---
RECIEVED LAYING IN BED WITH EYES CLOSED. AROUSED TO VERBAL STIMULI. SMILING AND PLEASSNT. DENIES ANY NEEDS.
[2020-08-13] VITALS (7 sets, daily range): BP systolic 101–143; BP diastolic 59–92
[2020-08-13 07:25] LABS: BASOPHILS 0.1 % (0-2); EOSINOPHILS 0.4 % (0-7); HEMATOCRIT 30.6 % (36.0-48.0); HEMOGLOBIN 9.7 g/dL (12-16); IMMATURE GRANULOCYTES 0.4 % (0-5); LYMPHOCYTE ABS# 3.28 10x3/uL (1.18-3.74); LYMPHOCYTES 32.5 % (15-50); MCH 25.7 pg (26.0-34.0); MCHC 31.7 g/dL (31.0-37.0); MEAN PLATELET VOLUME 11.2 fL (7.4-10.4); MONOCYTES 8.9 % (2-11); NEUTROPHIL ABS# 5.83 10x3/uL (1.56-6.13); NEUTROPHILS 57.7 % (40-80); PLATELET COUNT 271 10x3/uL (130-400); RBC 3.78 10x6/uL (4.00-5.40); RDW 14.5 % (11.5-14.5); WBC 10.1 10x3/uL (4.8-10.8)
[2020-08-13 07:43] LABS: ALBUMIN 2.8 g/dL (3.4-5.0); ANION GAP 13.5 mmol/L (8-16); BILIRUBIN - TOTAL 0.08 mg/dL (0.2-1.3); CARBON DIOXIDE 25.2 mmol/L (21.0-32.0); CREATININE - SERUM 1.4 mg/dL (0.6-1.3); POTASSIUM - SERUM 3.7 mmol/L (3.5-5.1); PROTEIN - SERUM 5.9 g/dL (6.4-8.2)
--- NOTE | 2020-08-13 08:00 | NUR ---
PT RECEIVED AWAKE AND ALERT IN BED. ASKING FOR PAIN MEDS. DOSE GIVEN AND IV FLUID INITIATED PER ORDER. STATES RENAL DR TOLD HER SHE WOULD BE HERE FOR ANOTHER DAY.
--- NOTE | 2020-08-13 11:08 | NUR ---
Nutrition Reassessment/Follow-up: S/p L subclavian artery stenting & R renal artery stenting on 08/11. Ate 100% of breakfast this AM. C/o nausea without vomiting. Reports hard BM today. Diet: Diabetic PO intake: 75% avg x 3 meals Wt: 131.1# (08/12) Labs noted: BUN 22, Cre 1.4, GFR 43, Glu 91, Ca 8.0, Alb 2.8 Meds noted: Protonix, Senokot, Reglan, Colace, Zofran, Humulin, Lantus, NS @ 75, electrolyte protocol Est needs: 9475-9862 kcal/day (25-30 kcal/kg) 35-50 g protein/day (0.6-0.8 g/kg) 9460-1907 mL fluid/day (1 mL/kcal) or per MD -Encourage PO intake and honor food preferences within diet restrictions. -Monitor wt. -RD follow-up: 08/18
[2020-08-13 14:11] LABS: RENIN ACTIVITY - PLASMA 6.774 ng/mL/hr (0.167-5.380)
[2020-08-14 05:33] VITALS: BP 129/67
[2020-08-14 06:00] LABS: BASOPHILS 0.1 % (0-2); EOSINOPHILS 1.6 % (0-7); HEMATOCRIT 30.2 % (36.0-48.0); HEMOGLOBIN 9.4 g/dL (12-16); IMMATURE GRANULOCYTES 0.5 % (0-5); LYMPHOCYTE ABS# 2.93 10x3/uL (1.18-3.74); LYMPHOCYTES 27.4 % (15-50); MCH 25.5 pg (26.0-34.0); MCHC 31.1 g/dL (31.0-37.0); MCV 82.1 fL (80.0-100.0); MONOCYTES 11.8 % (2-11); NEUTROPHIL ABS# 6.26 10x3/uL (1.56-6.13); NEUTROPHILS 58.6 % (40-80); PLATELET COUNT 272 10x3/uL (130-400); RBC 3.68 10x6/uL (4.00-5.40); RDW 14.4 % (11.5-14.5); WBC 10.7 10x3/uL (4.8-10.8)
[2020-08-14 06:24] LABS: ALBUMIN 2.7 g/dL (3.4-5.0); ANION GAP 10.5 mmol/L (8-16); BILIRUBIN - TOTAL 0.07 mg/dL (0.2-1.3); CARBON DIOXIDE 25.9 mmol/L (21.0-32.0); CREATININE - SERUM 1.5 mg/dL (0.6-1.3); MAGNESIUM - SERUM 1.7 mg/dL (1.8-2.4); POTASSIUM - SERUM 3.4 mmol/L (3.5-5.1)
[2020-08-14 06:39] LABS: PLT FUNCT.(P2Y12) PLAVIX 7 PRU (194-418)
--- NOTE | 2020-08-14 07:00 | NUR ---
PT LYING IN BED WITH EYES CLOSED. RESP EVEN AND UNLABORED. AAO X4. DENIES NEEDS AT THIS TIME. CLIR. BED IN LOWEST POSITION. SIDE RAILS X2
[2020-08-14 11:08] VITALS: BP 164/87
[2020-08-14] MEDS ORDERED: HYDRALAZINE HCL50 MG PO (11:19)
[2020-08-14] MEDS ORDERED: NORVASC10 MG PO (11:19)
[2020-08-14] MEDS ORDERED: ISOSORBIDE MONO60 M1 PO (11:19)
[2020-08-14] MEDS ORDERED: ULTRAM50 MG PO (12:34)
--- NOTE | 2020-08-14 13:30 | NUR ---
PT DC HOME WITH FAMILY MEMBER. IV DC. CATH TIP INTACT. DC INSTRUCTIONS PROVIDED VERBALLY AND WRITTEN. PT VERBALIZED UNDERSTANDING
--- NOTE | 2020-08-14 18:35 | MORECARE ---
CASE MANAGEMENT DISCHARGE SUMMARY PATIENT: SHARON APONTE UNIT: [id number] ADM DATE: 07/30/20 AGE: 44 : 71 SEX: F ROOM/BED: D.2128 AUTHOR: KRISTOPHER,DOC PHYSICIAN: REFERRING PHYSICIAN: ANDIE DOMÍNGUEZ DO DATE OF SERVICE: 08/14/20 Case Management Discharge Planning Summary COMMENTS ENTERED DATE: 08/14/20 18:25 CT COMMENT TYPE: Discharge Planning REVIEWER: Pauline Galindo CM met with patient to discuss discharge planning/needs. She states she lives at [address] [place] [address]. States she is independent with all her care and has no DME. States she would like a cane and asks for a Rx for a cane. I provided this as well as a Rx for glucometer. I called [facility] and they state Medicaid will not pay for a glucometer. I provided her one from [facility] as well as lancets and strips. She states she has no PCP. I gave her written instructions on the number to [facility] for a Medicaid doctor as well as health connections number. She states her son, Alvaro Petit will transport her home. His number is [phone]. Denies other needs at this time. Home today. DCP REVIEW SUMMARY ANTICIPATED D/C DATE: EXPECTED LOS : CASE STATUS: DCP Initiated INITIAL REVIEW: 08/14/2020 INITIAL REVIEWER: Pauline Galindo FINAL DISCHARGE DISPOSITION: : FINAL REVIEWER: FINAL REVIEW DATE: DCP [facility] Questions & Answers QUESTION: ANSWER : PATIENT: SHARON APONTE ENCOUNTER: [id number] MEDICAL RECORD#: [id number] ADMISSION DATE: 07/30/2020 DISCHARGE DATE: 08/14/2020 ATTENDING MD: ANDIE LABOY : AGE: 44 MARITAL STATUS: S DC PLAN ID: [id number] FACILITY: [facility] PRINTED ON: 08/14/20 18:35 CT All edits/amendments must be made on the electronic document DICTATION DATE: 08/14/201834 ADJUSTO WRITER OPERATOR: EMILY 08/14/201834 RPT#: [id number] DC DATE:08/14/20 STATUS: DIS IN [facility] [address] [place] [address] END OF REPORT
[2020-08-17 12:10] LABS: RENIN ACTIVITY - PLASMA 2.024 ng/mL/hr (0.167-5.380)
== END 2020-08-14 13:30 | disposition home or self-care (01) | DRG 253 ==
LOC: D.ER 10:27 → D.M2 11:05 → D.CVICU 11:05 → D.ICU 11:05 → D.CVICU 08-01 14:44 → D.M2 08-04 18:44 → D.ICU 08-08 03:46 → D.M2 08-12 16:08
PROVIDERS: Emergency Medicine; Family Medicine; Internal Medicine Cardiovascular Disease; Internal Medicine Nephrology; Radiology Diagnostic Radiology; Thoracic Surgery (Cardiothoracic Vascular Surgery); ADMIT Family Medicine; ATTEND Family Medicine
PROC: 037 Upper Arteries, Dilation (ICD-10-PCS; 2020-08-11)
PROC: 04793DZ Dilation of Right Renal Artery with Intraluminal Device, Percutaneous Approach (ICD-10-PCS; principal; 2020-08-11 12:00)
DX: I70.8 Atherosclerosis of other arteries (principal); I25.110 Atherosclerotic heart disease of native coronary artery with unstable angina pectoris; N17.9 Acute kidney failure, unspecified; R07.9 Chest pain, unspecified; E78.5 Hyperlipidemia, unspecified; G89.29 Other chronic pain; I73.9 Peripheral vascular disease, unspecified; Z95.0 Presence of cardiac pacemaker; R07.89 Other chest pain; Z79.84 Long term (current) use of oral hypoglycemic drugs; F12.10 Cannabis abuse, uncomplicated; F41.9 Anxiety disorder, unspecified; F32.9 Major depressive disorder, single episode, unspecified; R00.0 Tachycardia, unspecified; I70.1 Atherosclerosis of renal artery; N18.9 Chronic kidney disease, unspecified; E11.22 Type 2 diabetes mellitus with diabetic chronic kidney disease; I12.9 Hypertensive chronic kidney disease with stage 1 through stage 4 chronic kidney disease, or unspecified chronic kidney disease

== ENCOUNTER 2020-10-07 13:42 | Inpatient (IN) | payer MEDICAID ==
[~2020-10-07] VITALS: Ht 160 cm; Wt 63.5 kg
[2020-10-07] VITALS (23 sets, daily range): BP systolic 105–222; BP diastolic 60–141
[~2020-10-07 13:42] MED LIST changes: +HYDRALAZINE HCL50 MG PO; +ISOSORBIDE MONO60 M1 PO; +METOPROLOL TART50 MG PO; +NORVASC10 MG PO; +ULTRAM50 MG PO
--- NOTE | 2020-10-07 14:18 | NUR ---
STARTED CARDORONE GTT AT 5MG/H
[2020-10-07 14:37] LABS: CALC OSMOLALITY 278 mosm/kg (275-300); CALCIUM 8.4 mg/dL (8.5-10.1); CARBON DIOXIDE 30.2 mmol/L (21.0-32.0); CHLORIDE - SERUM 103 mmol/L (98-107); CREATININE - SERUM 1.1 mg/dL (0.6-1.3); GLUCOSE 134 mg/dL (74-106); POTASSIUM - SERUM 3.7 mmol/L (3.5-5.1); SODIUM 139 mmol/L (136-145); UREA NITROGEN 10 mg/dL (7-18); eGFR NON AFRICAN AMERICAN 57 mL/min (90-120)
[2020-10-07 14:44] LABS: BASOPHILS 1.4 % (0-2); EOSINOPHILS 2.1 % (0-7); HEMATOCRIT 31.7 % (36.0-48.0); HEMOGLOBIN 9.8 g/dL (12-16); LYMPHOCYTES 34.2 % (15-50); MCHC 30.8 g/dL (31.0-37.0); MCV 77.9 fL (80.0-100.0); MEAN PLATELET VOLUME 8.1 fL (7.4-10.4); MONOCYTES 4.9 % (2-11); NEUTROPHILS 57.4 % (40-80); RBC 4.07 10x6/uL (4.00-5.40); RDW 16.3 % (11.5-14.5); WBC 6.6 10x3/uL (4.8-10.8)
[2020-10-07 14:46] LABS: PLATELET COUNT 416 10x3/uL (130-400)
[2020-10-07 14:52] LABS: ALKALINE PHOSPHATASE 97 U/L (30-120); ALT (SGPT) 19 U/L (10-68); BILIRUBIN - TOTAL 0.69 mg/dL (0.2-1.3); CKMB 1.6 U/L (0.0-3.6); CREATINE KINASE 51 UL (21-215); MAGNESIUM - SERUM 1.7 mg/dL (1.8-2.4); PROTEIN - SERUM 7.8 g/dL (6.4-8.2); TROPONIN-I 0.052 ng/mL (0.000-0.060)
--- NOTE | 2020-10-07 15:00 | NUR ---
TITRATED GTT TO 10MG/HR
--- NOTE | 2020-10-07 19:26 | NUR ---
PT PROVIDED WITH A LEMON KALISPEL SODA UPON REQUEST.
--- NOTE | 2020-10-07 20:32 | NUR ---
PT REPORTS A HEADACHE AT THIS TIME. PT ADVISED NURSE COULD BRING HER TYLENOL AND PT STATES "WHAT ABOUT MY MORPHINE?" NURSE ADVISED IT WAS ORDERED Q4H AND WAS NOT DUE UP YET.
--- NOTE | 2020-10-07 21:00 | NUR ---
PT PROVIDED WITH REQUESTED TYLENOL. REFUSED AT THIS TIME STATES SHE WOULD RATHER WAIT ON NEXT DOSE OF MORPHINE.
--- NOTE | 2020-10-07 23:10 | NUR ---
CRITICAL LAB VALUE CALLED TO ED. TROPONIN ELEVATED. TABATHA YOU APRN FOR [facility] IN DEPARTMENT. NOTIFIED AND STATED TO [facility] AND NOTIFY THEM. REPEAT EKG OBTAINED AT THIS TIME.
--- NOTE | 2020-10-07 23:24 | NUR ---
DR.ST GHOSH NOTIFIED OF ELEVATED TROPONIN. STATES TO CANCEL CARDIAC ENZYMES AT THIS TIME. NO FURTHER ORDERS AT THIS TIME.
[2020-10-08] VITALS (12 sets, daily range): BP systolic 103–148; BP diastolic 54–79; Ht 160 cm; Wt 63.5 kg
[2020-10-08 04:55] LABS: BASOPHILS 0.6 % (0-2); EOSINOPHILS 2.2 % (0-7); HEMATOCRIT 30.4 % (36.0-48.0); HEMOGLOBIN 9.4 g/dL (12-16); LYMPHOCYTES 25.5 % (15-50); MCH 24.2 pg (26.0-34.0); MCHC 30.9 g/dL (31.0-37.0); MCV 78.3 fL (80.0-100.0); MEAN PLATELET VOLUME 8.1 fL (7.4-10.4); MONOCYTES 8.2 % (2-11); NEUTROPHILS 63.5 % (40-80); PLATELET COUNT 398 10x3/uL (130-400); RBC 3.88 10x6/uL (4.00-5.40); RDW 16.3 % (11.5-14.5); RETIC 3.67 % (0.45-2.28); WBC 7.4 10x3/uL (4.8-10.8)
[2020-10-08 05:14] LABS: % SATURATION 7 % (15-55); IRON 29 ug/dl (35-150); TOTAL IRON BIND CAPACITY 380 ug/dl (260-445); UNSAT IRON BIND CAPACITY 351 ug/dl (150-375)
[2020-10-08 05:49] LABS: ALBUMIN 2.7 g/dL (3.4-5.0); BILIRUBIN - TOTAL 0.53 mg/dL (0.2-1.3); CALCIUM 8.2 mg/dL (8.5-10.1); CREATININE - SERUM 1.2 mg/dL (0.6-1.3); PROTEIN - SERUM 7.3 g/dL (6.4-8.2)
--- NOTE | 2020-10-08 09:14 | NUR ---
LEFT FOREARM IV INFULTRATED. REMOVED. HOT PACK APPLIED.
--- NOTE | 2020-10-08 09:14 | NUR ---
CARDENE DRIP DECREASED TO 3MG/H. PER DR. FELIZ'S ORDERS.
--- NOTE | 2020-10-08 10:36 | NUR ---
YESSENIA HERNANDEZ DISCONTINUED. BP 128/78.
--- NOTE | 2020-10-08 11:17 | NUR ---
BP IS 107/57 AT THIS TIME. STABLE OFF CARDENE DRIP.
--- NOTE | 2020-10-08 11:18 | NUR ---
BP STABLE OFF CARDENE AT 107/57.
--- NOTE | 2020-10-08 11:27 | NUR ---
MANDI, HOSPITALIST CHEMICAL APPLICATOR, CALLED FOR CHANGE IN ADMISSION TO MED II FROM ICU. CARDENE DRIP OFF, BP WNL.
--- NOTE | 2020-10-08 16:00 | NUR ---
DR. FELIZ NOTIFIED OF ADVERSE REACTION TO TRAMADOL AND PT REQUET FOR HYDROCODONE . ORDER OBTAINED.
--- NOTE | 2020-10-09 01:31 | NUR ---
PATIENT RESTLESS. VERBALIZES " MAYBE THIS DOSE OF MORPHINE WILL HELP ME GO TO SLEEP"
[2020-10-09 03:16] VITALS: BP 144/72
[2020-10-09 11:16] VITALS: BP 174/85
[2020-10-09] MEDS ORDERED: ZOFRAN4 MG PO (11:18)
--- NOTE | 2020-10-09 11:38 | NUR ---
PRIOR TO DISCHARGE, PT. GOT NAUSEATED AND VOMITED X2. GAVE HER ZOFRAN 4MG IVP. PT. ALSO C/O PAIN AND WAS GIVEN MORPHINE 4MG IVP. BP INCREASED TO 175/85--GAVE HER SCHEDULED HYDRALAZINE. I CALLED DR. PICHARDO REGARDING PT.'S BP, PAIN, AND N/V AND HE STATED THAT HE WOULD ESCRIPT SOME ZOFRAN TO PT.'S PHARMACY. WHILE I WAS ON THE PHONE W/ DR. PICHARDO, PT. ROLLED HERSELF OUT INTO HALLWAY AND STATED THAT SHE WAS READY TO GO HOME. I ASKED THE PT. IF SHE WAS SURE THAT SHE WANTED TO LEAVE AND SHE REPEATEDLY SAID THAT SHE WANTED TO LEAVE THE HOSPITAL. PT.'S [facility]-GAY EVEN ASKED PT. IF SHE WANTED TO STAY IN THE HOSPITAL AND THE PT. TOLD HER "NO I'VE BEEN DISCHARGED AND I WANT TO GO HOME." I INSTRUCTED THE PT.'S [id number]-BT-BZI TO BRING PT. BACK TO THE ER IF THE PT. CONT'D TO HAVE PAIN AND N/V.
--- NOTE | 2020-10-11 18:04 | MORECARE ---
CASE MANAGEMENT DISCHARGE SUMMARY PATIENT: SHRAON APONTE UNIT: [id number] ADM DATE: 10/07/20 AGE: 44 : 71 SEX: F ROOM/BED: D.E08 AUTHOR: KRISTOPHER,DOC PHYSICIAN: REFERRING PHYSICIAN: DESI DIAZ DO DATE OF SERVICE: 10/11/20 Case Management Discharge Planning Summary DCP REVIEW SUMMARY ANTICIPATED D/C DATE: EXPECTED LOS : CASE STATUS: DCP Not started INITIAL REVIEW: 10/07/2020 INITIAL REVIEWER: Demetrice Chan FINAL DISCHARGE DISPOSITION: : FINAL REVIEWER: FINAL REVIEW DATE: DCP [facility] Questions & Answers QUESTION: ANSWER : PATIENT: SHARON APONTE ENCOUNTER: [id number] MEDICAL RECORD#: [id number] ADMISSION DATE: 10/07/2020 DISCHARGE DATE: 10/09/2020 ATTENDING MD: DESI HIGGINS : AGE: 44 MARITAL STATUS: S DC PLAN ID: [id number] FACILITY: [facility] PRINTED ON: 10/11/20 18:04 CT All edits/amendments must be made on the electronic document DICTATION DATE: 10/11/201802 SOFTWARE TOOLS DEVELOPER: DM 10/11/201802 RPT#: [id number] DC DATE:10/09/20 STATUS: DIS IN [facility] [address] [place] [address] END OF REPORT
== END 2020-10-09 13:18 | disposition home or self-care (01) | DRG 305 ==
LOC: D.ER 13:42 → D.EDHOLD 14:25
PROVIDERS: Family Medicine; ADMIT Family Medicine; ATTEND Family Medicine
DX: I16.9 Hypertensive crisis, unspecified (principal); I25.110 Atherosclerotic heart disease of native coronary artery with unstable angina pectoris; D64.9 Anemia, unspecified; E83.42 Hypomagnesemia; G40.909 Epilepsy, unspecified, not intractable, without status epilepticus; I25.10 Atherosclerotic heart disease of native coronary artery without angina pectoris; J45.909 Unspecified asthma, uncomplicated; F41.8 Other specified anxiety disorders; Z91.14 Patient's other noncompliance with medication regimen; E11.65 Type 2 diabetes mellitus with hyperglycemia; F12.10 Cannabis abuse, uncomplicated